=== PATIENT | male | born 1960 | race Caucasian/White ===

== ENCOUNTER 2023-09-13 18:46 | Observation (INO) | payer BC ==
--- NOTE | 2023-09-13 20:45 | ED ---
Abdominal Pain HPI - General Chief Complaint: Abdominal Pain Stated Complaint: transfer-GI Time Seen by Provider: 09/13/23 19:26 Source: patient Mode of arrival: ambulatory Limitations: no limitations - History of Present Illness Initial Comments: 63-year-old male transferred from [facility] presenting to the ED with complaint of abdominal pain. Patient reports for the past week has had diffuse abdominal pain and increased bowel movements. Notes that he has been having up to 10 bowel movements a day and notes that they have been smaller than usual. No blood in the stool. No fever or chills. For this he saw his PCP who ordered a CAT scan which showed perforated acute diverticulitis with focal abscess but no free air. He was then seen at [facility] who provided him 4.5 mg of Zosyn IV at 4:16 PM and was transferred here for surgical evaluation. At this time, patient reports abdominal pain however does report some back pain after sitting in a hospital bed. No nausea or vomiting. Laboratory studies performed at [facility] significant for an elevated white blood cell count at 23. Patient is on Coumadin secondary to a history of atrial fibrillation. - Related Data Home Medications Medication Instructions Recorded Confirmed Cholecalciferol [Vitamin D3 (25 50 mcg PO DAILY 09/13/23 09/13/23 Mcg = 1000 Iu)] Magnesium Citrate and Oxide 250 mg PO DAILY 09/13/23 09/13/23 [Magnesium] Metoprolol Tartrate [Lopressor] 12.5 mg PO BID@0800,2000 09/13/23 09/13/23 Warfarin Sodium 2 mg PO HS@1800 09/13/23 09/13/23 Warfarin Sodium 4 mg PO HS@1800 09/13/23 09/13/23 Warfarin [Coumadin] 3 mg PO HS@1800 09/13/23 09/13/23 Allergies Allergy/AdvReac Type Severity Reaction Status Date / Time No Known Allergies Allergy Verified 09/13/23 20:57 Review of Systems ROS Statement: Those systems with pertinent positive or pertinent negative responses have been documented in the HPI. ROS Other: All systems not noted in ROS Statement are negative. Past Medical History Past Medical History: Atrial Fibrillation, Hypertension History of Any Multi-Drug Resistant Organisms: None Reported Past Surgical History: No Surgical Hx Reported Past Psychological History: No Psychological Hx Reported Smoking Status: Never smoker Past Alcohol Use History: None Reported Past Drug Use History: Marijuana General Exam Limitations: no limitations General appearance: alert, in no apparent distress Eye exam: Present: normal appearance Neck exam: Present: normal inspection Respiratory exam: Present: normal lung sounds bilaterally Cardiovascular Exam: Present: regular rate GI/Abdominal exam: Present: soft, other (Bowel sounds present. There is also an umbilical hernia.). Absent: distended, tenderness, guarding, rebound, rigid Neurological exam: Present: alert, oriented X3 Skin exam: Present: warm, dry Course Vital Signs 09/13/23 19:01 Temperature 98.3 F Pulse Rate 77 Respiratory 18 Rate Blood Pressure 125/77 O2 Sat by Pulse 95 Oximetry Medical Decision Making - Medical Decision Making Was pt. sent in by a medical professional or institution (, PA, TECHNICAL HEALTHCARE CONSULTANT, urgent care, hospital, or fpc...) When possible be specific @ -[facility] Did you speak to anyone other than the patient for history (EMS, parent, family, police, friend...)? What history was obtained from this source @ -No Did you review nursing and triage notes (agree or disagree)? Why? @ -I reviewed and agree with nursing and triage notes Were old charts reviewed (outside hosp., previous admission, EMS record, old EKG, old radiological studies, urgent care reports/EKG's, fpc records)? Report findings @ -Paperwork from [facility] reviewed. For further details please see HPI. Differential Diagnosis (chest pain, altered mental status, abdominal pain women, abdominal pain men, vaginal bleeding, weakness, fever, dyspnea, syncope, headache, dizziness, GI bleed, back pain, seizure, CVA, palpatations, mental health, musculoskeletal)? @ -Differential Abdominal Pain Men: Appendicitis, cholecystitis, diverticulosis, ischemic bowel, pancreatitis, hepatitis, UTI, gastroenteritis, AAA, incarcerated hernia, bowel obstruction, constipation, inflammatory bowel, hepatitis, peptic ulcer disease, splenic infarction, perforated viscus, testicular torsion, this is not meant to be an all-inclusive list EKG interpreted by me (3pts min.). @ -As above X-rays interpreted by me (1pt min.). @ -Chest x-ray pending at this time. CT interpreted by me (1pt min.). @ -None done U/S interpreted by me (1pt. min.). @ -None done What testing was considered but not performed or refused? (CT, X-rays, U/S, labs)? Why? @ -None What meds were considered but not given or refused? Why? @ -None Did you discuss the management of the patient with other professionals (professionals i.e. , PA, TECHNICAL HEALTHCARE CONSULTANT, lab, RT, psych nurse, criminal justice social worker, corporate development manager, teacher, customs officer, casework manager)? Give summary @ -Case discussed with Dr. Chavez of general surgery, who accepts admission of the patient. Advised additional dose of Zosyn with Flagyl. Patient will be kept NPO. Was smoking cessation discussed for >3mins.? @ -No Was critical care preformed (if so, how long)? @ -No Were there social determinants of health that impacted care today? How? (Homelessness, low income, unemployed, alcoholism, drug addiction, transportation, low edu. Level, literacy, decrease access to med. care, [facility], rehab)? @ -No Was there de-escalation of care discussed even if they declined (Discuss DNR or withdrawal of care, Hospice)? DNR status @ -No What co-morbidities impacted this encounter? (DM, HTN, Smoking, COPD, CAD, Cancer, CVA, ARF, Chemo, Hep., AIDS, mental health diagnosis, sleep apnea, morbid obesity)? @ -None Was patient admitted / discharged? Hospital course, mention meds given and route, prescriptions, significant lab abnormalities, going to OR and other pertinent info. @ -Admission 63-year-old male transferred from [facility]. Has been having diffuse abdominal pain and increased nonbloody bowel movements over the past week. CT outpatient performed today showed findings concerning for a perforated diverticulitis with abscess formation however no free air. Patient did have labs performed at [facility] with a white count significant for 23. Repeat laboratory testing at this time is pending. Patient will be admitted n.p.o. to surgical services with consult to medicine. IV antibiotics initiated. Discussed plan of care with patient and family who are in agreement. Undiagnosed new problem with uncertain prognosis? @ -No Drug Therapy requiring intensive monitoring for toxicity (Heparin, Nitro, Insulin, Cardizem)? @ -No Were any procedures done? @ -No Diagnosis/symptom? @ -Suspected perforated diverticulitis with abscess formation no free air Acute, or Chronic, or Acute on Chronic? @ -Acute Uncomplicated (without systemic symptoms) or Complicated (systemic symptoms)? @ -Complicated Side effects of treatment? @ -No Exacerbation, Progression, or Severe Exacerbation? @ -No Poses a threat to life or bodily function? How? (Chest pain, [place], [place], pneumonia, PE, COPD, DKA, ARF, appy, cholecystitis, CVA, Diverticulitis, Homicidal, Suicidal, threat to staff... and all critical care pts) @ -Possibly, however unlikely at this time. Disposition Clinical Impression: Perforated diverticulum Disposition: ADMITTED IP TO THIS HOSP Condition: Good Referrals: Brant Potts MD [Primary Care Provider] - 1-2 days Time of Disposition: 20:30
[2023-09-13] MEDS ORDERED: NALOXONE 0.4 MG/ML 1 ML VIAL IV PRN (21:15)
[2023-09-13] MEDS ORDERED: ONDANSETRON 4 MG/2 ML VIAL IVP PRN (21:15)
[2023-09-13] MEDS ORDERED: HYDROmorphone 1 MG/ML 1 ML SYRINGE IVP PRN (21:15)
[2023-09-13] MEDS: SODIUM CHLORIDE 0.9% 1,000 ML IV STA (21:23)
[2023-09-13] MEDS: HYDROmorphone 0.5 MG/0.5 ML SYRINGE IVP STA (21:24)
[2023-09-13] MEDS: metroNIDAZOLE-NS PMX 500 MG in SALINE 1 100ML.BAG IVPB STA (21:25)
[2023-09-13] MEDS: PIPERACILLIN-TAZOBACTAM 3.375 GM in SODIUM CHLORIDE 0.9% 100 ML IVPB STA (22:35)
[2023-09-13] MEDS: SODIUM CHLORIDE 0.9% 1,000 ML IV SCH (22:35)
--- NOTE | 2023-09-13 23:27 | XR ---
EXAMINATION TYPE: XR chest 1V portable DATE OF EXAM: 09/13/2023 COMPARISON: None INDICATION: Presurgical clearance TECHNIQUE: Single frontal view of the chest is obtained. FINDINGS: The heart size is normal. The pulmonary vasculature is normal. The lungs are clear. There may be mild elevation of the left diaphragm. IMPRESSION: 1. No acute pulmonary process.
[2023-09-13 23:50] LABS: HCT 32.9 % (39.0-53.0); HGB 10.4 gm/dL (13.0-17.5); RBC 3.94 m/uL (4.30-5.90); WBC 16.5 k/uL (3.8-10.6)
[2023-09-13 23:51] LABS: Basophils % (A) 0 %; Eosinophils # (A) 0.1 k/uL (0-0.7); Eosinophils % (A) 1 %; Hypochromasia Slight; Lymphocytes # (A) 0.6 k/uL (1.0-4.8); Lymphocytes % (A) 3 %; MCH 26.3 pg (25.0-35.0); MCHC 31.5 g/dL (31.0-37.0); MCV 83.5 fL (80.0-100.0); Mean Platelet Volume 7.8; Monocytes % (A) 6 %; Neutrophils # (A) 14.5 k/uL (1.3-7.7); Neutrophils % (A) 88 %; Platelet Count 331 k/uL (150-450); RDW 14.9 % (11.5-15.5)
[2023-09-14 00:08] LABS: ALT 17 U/L (4-49); AST 26 U/L (17-59); African American GFR (CKD) >90 (>60 ml/min/1.73 sqM); Albumin 3.2 g/dL (3.5-5.0); Alkaline Phosphatase 79 U/L (38-126); Amylase 43 U/L (30-110); Anion Gap 8 mmol/L; Blood Urea Nitrogen 18 mg/dL (9-20); Calcium 8.3 mg/dL (8.4-10.2); Carbon Dioxide 21 mmol/L (22-30); Chloride 107 mmol/L (98-107); Glucose 97 mg/dL (74-99); Lipase 54 U/L (23-300); Non-African American GFR(CKD) >90 (>60 ml/min/1.73 sqM); Potassium 4.2 mmol/L (3.5-5.1); Sodium 136 mmol/L (137-145); Total Bilirubin 0.5 mg/dL (0.2-1.3); Total Protein 5.9 g/dL (6.3-8.2)
[2023-09-14 00:16] LABS: Prothrombin Time 86.8 sec (10.0-12.5)
[2023-09-14 00:34] LABS: INR 8.8 (<1.2)
[2023-09-14 00:42] LABS: Appearance,Urine Clear (Clear); Bilirubin,Urine Negative (Negative); Blood,Urine Small (Negative); Color,Urine Yellow; Glucose,Urine (UA) Negative (Negative); Ketones,Urine 3+ (Negative); Leukocyte Esterase,Urine Negative (Negative); Mucus,Urine Few /hpf; Nitrite,Urine Negative (Negative); Protein,Urine 2+ (Negative); RBC,Urine 11 /hpf (0-5); Urobilinogen,Urine <2.0 mg/dL (<2.0); WBC,Urine 1 /hpf (0-5)
[2023-09-14] MEDS: HYDROmorphone 0.5 MG/0.5 ML SYRINGE IVP PRN (01:26)
[2023-09-14 10:24] LABS: Basophils % (A) 0 %; Eosinophils # (A) 0.1 k/uL (0-0.7); Eosinophils % (A) 1 %; HCT 37.2 % (39.0-53.0); HGB 11.4 gm/dL (13.0-17.5); Hypochromasia Slight; Lymphocytes # (A) 0.5 k/uL (1.0-4.8); Lymphocytes % (A) 4 %; MCH 25.8 pg (25.0-35.0); MCHC 30.6 g/dL (31.0-37.0); MCV 84.4 fL (80.0-100.0); Mean Platelet Volume 7.6; Monocytes # (A) 0.7 k/uL (0-1.0); Monocytes % (A) 5 %; Neutrophils # (A) 11.4 k/uL (1.3-7.7); Neutrophils % (A) 89 %; Platelet Count 357 k/uL (150-450); RBC 4.41 m/uL (4.30-5.90); RDW 14.8 % (11.5-15.5); WBC 12.8 k/uL (3.8-10.6)
[2023-09-14 10:36] LABS: Prothrombin Time 88.5 sec (10.0-12.5)
[2023-09-14 10:39] LABS: INR 8.9 (<1.2)
[2023-09-14 10:46] LABS: African American GFR (CKD) >90 (>60 ml/min/1.73 sqM); Anion Gap 9 mmol/L; Blood Urea Nitrogen 17 mg/dL (9-20); Calcium 8.7 mg/dL (8.4-10.2); Carbon Dioxide 23 mmol/L (22-30); Chloride 107 mmol/L (98-107); Glucose 102 mg/dL (74-99); Non-African American GFR(CKD) >90 (>60 ml/min/1.73 sqM); Potassium 4.3 mmol/L (3.5-5.1); Sodium 139 mmol/L (137-145)
[2023-09-14] MEDS: PHYTONADIONE 5 MG in SODIUM CHLORIDE 0.9% 50 ML IVPB STA (12:00)
[2023-09-14] MEDS: PIPERACILLIN-TAZOBACTAM 3.375 GM in SODIUM CHLORIDE 0.9% 100 ML IVPB SCH ×2 (13:12→23:24)
--- NOTE | 2023-09-14 13:25 | P.CONS ---
History of Present Illness - Reason for Consult Consult date: 09/14/23 Medical management - History of Present Illness History of present illness; patient is a 63-year-old gentleman with past medical history significant for atrial fibrillation on Coumadin who presented to the ER as a transfer from [facility] for abdominal pain. Patient has been having abdominal pain for the last 1 week. Patient was also having increased frequency of bowel movements, there was no blood in the stools. Denies any nausea or vomiting. Patient was seen by his PCP and they ordered a CT abdominal pelvis which showed perforated acute diverticulitis with focal abscess. Patient was immediately sent to [facility] from there sent to [facility] Initial lab work done in the ER showed WBC 16.5, hemoglobin 10.4, platelet count 331, sodium 136, potassium 4.2, BUN 18, creatinine 0.63, amylase 43 lipase 54, INR 8.8 UA showed urine ketones 3+, urine blood small amounts, nitrite negative, leukocyte esterase negative Chest x-ray done in the ER showed no acute pulmonary process Patient admitted to general surgery REVIEW OF SYSTEMS: CONSTITUTIONAL: No fever, no malaise, no fatigue. HEENT: No recent visual problems or hearing problems. Denied any sore throat. CARDIOVASCULAR: No chest pain, orthopnea, PND, no palpitations, no syncope. PULMONARY: No shortness of breath, no cough, no hemoptysis. GASTROINTESTINAL: As mentioned in HPI NEUROLOGICAL: No headaches, no weakness, no numbness. HEMATOLOGICAL: Denies any bleeding or petechiae. GENITOURINARY: Denies any burning micturition, frequency, or urgency. MUSCULOSKELETAL/RHEUMATOLOGICAL: Denies any joint pain, swelling, or any muscle pain. ENDOCRINE: Denies any polyuria or polydipsia. The rest of the 14-point review of systems is negative. PHYSICAL EXAMINATION: GENERAL: The patient is alert and oriented x3, not in any acute distress. Well developed, well nourished. HEENT: Pupils are round and equally reacting to light. EOMI. No scleral icterus. No conjunctival pallor. Normocephalic, atraumatic. No pharyngeal erythema. No thyromegaly. CARDIOVASCULAR: S1 and S2 present. No murmurs, rubs, or gallops. PULMONARY: Chest is clear to auscultation, no wheezing or crackles. ABDOMEN: Soft, nontender, nondistended, normoactive bowel sounds. No palpable organomegaly. MUSCULOSKELETAL: No joint swelling or deformity. EXTREMITIES: No cyanosis, clubbing, or pedal edema. NEUROLOGICAL: Gross neurological examination did not reveal any focal deficits. SKIN: No rashes. Assessment and plan Acute diverticulitis with focal abscess Abdominal pain Supratherapeutic INR History of atrial fibrillation Monitor vital signs Monitor CBC Monitor CMP Continue telemetry monitoring Continue IV fluids Continue pain management Keep patient n.p.o. Continue IV Zosyn For INR of 8.8, will give 2 units of FFP Hold Coumadin General surgery are on the case. Labs and medication were reviewed.. Continue same treatment. Continue with symptomatic treatment. Resume home medication. Monitor labs and vitals. DVT a nd GI prophylaxis. Further recommendations as per clinical course of the patient Dictation was produced using [employer] dictation software. please excuse any grammatical, word or spelling errors. Past Medical History Past Medical History: Atrial Fibrillation, Hypertension History of Any Multi-Drug Resistant Organisms: None Reported Past Surgical History: No Surgical Hx Reported Past Psychological History: No Psychological Hx Reported Smoking Status: Former smoker Past Alcohol Use History: None Reported Past Drug Use History: Marijuana Medications and Allergies Home Medications Medication Instructions Recorded Confirmed Type Cholecalciferol [Vitamin D3 (25 50 mcg PO DAILY 09/13/23 09/13/23 History Mcg = 1000 Iu)] Magnesium Citrate and Oxide 250 mg PO DAILY 09/13/23 09/13/23 History [Magnesium] Metoprolol Tartrate [Lopressor] 12.5 mg PO BID@0800,2000 09/13/23 09/13/23 History Warfarin Sodium 2 mg PO HS@1800 09/13/23 09/13/23 History Warfarin Sodium 4 mg PO HS@1800 09/13/23 09/13/23 History Warfarin [Coumadin] 3 mg PO HS@1800 09/13/23 09/13/23 History Allergies Allergy/AdvReac Type Severity Reaction Status Date / Time No Known Allergies Allergy Verified 09/13/23 20:57 Physical Exam Vitals: Vital Signs Temp Pulse Pulse Resp BP BP Pulse Ox 09/14/23 07:42 99 F 73 16 124/72 96 09/14/23 03:24 98.6 F 63 16 120/60 97 09/14/23 01:30 98.4 F 69 16 106/58 09/14/23 00:25 73 18 128/73 97 09/13/23 19:01 98.3 F 77 18 125/77 95 Intake and Output 09/13/23 09/14/23 09/14/23 22:59 06:59 14:59 Other: # Voids 1 Weight 70.307 kg 70.307 kg Results CBC & Chem 7: 09/14/23 10:12 09/14/23 10:12 Labs: Abnormal Lab Results - Last 24 Hours (Table) 09/13/23 09/13/23 09/13/23 Range/Units 21:25 21:25 21:25 WBC 16.5 H (3.8-10.6) k/uL RBC 3.94 L (4.30-5.90) m/uL Hgb 10.4 L (13.0-17.5) gm/dL Hct 32.9 L (39.0-53.0) % MCHC (31.0-37.0) g/dL Neutrophils # 14.5 H (1.3-7.7) k/uL Lymphocytes # 0.6 L (1.0-4.8) k/uL PT 86.8 H (10.0-12.5) sec INR 8.8 H* (<1.2) APTT 56.0 H (22.0-30.0) sec Sodium 136 L (137-145) mmol/L Carbon Dioxide 21 L (22-30) mmol/L Creatinine 0.63 L (0.66-1.25) mg/dL Calcium 8.3 L (8.4-10.2) mg/dL Total Protein 5.9 L (6.3-8.2) g/dL Albumin 3.2 L (3.5-5.0) g/dL Ur Specific [place] (1.001-1.035) Urine Protein (Negative) Urine Ketones (Negative) Urine Blood (Negative) Urine RBC (0-5) /hpf Urine Mucus (None) /hpf 09/14/23 09/14/23 09/14/23 Range/Units 00:24 10:12 10:12 WBC 12.8 H (3.8-10.6) k/uL RBC (4.30-5.90) m/uL Hgb 11.4 L (13.0-17.5) gm/dL Hct 37.2 L (39.0-53.0) % MCHC 30.6 L (31.0-37.0) g/dL Neutrophils # 11.4 H (1.3-7.7) k/uL Lymphocytes # 0.5 L (1.0-4.8) k/uL PT 88.5 H (10.0-12.5) sec INR 8.9 H* (<1.2) APTT (22.0-30.0) sec Sodium (137-145) mmol/L Carbon Dioxide (22-30) mmol/L Creatinine (0.66-1.25) mg/dL Calcium (8.4-10.2) mg/dL Total Protein (6.3-8.2) g/dL Albumin (3.5-5.0) g/dL Ur Specific [place] 1.050 H (1.001-1.035) Urine Protein 2+ H (Negative) Urine Ketones 3+ H (Negative) Urine Blood Small H (Negative) Urine RBC 11 H (0-5) /hpf Urine Mucus Few H (None) /hpf
--- NOTE | 2023-09-14 16:43 | P.CON ---
Consult Note - . Consult date: 09/14/23 Assessment/Plan:: patient is a 63-year-old male presenting to [facility] with complaints of abdominal pain for the last several days. patient had an outpatient computed tomography scan performed by his primary care demonstrating a computed tomogra phy scan with diverticulitis/phlegmon. Patient was initially evaluated in the ER. WBC at this time was significantly elevated. He currently denies significant abdominal pain, nausea, vomiting, fevers, chills, shortness of breath or chest pain. Patient denies having history of diverticulitis. I do not as the patient about his last colonoscopy. REVIEW OF SYSTEMS: CONSTITUTIONAL: No fever, no malaise, no fatigue. HEENT: No recent visual problems or hearing problems. Denied any sore throat. CARDIOVASCULAR: No chest pain, orthopnea, PND, no palpitations, no syncope. PULMONARY: No shortness of breath, no cough, no hemoptysis. GASTROINTESTINAL: As mentioned in HPI NEUROLOGICAL: No headaches, no weakness, no numbness. HEMATOLOGICAL: Denies any bleeding or petechiae. GENITOURINARY: Denies any burning micturition, frequency, or urgency. MUSCULOSKELETAL/RHEUMATOLOGICAL: Denies any joint pain, swelling, or any muscle pain. ENDOCRINE: Denies any polyuria or polydipsia. The rest of the 14-point review of systems is negative. PHYSICAL EXAMINATION: GENERAL: The patient is alert and oriented x3, not in any acute distress. Well developed, well nourished. HEENT: Pupils are round and equally reacting to light. EOMI. No scleral icterus. No conjunctival pallor. Normocephalic, atraumatic. No pharyngeal erythema. No thyromegaly. CARDIOVASCULAR: S1 and S2 present. No murmurs, rubs, or gallops. PULMONARY: Chest is clear to auscultation, no wheezing or crackles. ABDOMEN: Soft, nontender, nondistended, normoactive bowel sounds. No palpable organomegaly. MUSCULOSKELETAL: No joint swelling or deformity. EXTREMITIES: No cyanosis, clubbing, or pedal edema. NEUROLOGICAL: Gross neurological examination did not reveal any focal deficits. SKIN: No rashes. assessment and plan 63-year-old male with diverticulitis and associated phlegmon History of A. fib with an INR of 8.8 Patient's pain has significantly resolved Continue IV antibiotics, nothing by mouth, IV fluids Had a discussion with the primary care team. I do not recommend vitamin K but just FFP as there is no plan for OR. The care plan was discussed with the patient stating that if this occurs more than several times causing loss of work or inconvenience of activities of daily living he may consider an elective sigmoidectomy. Treatment emergently consisted of a colostomy bag. Patient is aware of all treatment options. No surgical intervention at this time, likely will be discharged since in a couple of days
--- NOTE | 2023-09-14 21:41 | P.CONS ---
History of Present Illness - Reason for Consult Consult date: 09/14/23 Acute diverticulitis Requesting physician: Geovani Esteves - Chief Complaint Abdominal pain x 1 week - History of Present Illness Patient is 63-year-old male with a past medical history significant for atrial fibrillation hypertension former smoker, presenting to the [facility] for evaluation of abdominal pain apparently the patient seem to having diffuse abdominal pain for the last 1 week that seem to have increased in intensity prompting him to go to the hospital last was complaining of multiple bowel movements per day however did not have any blood or mucus in the stool no fever no chills patient saw his primary care physician who ordered a CAT scan which did shows perforated diverticulitis with focal abscess but no free air patient was evaluated at [facility] for fl the patient was transferred to [facility] for further evaluation on presentation to this facility patient has been afebrile except some low-grade fever this morning patient was not tachycardic hypotensive or hypoxic and no need for supplemental oxygen he did have a white count of 16.5 with a left shift creatinine 0.63 liver enzymes are normal amylase lipase is normal urine is negative infectious disease was consulted for further management of antibiotic therapy patient mention some chills but denies high-grade fever has been complaining of abdominal pain moderate intensity without any radiation some nausea no chest pain shortness of breath or cough no URI symptoms and no urinary symptoms Review of Systems Positive point and negatives has been mentioned in the HPI, complete review of systems was performed and all other systems are negative Past Medical History Past Medical History: Atrial Fibrillation, Hypertension History of Any Multi-Drug Resistant Organisms: None Reported Past Surgical History: No Surgical Hx Reported Past Psychological History: No Psychological Hx Reported Smoking Status: Former smoker Past Alcohol Use History: None Reported Past Drug Use History: Marijuana Medications and Allergies Home Medications Medication Instructions Recorded Confirmed Type Cholecalciferol [Vitamin D3 (25 50 mcg PO DAILY 09/13/23 09/13/23 History Mcg = 1000 Iu)] Magnesium Citrate and Oxide 250 mg PO DAILY 09/13/23 09/13/23 History [Magnesium] Metoprolol Tartrate [Lopressor] 12.5 mg PO BID@0800,2000 09/13/23 09/13/23 History Warfarin Sodium 2 mg PO HS@1800 09/13/23 09/13/23 History Warfarin Sodium 4 mg PO HS@1800 09/13/23 09/13/23 History Warfarin [Coumadin] 3 mg PO HS@1800 09/13/23 09/13/23 History cefUROXime axetiL [Ceftin] 500 mg PO BID 14 Days #28 tab 09/16/23 Rx metroNIDAZOLE [Flagyl] 500 mg PO TID #42 tab 09/16/23 Rx Allergies Allergy/AdvReac Type Severity Reaction Status Date / Time No Known Allergies Allergy Verified 09/13/23 20:57 Physical Exam Vitals: Vital Signs Temp Pulse Pulse Resp BP BP Pulse Ox 09/14/23 07:42 99 F 73 16 124/72 96 09/14/23 03:24 98.6 F 63 16 120/60 97 09/14/23 01:30 98.4 F 69 16 106/58 09/14/23 00:25 73 18 128/73 97 09/13/23 19:01 98.3 F 77 18 125/77 95 Intake and Output 09/13/23 09/14/23 09/14/23 22:59 06:59 14:59 Other: # Voids 1 Weight 70.307 kg 70.307 kg Middle-age male lying in bed in no distress Respiratory system unlabored breathing decreased breath sound the base Heart S1-S2 regular Abdominal soft mild left-sided tenderness Extremities no edema feet Skin no rashes Patient is awake alert oriented x 3 mood and affect is normal Exam completed with the help of INTELLIGENCE AGENT Results CBC & Chem 7: 09/16/23 05:13 09/16/23 05:13 Labs: Abnormal Lab Results - Last 24 Hours (Table) 09/13/23 09/13/23 09/13/23 Range/Units 21:25 21:25 21:25 WBC 16.5 H (3.8-10.6) k/uL RBC 3.94 L (4.30-5.90) m/uL Hgb 10.4 L (13.0-17.5) gm/dL Hct 32.9 L (39.0-53.0) % MCHC (31.0-37.0) g/dL Neutrophils # 14.5 H (1.3-7.7) k/uL Lymphocytes # 0.6 L (1.0-4.8) k/uL PT 86.8 H (10.0-12.5) sec INR 8.8 H* (<1.2) APTT 56.0 H (22.0-30.0) sec Sodium 136 L (137-145) mmol/L Carbon Dioxide 21 L (22-30) mmol/L Creatinine 0.63 L (0.66-1.25) mg/dL Glucose (74-99) mg/dL Calcium 8.3 L (8.4-10.2) mg/dL Total Protein 5.9 L (6.3-8.2) g/dL Albumin 3.2 L (3.5-5.0) g/dL Ur Specific [place] (1.001-1.035) Urine Protein (Negative) Urine Ketones (Negative) Urine Blood (Negative) Urine RBC (0-5) /hpf Urine Mucus (None) /hpf 09/14/23 09/14/23 09/14/23 Range/Units 00:24 10:12 10:12 WBC 12.8 H (3.8-10.6) k/uL RBC (4.30-5.90) m/uL Hgb 11.4 L (13.0-17.5) gm/dL Hct 37.2 L (39.0-53.0) % MCHC 30.6 L (31.0-37.0) g/dL Neutrophils # 11.4 H (1.3-7.7) k/uL Lymphocytes # 0.5 L (1.0-4.8) k/uL PT 88.5 H (10.0-12.5) sec INR 8.9 H* (<1.2) APTT (22.0-30.0) sec Sodium (137-145) mmol/L Carbon Dioxide (22-30) mmol/L Creatinine (0.66-1.25) mg/dL Glucose (74-99) mg/dL Calcium (8.4-10.2) mg/dL Total Protein (6.3-8.2) g/dL Albumin (3.5-5.0) g/dL Ur Specific [place] 1.050 H (1.001-1.035) Urine Protein 2+ H (Negative) Urine Ketones 3+ H (Negative) Urine Blood Small H (Negative) Urine RBC 11 H (0-5) /hpf Urine Mucus Few H (None) /hpf 09/14/23 Range/Units 10:12 WBC (3.8-10.6) k/uL RBC (4.30-5.90) m/uL Hgb (13.0-17.5) gm/dL Hct (39.0-53.0) % MCHC (31.0-37.0) g/dL Neutrophils # (1.3-7.7) k/uL Lymphocytes # (1.0-4.8) k/uL PT (10.0-12.5) sec INR (<1.2) APTT (22.0-30.0) sec Sodium (137-145) mmol/L Carbon Dioxide (22-30) mmol/L Creatinine 0.61 L (0.66-1.25) mg/dL Glucose 102 H (74-99) mg/dL Calcium (8.4-10.2) mg/dL Total Protein (6.3-8.2) g/dL Albumin (3.5-5.0) g/dL Ur Specific [place] (1.001-1.035) Urine Protein (Negative) Urine Ketones (Negative) Urine Blood (Negative) Urine RBC (0-5) /hpf Urine Mucus (None) /hpf Assessment and Plan (1) Intra-abdominal abscess Status: Acute Code(s): K65.1 - PERITONEAL ABSCESS SNOMED Code(s): 00642395 (2) Perforation of sigmoid colon due to diverticulitis Status: Acute Code(s): K57.20 - DVTRCLI OF LG INT W PERFORATION AND ABSCESS W/O BLEEDING SNOMED Code(s): 7917239205821182 Plan: 1patient with abdominal pain in this patient who did have a CT abdominal pelvis with evidence of perforated diverticulitis and peridiverticular abscess likely need to cover for enteric gram-negative both aerobes and anaerobes 2-await surgical evaluation and need for IR versus surgical drainage 3-patient to be advised Zosyn 3.375 g every 8 hours Question concern answered We will follow on clinical condition and cultures to further adjust medication if needed Thank you for this consultation we will follow the patient along with you Dictation was produced using [employer] dictation software. please excuse any grammatical, word or spelling errors. Time with Patient: Greater than 30
[2023-09-14] MEDS: METOPROLOL TARTRATE 12.5 MG TAB PO SCH (22:17)
--- NOTE | 2023-09-15 10:56 | P.PN ---
Subjective Progress Note Date: 09/15/23 Principal diagnosis: Diverticulitis Patient brought to the hospital Josh night with diverticulitis with phlegmon and abscess. Surprisingly patient has minimal to no pain. Says he feels even better than when he came into the hospital. He is hungry. He had a bowel movement yesterday. He is afebrile. White blood cell count mildly elevated. Objective - Vital Signs Vital signs: Vital Signs Temp 98.9 F 09/15/23 07:07 Pulse 67 09/15/23 07:07 Resp 18 09/15/23 07:07 BP 130/74 09/15/23 07:07 Pulse Ox 96 09/15/23 07:07 FiO2 Intake & Output 09/14/23 09/15/23 09/15/23 18:59 06:59 18:59 Intake Total 500 512 Balance 500 512 Intake: IV 500 Sodium Chloride 0.9% 1, 500 000 ml @ 50 mls/hr IV . Q20H [facility] Rx#:[id number] Blood Product 0 512 Ffp 24 Pher Acda Cnt1 0 257 Unit [id number] Ffp 24 Pher Acda Cnt1 255 Unit [id number] Other: Voiding Method Toilet Toilet Urinal # Voids 3 1 - Exam Abdomen: Soft, nondistended, mild lower abdominal tenderness - Labs CBC & Chem 7: 09/14/23 10:12 09/14/23 10:12 Labs: Microbiology - Last 24 Hours (Table) 09/13/23 21:06 Blood Culture - Preliminary Blood 09/13/23 21:21 Blood Culture - Preliminary Blood Assessment and Plan (1) Perforated diverticulum Narrative/Plan: 63-year-old male with perforated sigmoid diverticulitis. Continue conservative management at this time. Begin clear liquid diet. Recheck labs including INR. Ambulate. Will plan repeat CAT scan 7 to 10 days after initial 1. Current Visit: Yes Status: Acute Code(s): K57.80 - DVTRCLI OF INTEST, PART UNSP, W PERF AND ABSCESS W/O BLEED SNOMED Code(s): 88880297
[2023-09-15 11:58] LABS: INR 3.1 (<1.2); Prothrombin Time 30.1 sec (10.0-12.5)
[2023-09-15 12:11] LABS: Basophils % (A) 0 %; Eosinophils # (A) 0.1 k/uL (0-0.7); Eosinophils % (A) 1 %; HCT 34.3 % (39.0-53.0); HGB 10.6 gm/dL (13.0-17.5); Hypochromasia Slight; Lymphocytes # (A) 0.6 k/uL (1.0-4.8); Lymphocytes % (A) 6 %; MCHC 30.9 g/dL (31.0-37.0); MCV 84.1 fL (80.0-100.0); Mean Platelet Volume 7.4; Monocytes # (A) 0.7 k/uL (0-1.0); Monocytes % (A) 8 %; Neutrophils # (A) 7.4 k/uL (1.3-7.7); Neutrophils % (A) 83 %; Platelet Count 334 k/uL (150-450); RBC 4.08 m/uL (4.30-5.90); RDW 14.9 % (11.5-15.5); WBC 8.9 k/uL (3.8-10.6)
--- NOTE | 2023-09-15 12:59 | P.PN ---
Subjective Progress Note Date: 09/15/23 patient is a 63-year-old gentleman with past medical history significant for atrial fibrillation on Coumadin who presented to the ER as a transfer from [facility] for abdominal pain. Patient has been having abdominal pain for the last 1 week. Patient was also having increased frequency of bowel movements, there was no blood in the stools. Denies any nausea or vomiting. Patient was seen by his PCP and they ordered a CT abdominal pelvis which showed perforated acute diverticulitis with focal abscess. Patient was immediately sent to [facility] from there sent to [facility] Initial lab work done in the ER showed WBC 16.5, hemoglobin 10.4, platelet count 331, sodium 136, potassium 4.2, BUN 18, creatinine 0.63, amylase 43 lipase 54, INR 8.8 UA showed urine ketones 3+, urine blood small amounts, nitrite negative, leukocyte esterase negative Chest x-ray done in the ER showed no acute pulmonary process Patient admitted to general surgery 09/14. Patient seen and examined. No abdominal pain. Surgery has started patient on liquid diet REVIEW OF SYSTEMS: CONSTITUTIONAL: No fever, no malaise,. CARDIOVASCULAR: No chest pain, no palpitations, no syncope. PULMONARY: No shortness of breath, no cough, GASTROINTESTINAL: No diarrhea, no nausea, no vomiting, no abdominal pain. NEUROLOGICAL: No headaches, no weakness, PHYSICAL EXAMINATION: GENERAL: The patient is alert and oriented x3, not in any acute distress. Well developed, well nourished. HEENT: Pupils are round and equally reacting to light. EOMI. No scleral icterus. No conjunctival pallor. Normocephalic, atraumatic. No pharyngeal erythema. No thyromegaly. CARDIOVASCULAR: S1 and S2 present. No murmurs, rubs, or gallops. PULMONARY: Chest is clear to auscultation, no wheezing or crackles. ABDOMEN: Soft, nontender, nondistended, normoactive bowel sounds. No palpable organomegaly. MUSCULOSKELETAL: No joint swelling or deformity. EXTREMITIES: No cyanosis, clubbing, or pedal edema. NEUROLOGICAL: Gross neurological examination did not reveal any focal deficits. SKIN: No rashes. Assessment and plan Acute diverticulitis with focal abscess Abdominal pain Supratherapeutic INR History of atrial fibrillation Monitor vital signs Monitor CBC Monitor CMP Continue telemetry monitoring Continue IV fluids Continue pain management Currently on liquid diet, advance diet per surgeon Continue IV Zosyn Hold Coumadin General surgery following ID following Labs and medication were reviewed.. Continue same treatment. Continue with symptomatic treatment. Resume home medication. Monitor labs and vitals. DVT and GI prophylaxis. Further recommendations as per clinical course of the patient Dictation was produced using [employer] dictation software. please excuse any grammatical, word or spelling errors. Objective - Vital Signs Vital signs: Vital Signs Temp 98.9 F 09/15/23 07:07 Pulse 67 09/15/23 07:07 Resp 18 09/15/23 07:07 BP 130/74 09/15/23 07:07 Pulse Ox 96 09/15/23 07:07 FiO2 Intake & Output 09/14/23 09/15/23 09/15/23 18:59 06:59 18:59 Intake Total 500 512 Balance 500 512 Intake: IV 500 Sodium Chloride 0.9% 1, 500 000 ml @ 50 mls/hr IV . Q20H [facility] Rx#:[id number] Blood Product 0 512 Ffp 24 Pher Acda Cnt1 0 257 Unit [id number] Ffp 24 Pher Acda Cnt1 255 Unit [id number] Other: Voiding Method Toilet Toilet Urinal # Voids 3 1 - Labs CBC & Chem 7: 09/15/23 11:57 09/14/23 10:12 Labs: Microbiology - Last 24 Hours (Table) 09/13/23 21:06 Blood Culture - Preliminary Blood 09/13/23 21:21 Blood Culture - Preliminary Blood
[2023-09-16 09:23] LABS: Basophils # (A) 0.05 X 10*3/uL (0.00-0.10); Basophils % (A) 0.5 %; Eosinophils # (A) 0.15 X 10*3/uL (0.04-0.35); Eosinophils % (A) 1.6 %; HCT 39.1 % (39.6-50.0); Lymphocytes # (A) 0.82 X 10*3/uL (0.90-5.00); Lymphocytes % (A) 8.5 %; MCH 25.3 pg (27.0-32.0); MCHC 30.7 g/dL (32.0-37.0); MCV 82.5 FL (80.0-97.0); Mean Platelet Volume 10.5 FL (9.5-12.2); Monocytes # (A) 1.25 X 10*3/uL (0.20-1.00); NRBC Per 100 WBC 0 X 10*3/uL (0.00-0.01); Neutrophils # (A) 7.31 X 10*3/uL (1.80-7.70); Neutrophils % (A) 75.8 %; Platelet Count 463 X 10*3/uL (140-440); RBC 4.74 X 10*6/uL (4.40-5.60); RDW 15.7 % (11.5-14.5); WBC 9.64 X 10*3/uL (4.50-10.00)
--- NOTE | 2023-09-16 09:46 | P.DS ---
Providers Date of admission: 09/13/23 22:21 Expected date of discharge: 09/16/23 Attending physician: Stoney Chavez Consults: 09/13/23 21:15 Consult Physician Urgent Consulting Provider: Joey Cordoba Consult Reason/Comments: Diverticulitis w/ abscess formation w/o free air Do you want consulting provider notified?: Yes 09/14/23 10:52 Consult Physician Routine Consulting Provider: Kate Roque Consult Reason/Comments: Acute diverticulitis Do you want consulting provider notified?: Yes Primary care physician: Brant Potts MD - Discharge Diagnosis(es) (1) Perforated diverticulum Patient was admitted with acute diverticulitis with abscess and phlegmon. Clinically the patient has done extremely well since admission. He has had very little discomfort. He is afebrile. White blood cell count is normal. Patient would like to go home today. Will discuss further with infectious disease. Plan discharge later today. Will plan repeat CAT scan 1 to 2 weeks. Follow-up as outpatient. Current Visit: Yes Status: Acute Patient Condition at Discharge: Good Plan - Discharge Summary Discharge Rx Participant: No New Discharge Prescriptions: No Action Warfarin [Coumadin] 3 mg PO HS@1800 Warfarin Sodium 4 mg PO HS@1800 Warfarin Sodium 2 mg PO HS@1800 Magnesium Citrate and Oxide [Magnesium] 250 mg PO DAILY Cholecalciferol [Vitamin D3 (25 Mcg = 1000 Iu)] 50 mcg PO DAILY Metoprolol Tartrate [Lopressor] 12.5 mg PO BID@0800,1999 Discharge Medication List Cholecalciferol [Vitamin D3 (25 Mcg = 1000 Iu)] 50 mcg PO DAILY 09/13/23 [History] Magnesium Citrate and Oxide [Magnesium] 250 mg PO DAILY 09/13/23 [History] Metoprolol Tartrate [Lopressor] 12.5 mg PO BID@0800,199909/13/23 [History] Warfarin Sodium 2 mg PO HS@1800 09/13/23 [History] Warfarin Sodium 4 mg PO HS@1800 09/13/23 [History] Warfarin [Coumadin] 3 mg PO HS@1800 09/13/23 [History] Follow up Appointment(s)/Referral(s): Brant Potts MD [Primary Care Provider] - 1-2 days Stoney Chavez MD [Medical Doctor] - 1 Week
[2023-09-16 10:06] LABS: ALT 17 U/L (10-49); AST 25 U/L (14-35); Albumin 3.9 g/dL (3.8-4.9); Albumin/Globulin Ratio 1.22 Ratio (1.60-3.17); Alkaline Phosphatase 88 U/L (41-126); BUN/Creat Ratio 14.38 Ratio (12.00-20.00); Blood Urea Nitrogen 11.5 mg/dL (9.0-27.0); Calcium 9.4 mg/dL (8.7-10.3); Carbon Dioxide 20.5 mmol/L (21.6-31.8); Chloride 102 mmol/L (96-109); Globulin 3.2 g/dL (1.6-3.3); Glucose 143 mg/dL (70-110); Potassium 4.4 mmol/L (3.5-5.5); Sodium 139 mmol/L (135-145); Total Bilirubin 0.4 mg/dL (0.3-1.2); Total Protein 7.1 g/dL (6.2-8.2)
[2023-09-16] MEDS ORDERED: ERTAPENEM 1 GM in SODIUM CHLORIDE 0.9% 50 ML IVPB STA (13:44)
--- NOTE | 2023-09-16 14:34 | P.PN ---
Subjective Progress Note Date: 09/16/23 patient is a 63-year-old gentleman with past medical history significant for atrial fibrillation on Coumadin who presented to the ER as a transfer from [facility] for abdominal pain. Patient has been having abdominal pain for the last 1 week. Patient was also having increased frequency of bowel movements, there was no blood in the stools. Denies any nausea or vomiting. Patient was seen by his PCP and they ordered a CT abdominal pelvis which showed perforated acute diverticulitis with focal abscess. Patient was immediately sent to [facility] from there sent to [facility] Initial lab work done in the ER showed WBC 16.5, hemoglobin 10.4, platelet count 331, sodium 136, potassium 4.2, BUN 18, creatinine 0.63, amylase 43 lipase 54, INR 8.8 UA showed urine ketones 3+, urine blood small amounts, nitrite negative, leukocyte esterase negative Chest x-ray done in the ER showed no acute pulmonary process Patient admitted to general surgery 09/14. Patient seen and examined. No abdominal pain. Surgery has started patient on liquid diet 09/15. Patient seen and examined. Tolerating liquid diet. Surgery planning to discharge patient on oral antibiotics today REVIEW OF SYSTEMS: CONSTITUTIONAL: No fever, no malaise,. CARDIOVASCULAR: No chest pain, no palpitations, no syncope. PULMONARY: No shortness of breath, no cough, GASTROINTESTINAL: No diarrhea, no nausea, no vomiting, no abdominal pain. NEUROLOGICAL: No headaches, no weakness, PHYSICAL EXAMINATION: GENERAL: The patient is alert and oriented x3, not in any acute distress. Well developed, well nourished. HEENT: Pupils are round and equally reacting to light. EOMI. No scleral icterus. No conjunctival pallor. Normocephalic, atraumatic. No pharyngeal erythema. No thyromegaly. CARDIOVASCULAR: S1 and S2 present. No murmurs, rubs, or gallops. PULMONARY: Chest is clear to auscultation, no wheezing or crackles. ABDOMEN: Soft, nontender, nondistended, normoactive bowel sounds. No palpable organomegaly. MUSCULOSKELETAL: No joint swelling or deformity. EXTREMITIES: No cyanosis, clubbing, or pedal edema. NEUROLOGICAL: Gross neurological examination did not reveal any focal deficits. SKIN: No rashes. Assessment and plan Acute diverticulitis with focal abscess Abdominal pain Supratherapeutic INR History of atrial fibrillation Monitor vital signs Monitor CBC Monitor CMP Continue telemetry monitoring Continue IV fluids Continue pain management Currently on liquid diet, advance diet per surgeon Continue IV Zosyn Resume Coumadin General surgery following, planning to discharge patient on oral antibiotics ID following Labs and medication were reviewed.. Continue same treatment. Continue with symptomatic treatment. Resume home medication. Monitor labs and vitals. DVT and GI prophylaxis. Further recommendations as per clinical course of the patient Dictation was produced using [employer] dictation software. please excuse any grammatical, word or spelling errors. Objective - Vital Signs Vital signs: Vital Signs Temp 97.9 F 09/16/23 07:51 Pulse 69 09/16/23 07:51 Resp 18 09/16/23 07:51 BP 131/72 09/16/23 07:51 Pulse Ox 95 09/16/23 07:51 FiO2 Intake & Output 09/15/23 09/16/23 09/16/23 18:59 06:59 18:59 Other: Voiding Method Toilet # Voids 2 3 - Labs CBC & Chem 7: 09/16/23 05:13 09/16/23 05:13 Labs: Abnormal Lab Results - Last 24 Hours (Table) 09/16/23 09/16/23 Range/Units 05:13 05:13 Hgb 12.0 L (13.0-17.0) g/dL Hct 39.1 L (39.6-50.0) % MCH 25.3 L (27.0-32.0) pg MCHC 30.7 L (32.0-37.0) g/dL RDW 15.7 H (11.5-14.5) % Plt Count 463 H (140-440) X 10*3/uL Immature Gran # 0.06 H (0.00-0.04) X 10*3/uL Lymphocytes # 0.82 L (0.90-5.00) X 10*3/uL Monocytes # 1.25 H (0.20-1.00) X 10*3/uL Carbon Dioxide 20.5 L (21.6-31.8) mmol/L Anion Gap 16.50 H (4.00-12.00) mmol/L Glucose 143 H (70-110) mg/dL Albumin/Globulin Ratio 1.22 L (1.60-3.17) Ratio Microbiology - Last 24 Hours (Table) 09/13/23 21:06 Blood Culture - Preliminary Blood 09/13/23 21:21 Blood Culture - Preliminary Blood
[2023-09-16 15:15] VITALS: BP 119/75; PULSE 66; RESP 16; TEMP 98.4
--- NOTE | 2023-09-17 08:34 | P.PN ---
Subjective Progress Note Date: 09/15/23 Principal diagnosis: Reason for follow-up is acute perforated diverticulitis and abscess Patient is 63-year-old male with a past medical history significant for atrial fibrillation hypertension former smoker, presenting to the [facility] for evaluation of abdominal pain, patient did have a CT suggestive of perforated diverticulitis with a focal abscess with the patient will be transferred to [facility]. On today's evaluation that is 09/15/2023, the patient continues to be afebrile, the patient is on room air and breathing comfortably, the Pt denies having any chest pain or cough, the patient denies having any vomiting abdominal pain has decreased in intensity and did have bowel movement. Patient white count normalized to 8.9 Objective - Vital Signs Vital signs: Vital Signs Temp 98.9 F 09/15/23 07:07 Pulse 67 09/15/23 07:07 Resp 18 09/15/23 07:07 BP 130/74 09/15/23 07:07 Pulse Ox 96 09/15/23 07:07 FiO2 Intake & Output 09/14/23 09/15/23 09/15/23 18:59 06:59 18:59 Intake Total 500 512 Balance 500 512 Intake: IV 500 Sodium Chloride 0.9% 1, 500 000 ml @ 50 mls/hr IV . Q20H [facility] Rx#:[id number] Blood Product 0 512 Ffp 24 Pher Acda Cnt1 0 257 Unit [id number] Ffp 24 Pher Acda Cnt1 255 Unit [id number] Other: Voiding Method Toilet Urinal # Voids 3 1 - Labs CBC & Chem 7: 09/16/23 05:13 09/16/23 05:13 Labs: Abnormal Lab Results - Last 24 Hours (Table) 09/14/23 09/14/23 09/14/23 Range/Units 10:12 10:12 10:12 WBC 12.8 H (3.8-10.6) k/uL Hgb 11.4 L (13.0-17.5) gm/dL Hct 37.2 L (39.0-53.0) % MCHC 30.6 L (31.0-37.0) g/dL Neutrophils # 11.4 H (1.3-7.7) k/uL Lymphocytes # 0.5 L (1.0-4.8) k/uL PT 88.5 H (10.0-12.5) sec INR 8.9 H* (<1.2) Creatinine 0.61 L (0.66-1.25) mg/dL Glucose 102 H (74-99) mg/dL Microbiology - Last 24 Hours (Table) 09/13/23 21:06 Blood Culture - Preliminary Blood 09/13/23 21:21 Blood Culture - Preliminary Blood Assessment and Plan (1) Perforation of sigmoid colon due to diverticulitis Status: Acute Code(s): K57.20 - DVTRCLI OF LG INT W PERFORATION AND ABSCESS W/O BLEEDING SNOMED Code(s): 0638158119285685 (2) Intra-abdominal abscess Status: Acute Code(s): K65.1 - PERITONEAL ABSCESS SNOMED Code(s): 86026704 Plan: 1patient with abdominal pain in this patient who did have a CT abdominal pelvis with evidence of perforated diverticulitis and peridiverticular abscess likely need to cover for enteric gram-negative both aerobes and anaerobes 2-patient has been evaluated by general surgery recommending no surgical drainage 3-patient did have some with improvement and will continue with Zosyn 3.375 g every 8 hours while waiting for the culture to finalize Dictation was produced using [employer] dictation software. please excuse any grammatical, word or spelling errors. Time with Patient: Less than 30
--- NOTE | 2023-09-17 08:36 | P.PN ---
Subjective Progress Note Date: 09/16/23 Principal diagnosis: Reason for follow-up is acute perforated diverticulitis and abscess Patient is 63-year-old male with a past medical history significant for atrial fibrillation hypertension former smoker, presenting to the [facility] for evaluation of abdominal pain, patient did have a CT suggestive of perforated diverticulitis with a focal abscess with the patient will be transferred to [facility]. On today's evaluation that is 09/16/2023, Patient is afebrile patient is currently on room air and denies having any shortness of breath, the patient denies any chest pain or cough, the patient denies any nausea vomiting denies abdominal pain did have a bowel movement feeling better. Patient white count is 9.64 creatinine 0.8 Objective - Vital Signs Vital signs: Vital Signs Temp 97.9 F 09/16/23 07:51 Pulse 69 09/16/23 07:51 Resp 18 09/16/23 07:51 BP 131/72 09/16/23 07:51 Pulse Ox 95 09/16/23 07:51 FiO2 Intake & Output 09/15/23 09/16/23 09/16/23 18:59 06:59 18:59 Other: Voiding Method Toilet # Voids 2 3 - Exam GENERAL DESCRIPTION: Middle-age male lying in bed in no distress RESPIRATORY SYSTEM: Unlabored breathing , decreased breath sounds at bases HEART: S1 S2 regular rate and rhythm , ABDOMEN: Soft , no tenderness EXTREMITIES: No edema feet - Labs CBC & Chem 7: 09/16/23 05:13 09/16/23 05:13 Labs: Abnormal Lab Results - Last 24 Hours (Table) 09/16/23 09/16/23 Range/Units 05:13 05:13 Hgb 12.0 L (13.0-17.0) g/dL Hct 39.1 L (39.6-50.0) % MCH 25.3 L (27.0-32.0) pg MCHC 30.7 L (32.0-37.0) g/dL RDW 15.7 H (11.5-14.5) % Plt Count 463 H (140-440) X 10*3/uL Immature Gran # 0.06 H (0.00-0.04) X 10*3/uL Lymphocytes # 0.82 L (0.90-5.00) X 10*3/uL Monocytes # 1.25 H (0.20-1.00) X 10*3/uL Carbon Dioxide 20.5 L (21.6-31.8) mmol/L Anion Gap 16.50 H (4.00-12.00) mmol/L Glucose 143 H (70-110) mg/dL Albumin/Globulin Ratio 1.22 L (1.60-3.17) Ratio Microbiology - Last 24 Hours (Table) 09/13/23 21:06 Blood Culture - Preliminary Blood 09/13/23 21:21 Blood Culture - Preliminary Blood Assessment and Plan (1) Intra-abdominal abscess Status: Acute Code(s): K65.1 - PERITONEAL ABSCESS SNOMED Code(s): 41274118 (2) Perforation of sigmoid colon due to diverticulitis Status: Acute Code(s): K57.20 - DVTRCLI OF LG INT W PERFORATION AND ABSCESS W/O BLEEDING SNOMED Code(s): 2551526206635758 Plan: 1patient with abdominal pain in this patient who did have a CT abdominal pelvis with evidence of perforated diverticulitis and peridiverticular abscess likely need to cover for enteric gram-negative both aerobes and anaerobes 2-patient has been evaluated by general surgery recommending no surgical drainage 3-patient has been cleared for discharge by surgical team detailed discussion with the surgeon as well as with the patient and his even though patient has shown clinical improvement still high risk of failure of oral antibiotic therapy both patient and the surgeon understand the risk we will suggest oral Ceftin and Flagyl x 2 weeks on discharge we will give a dose of Invanz before discharge also advised he needs to monitor his Coumadin closely while on antibiotic therapy patient mention he will be going for an INR check tomorrow advised to have it at least once or twice a week while on antibiotics also advised a soft right no straining on the stool and apparently surgeon is scheduling follow-up CT next week Dictation was produced using [employer] dictation software. please excuse any grammatical, word or spelling errors. Time with Patient: Greater than 30
== END 2023-09-16 15:23 | disposition home or self-care (01) ==
LOC: EC 18:46 → 4SSUR 22:21
PROVIDERS: ADMIT Surgery; ATTEND Surgery
DX: K57.20 Diverticulitis of large intestine with perforation and abscess without bleeding (principal); Z93.3 Colostomy status; Z79.01 Long term (current) use of anticoagulants; I48.91 Unspecified atrial fibrillation
CPT/HCPCS: 96365; 96366 ×3; 96367 ×2; 36430; 99285; 93005; 86900; 86901; 80053 ×2; 80048; 82150; 83605 ×2; 83690; 85025 ×4; 85610 ×3; 85730; 86850; 81001; 87040; 71045; G0378 ×4; P9059; J2543 ×4; J1170 ×2; J1836

== ENCOUNTER → 2023-10-10 | Outpatient (CLI) | payer BC ==
--- NOTE | 2023-10-12 18:24 | CT ---
EXAMINATION TYPE: CT abdomen pelvis w con DATE OF EXAM: 10/10/2023 COMPARISON: None INDICATION: abdominal pain, hx of diverticulitis DLP: 1222 mGycm, Automated exposure control for dose reduction was used. CONTRAST: 100ml mL of Isovue 300. Study performed with Oral Contrast TECHNIQUE: Axial images were obtained from above the diaphragm to the pubic rami in the axial plane a t 5 mm thick sections. Reconstructed images are reviewed on the computer in the coronal plane. FINDINGS: Limited CT sections are obtained the lung bases. The lung bases are clear. Mild coronary artery michaela cification is present. CT ABDOMEN: Liver: Normal Spleen: Normal Pancreas: Normal Adrenal glands: The adrenal glands are normal. Gallbladder: Small gallstones are clinically gallbladder. Kidneys: No masses are evident. No hydronephrosis is present. No cysts are present. r Aorta: Vascular calcification is within the aorta. Inferior vena cava: Normal. CT PELVIS: There is a periumbilical hernia with an opening of 1.4 cm. Mesenteric fat is present with bulging of the umbilicus. No loops of bowel are involved. Bowel: Sigmoid colon is thickened. There is some low density within the wall of the sigmoid colon dis tally. Some wall abscess may be present measuring 3.9 x 2.3 cm. Differential diagnosis could include neoplasm. While Inflammatory changes present adjacent. Appendix: Normal as visualized. Urinary bladder: Normal. Genitourinary structures: Prostate is normal Osseous structures: No suspicious lytic or sclerotic lesions. IMPRESSION: 1. Thickened distal sigmoid with mild adjacent inflammatory change. There is some low density within the sigmoid wall. Acute mild diverticulitis with wall abscess should be considered. Differential sofiya gnosis includes neoplasm. Follow-up recommended. A [place] critical message alert has been initiated for Stoney Chavez MD via the [employer] Critical Results System on 10/12/2023 6:21 PM. This message alert has been sent to Stoney Chavez MD via the preferences provided by the clinician for the receipt of Radiology Critical Findings. Message ID [id number].
--- NOTE | 2023-10-14 09:40 | P.PN ---
Progress Note - Text Progress Note Date: 10/14/23 Called patient after reviewing CAT scan. Read alert from radiology noted. Patient has residual inflammatory changes with wall thickening of the sigmoid colon. Possible intramural abscess. Patient finished his antibiotics about 10 to 14 days ago. He had trouble with significant joint pain with his Ceftin and Flagyl. He feels well. Has no pain. No bowel function abnormalities. No rectal bleeding. Will start a second course of antibiotics of Levaquin 500 mg once daily for 10 days. Will make arrangements for colonoscopy in the next 4 to 6 weeks. Patient will contact me with any lower abdominal complaints.
== END | disposition home or self-care (01) ==
LOC: RADCTMAIN 13:16
PROVIDERS: ATTEND Surgery
DX: K57.32 Diverticulitis of large intestine without perforation or abscess without bleeding (principal)
CPT/HCPCS: 74177; Q9967

== ENCOUNTER 2024-10-12 09:34 | Inpatient (IN) | payer BC ==
--- NOTE | 2024-10-12 10:11 | ED ---
Abdominal Pain HPI - General Chief Complaint: Abdominal Pain Stated Complaint: abd pain Time Seen by Provider: 10/12/24 10:11 Source: patient, family, RN notes reviewed, old records reviewed Mode of arrival: ambulatory Limitations: no limitations - History of Present Illness Initial Comments: 64-year-old male presented the ER for evaluation of abdominal pain. Patient states 1 week ago he felt ill and believed it was a stomach bug. He states a couple of days either Saturday or of last week he began to have frequent bouts of nausea with vomiting. He also reports frequent stools states they are not diarrhea. Admits to flatulence and states he has noticed he has been belching frequently. He denies any hematic emesis, coffee-ground emesis, hematochezia or melena. Patient also was endorsing intermittent pressure lower abdominal pain. Upon evaluation patient reports no pain. He denies any urinary frequency, dysuria or hematuria. Patient has taken [id number] Tylenol without relief of symptoms. Patient reports he is following up with as last year he had diverticulitis with abscess formation. Patient was referred to [facility] and had colonoscopy completed in February 2024. He states he was told he would be contacted in 3 to 6 months if follow-up is needed. He states he has not heard from [facility] at this time. Denies any fevers, chills, chest pain, shortness of breath or peripheral edema. - Related Data Home Medications Medication Instructions Recorded Confirmed Cholecalciferol [Vitamin D3 (25 50 mcg PO DAILY 09/13/23 09/13/23 Mcg = 1000 Iu)] Magnesium Citrate and Oxide 250 mg PO DAILY 09/13/23 09/13/23 [Magnesium] Metoprolol Tartrate [Lopressor] 12.5 mg PO BID@0800,199909/13/23 09/13/23 Warfarin Sodium 2 mg PO HS@1800 09/13/23 09/13/23 Warfarin Sodium 4 mg PO HS@179909/13/23 09/13/23 Warfarin [Coumadin] 3 mg PO HS@1800 09/13/23 09/13/23 Previous Rx's Medication Instructions Recorded cefuroxime axetiL [Ceftin] 500 mg PO BID 14 Days #28 tab 09/16/23 metroNIDAZOLE [Flagyl] 500 mg PO TID #42 tab 09/16/23 Levofloxacin [Levaquin] 500 mg PO DAILY 10 Days #10 tab 10/14/23 Allergies Allergy/AdvReac Type Severity Reaction Status Date / Time No Known Allergies Allergy Verified 10/12/24 09:53 Review of Systems ROS Statement: Those systems with pertinent positive or pertinent negative responses have been documented in the HPI. ROS Other: All systems not noted in ROS Statement are negative. Past Medical History Past Medical History: Atrial Fibrillation, Hypertension Additional Past Medical History / Comment(s): Dry AMD History of Any Multi-Drug Resistant Organisms: None Reported Past Surgical History: No Surgical Hx Reported Past Psychological History: No Psychological Hx Reported Smoking Status: Former smoker Past Alcohol Use History: None Reported Past Drug Use History: Marijuana General Exam Limitations: no limitations General appearance: alert, in no apparent distress Respiratory exam: Present: normal lung sounds bilaterally. Absent: respiratory distress, wheezes, rales, rhonchi, stridor Cardiovascular Exam: Present: regular rate, normal rhythm, normal heart sounds. Absent: systolic murmur, diastolic murmur, rubs, gallop, clicks GI/Abdominal exam: Present: soft, tenderness (inferior to umbilicus), normal bowel sounds, hernia (umbilical) Extremities exam: Present: normal inspection, full ROM, normal capillary refill. Absent: tenderness, pedal edema, joint swelling, calf tenderness Neurological exam: Present: alert, oriented X3, CN II-XII intact Skin exam: Present: warm, dry, intact, normal color. Absent: rash Course Vital Signs 10/12/24 10/12/24 10/12/24 09:49 10:17 11:23 Temperature 62 F L 98.4 F 98.1 F Pulse Rate 62 55 L Respiratory 18 20 Rate Blood Pressure 133/85 155/88 O2 Sat by Pulse 98 99 Oximetry 10/12/24 12:35 Temperature Pulse Rate 62 Respiratory 20 Rate Blood Pressure 151/88 O2 Sat by Pulse 96 Oximetry - Reevaluation(s) Reevaluation #1: 10/12/24 12:[address] Chavez. He accepts admission. Agreeable to NG tube, n.p.o. diet, antibiotics. Hold Coumadin for possibility of surgical intervention Medical Decision Making - Medical Decision Making Was pt. sent in by a medical professional or institution (, PA, LANDSCAPE ARCHITECTURE TEACHER, urgent care, hospital, or usp...) When possible be specific @ -No Did you speak to anyone other than the patient for history (EMS, parent, family, police, friend...)? What history was obtained from this source @ -Patient's , at bedside, aiding in HPI past medical history. Did you review nursing and triage notes (agree or disagree)? Why? @ -I reviewed and agree with nursing and triage notes Were old charts reviewed (outside hosp., previous admission, EMS record, old E KG, old radiological studies, urgent care reports/EKG's, usp records)? Report findings @ -ER visit and admission from 09/13/23 reviewed patient admitted for diverticulitis with abscess. Patient treated with IV Zosyn. Patient ultimately discharged home on oral antibiotics with follow-up to general surgery on 09-16-2023. Differential Diagnosis (chest pain, altered mental status, abdominal pain women, abdominal pain men, vaginal bleeding, weakness, fever, dyspnea, syncope, headache, dizziness, GI bleed, back pain, seizure, CVA, palpatations, mental health, musculoskeletal)? @ -Differential Abdominal Pain Men:Appendicitis, cholecystitis, diverticulosis, ischemic bowel, pancreatitis, hepatitis, UTI, gastroenteritis, AAA, incarcerated hernia, bowel obstruction, constipation, inflammatory bowel, hepatitis, peptic ulcer disease, splenic infarction, perforated viscus, testicular torsion, this is not meant to be an all-inclusive list EKG interpreted by me (3pts min.). @ -None done X-rays interpreted by me (1pt min.). @ -None done CT interpreted by me (1pt min.). @ -CT abdomen pelvis showing a thickened distal sigmoid colon. The proximal sigmoid colon and descending colon he has thickened wall. Dilated loops of colon and prominent loops of small bowel filled with air scattered air-fluid levels noted. Correlate for distal colonic stenosis or obstruction. Cannot rule out underlying neoplasm. Cholelithiasis. Periumbilical fat-containing hernia. U/S interpreted by me (1pt. min.). @ -None done What testing was considered but not performed or refused? (CT, X-rays, U/S, labs)? Why? @ -None What meds were considered but not given or refused? Why? @ -None Did you discuss the management of the patient with other professionals (professionals i.e. , PA, LANDSCAPE ARCHITECTURE TEACHER, lab, RT, psych nurse, social media strategist, sharepoint consultant, teacher, lead security officer, child welfare caseworker)? Give summary @ -Yes, case discussed with . He accepts admission. He is requesting antibiotics, hold Coumadin, NG tube placement. Was smoking cessation discussed for >3mins.? @ -No Was critical care preformed (if so, how long)? @ -No Were there social determinants of health that impacted care today? How? (Homelessness, low income, unemployed, alcoholism, drug addiction, transportation, low edu. Level, literacy, decrease access to med. care, fpc, rehab)? @ -No Was there de-escalation of care discussed even if they declined (Discuss DNR or withdrawal of care, Hospice)? DNR status @ -No What co-morbidities impacted this encounter? (DM, HTN, Smoking, COPD, CAD, Cancer, CVA, ARF, Chemo, Hep., AIDS, mental health diagnosis, sleep apnea, morbid obesity)? @ -History of atrial fibrillation on Coumadin, history of diverticulitis, hypertension Was patient admitted / discharged? Hospital course, mention meds given and route, prescriptions, significant lab abnormalities, going to OR and other pertinent info. @ -Admitted. 64-year-old male presenting to the ER for evaluation of abdominal pain, nausea and vomiting x 1 week. Upon arrival vital signs stable patient in no signs of acute distress nontoxic-appearing. There is focal infraumbilical abdominal tenderness. No rebound or guarding. Laboratory studies along with CT abdomen pelvis obtained, patient is agreeable. Patient initially refusing analgesic medications. Laboratory studies remarkable for leukocytosis of 10.6 with left shift. Lactic 1.1. Urinalysis with 1+ ketones and trace protein likely reactive. No evidence of urinary infection. CT ab and pelvis concerning of colonic stenosis or obstruction. Given these findings, case was discussed with Dr. Chavez, who accepts admission. NG tube placed, patient n.p.o. and Coumadin on hold per general surgery. Patient empirically started on IV Zosyn f or infection prophylaxis, blood cultures obtained prior to antibiotic initiation. Medicine on consult. Upon reevaluation, patient resting comfortably on stretcher no signs of acute distress. Patient requesting analgesic medications at that time which were ordered. Results discussed with patient, all questions answered. He is agreeable for admission at this time and admitted in stable condition. Case discussed with ED attending, Dr. Chin. Undiagnosed new problem with uncertain prognosis? @ -No Drug Therapy requiring intensive monitoring for toxicity (Heparin, Nitro, Ins ulin, Cardizem)? @ -No Were any procedures done? @ -No Diagnosis/symptom? @ -Bowel obstruction Acute, or Chronic, or Acute on Chronic? @ -Acute Uncomplicated (without systemic symptoms) or Complicated (systemic symptoms)? @ -Complicated Side effects of treatment? @ -No Exacerbation, Progression, or Severe Exacerbation? @ -No Poses a threat to life or bodily function? How? (Chest pain, USA, GA, pneumonia, PE, COPD, DKA, ARF, appy, cholecystitis, CVA, Diverticulitis, Homicidal, Suicidal, threat to staff... and all critical care pts) @ -Yes, cannot rule out malignancy - Lab Data Result diagrams: 10/12/24 10:36 10/12/24 10:36 Lab Results 10/12/24 10/12/24 10/12/24 Range/Units 10:36 10:36 10:36 WBC 10.60 H (4.50-10.00) 10*3/uL RBC 4.82 (4.40-5.60) 10*6/uL Hgb 13.4 (13.0-17.0) g/dL Hct 40.6 (39.6-50.0) % MCV 84.2 (80.0-97.0) fL MCH 27.8 (27.0-32.0) pg MCHC 33.0 (32.0-37.0) g/dL Plt Count 311 (140-440) 10*3/uL MPV 10.3 (9.5-12.2) fL Immature Gran % (Auto) 0.3 % Neutrophils % 74.0 % Lymphocytes % 11.1 % Monocytes % 12.9 % Eosinophils % 1.3 % Basophils % 0.4 % Immature Gran # 0.03 (0.00-0.04) 10*3/uL Neutrophils # 7.84 H (1.80-7.70) 10*3/uL Lymphocytes # 1.18 (0.90-5.00) 10*3/uL Monocytes # 1.37 H (0.20-1.00) 10*3/uL Eosinophils # 0.14 (0.04-0.35) 10*3/uL Basophils # 0.04 (0.00-0.10) 10*3/uL PT (10.0-12.5) sec INR (<1.2) APTT (22.0-30.0) sec Sodium 140 (137-145) mmol/L Potassium 3.9 (3.5-5.1) mmol/L Chloride 108 H (98-107) mmol/L Carbon Dioxide 21 L (22-30) mmol/L Anion Gap 11 mmol/L BUN 19 (9-20) mg/dL Creatinine 0.56 L (0.66-1.25) mg/dL Est GFR (CKD-EPI)AfAm >90 (>60 ml/min/1.73 sqM) Est GFR (CKD-EPI)NonAf >90 (>60 ml/min/1.73 sqM) Glucose 125 H (74-99) mg/dL Plasma Lactic Acid [place] 1.1 (0.7-2.0) mmol/L Calcium 9.7 (8.4-10.2) mg/dL Total Bilirubin 0.5 (0.2-1.3) mg/dL AST 19 (17-59) U/L ALT 11 (4-49) U/L Alkaline Phosphatase 91 (38-126) U/L Total Protein 7.4 (6.3-8.2) g/dL Albumin 4.7 (3.5-5.0) g/dL Amylase 51 (30-110) U/L Lipase 108 (23-300) U/L Urine Color Urine Appearance (Clear) Urine pH (5.0-8.0) Ur Specific [place] (1.001-1.035) Urine Protein (Negative) Urine Glucose (UA) (Negative) Urine Ketones (Negative) Urine Blood (Negative) Urine Nitrite (Negative) Urine Bilirubin (Negative) Urine Urobilinogen (<2.0) mg/dL Ur Leukocyte Esterase (Negative) 10/12/24 10/12/24 Range/Units 10:39 11:25 WBC (4.50-10.00) 10*3/uL RBC (4.40-5.60) 10*6/uL Hgb (13.0-17.0) g/dL Hct (39.6-50.0) % MCV (80.0-97.0) fL MCH (27.0-32.0) pg MCHC (32.0-37.0) g/dL Plt Count (140-440) 10*3/uL MPV (9.5-12.2) fL Immature Gran % (Auto) % Neutrophils % % Lymphocytes % % Monocytes % % Eosinophils % % Basophils % % Immature Gran # (0.00-0.04) 10*3/uL Neutrophils # (1.80-7.70) 10*3/uL Lymphocytes # (0.90-5.00) 10*3/uL Monocytes # (0.20-1.00) 10*3/uL Eosinophils # (0.04-0.35) 10*3/uL Basophils # (0.00-0.10) 10*3/uL PT 40.4 H (10.0-12.5) sec INR 4.1 H (<1.2) APTT 33.6 H (22.0-30.0) sec Sodium (137-145) mmol/L Potassium (3.5-5.1) mmol/L Chloride (98-107) mmol/L Carbon Dioxide (22-30) mmol/L Anion Gap mmol/L BUN (9-20) mg/dL Creatinine (0.66-1.25) mg/dL Est GFR (CKD-EPI)AfAm (>60 ml/min/1.73 sqM) Est GFR (CKD-EPI)NonAf (>60 ml/min/1.73 sqM) Glucose (74-99) mg/dL Plasma Lactic Acid Ford (0.7-2.0) mmol/L Calcium (8.4-10.2) mg/dL Total Bilirubin (0.2-1.3) mg/dL AST (17-59) U/L ALT (4-49) U/L Alkaline Phosphatase (38-126) U/L Total Protein (6.3-8.2) g/dL Albumin (3.5-5.0) g/dL Amylase (30-110) U/L Lipase (23-300) U/L Urine Color Colorless Urine Appearance Clear (Clear) Urine pH 6.5 (5.0-8.0) Ur Specific [place] >1.050 H (1.001-1.035) Urine Protein Trace H (Negative) Urine Glucose (UA) Negative (Negative) Urine Ketones 1+ H (Negative) Urine Blood Negative (Negative) Urine Nitrite Negative (Negative) Urine Bilirubin Negative (Negative) Urine Urobilinogen <2.0 (<2.0) mg/dL Ur Leukocyte Esterase Negative (Negative) - Radiology Data Radiology results: report reviewed, image reviewed Disposition Clinical Impression: Bowel obstruction Disposition: ADMITTED IP TO THIS HOSP Condition: Stable Referrals: Brant Potts MD [REFERRING] - 1-2 days Time of Disposition: 12:36
[2024-10-12] MEDS: SODIUM CHLORIDE 0.9% 1,000 ML IV ONE (10:42)
[2024-10-12 10:56] LABS: Basophils # (A) 0.04 10*3/uL (0.00-0.10); Basophils % (A) 0.4 %; Eosinophils # (A) 0.14 10*3/uL (0.04-0.35); Eosinophils % (A) 1.3 %; HCT 40.6 % (39.6-50.0); HGB 13.4 g/dL (13.0-17.0); Lymphocytes # (A) 1.18 10*3/uL (0.90-5.00); Lymphocytes % (A) 11.1 %; MCH 27.8 pg (27.0-32.0); MCHC 33.0 g/dL (32.0-37.0); MCV 84.2 fL (80.0-97.0); Monocytes # (A) 1.37 10*3/uL (0.20-1.00); Monocytes % (A) 12.9 %; Neutrophils # (A) 7.84 10*3/uL (1.80-7.70); Neutrophils % (A) 74.0 %; Platelet Count 311 10*3/uL (140-440); RBC 4.82 10*6/uL (4.40-5.60); RDW 16.0 % (11.5-14.5); WBC 10.60 10*3/uL (4.50-10.00)
[2024-10-12 11:07] LABS: INR 4.1 (<1.2); Partial Thromboplastin Time 33.6 sec (22.0-30.0); Prothrombin Time 40.4 sec (10.0-12.5)
[2024-10-12 11:10] LABS: ALT 11 U/L (4-49); AST 19 U/L (17-59); African American GFR (CKD) >90 (>60 ml/min/1.73 sqM); Albumin 4.7 g/dL (3.5-5.0); Alkaline Phosphatase 91 U/L (38-126); Amylase 51 U/L (30-110); Anion Gap 11 mmol/L; Blood Urea Nitrogen 19 mg/dL (9-20); Calcium 9.7 mg/dL (8.4-10.2); Carbon Dioxide 21 mmol/L (22-30); Chloride 108 mmol/L (98-107); Glucose 125 mg/dL (74-99); Lipase 108 U/L (23-300); Non-African American GFR(CKD) >90 (>60 ml/min/1.73 sqM); Potassium 3.9 mmol/L (3.5-5.1); Sodium 140 mmol/L (137-145); Total Protein 7.4 g/dL (6.3-8.2)
--- NOTE | 2024-10-12 11:42 | CT ---
EXAMINATION TYPE: CT abdomen pelvis w con DATE OF EXAM: 10/12/2024 11:11 AM COMPARISON: None. CLINICAL INDICATION: Male, 64 years old with history of lower abd pain, lower abd pain TECHNIQUE: Axial images were obtained from above the diaphragm to the pubic rami in the axial plane a t 5 mm thick sections. Reconstructed images are reviewed on the computer in the coronal plane. CONTRAST: 100 mL of Isovue 300. Study performed without Oral Contrast DLP: 613.8 mGycm, Automated exposure control for dose reduction was used. FINDINGS: Limited CT sections are obtained the lung bases. The lung bases are clear. CT ABDOMEN: There is a 1.3 cm opening with a periumbilical fat-containing hernia. No loops of bowel a re involved. Liver: Normal Spleen: Normal Pancreas: Atrophic Adrenal glands: The adrenal glands are normal. Gallbladder: Tiny gallstones are present. Kidneys: No masses are evident. No hydronephrosis is present. Superior pole left renal peripelvic c yst is present. Delayed images were obtained through the kidneys, which remain unremarkable. Aorta: Vascular calcification is within the aorta. Inferior vena cava: Normal. CT PELVIS: Colon is dilated with air. Air-fluid levels are present. Mild fecal debris is within the colon. The sigmoid colon is thickened. Correlate for underlying mass in the mid to distal sigmoid colon. The jose cending colon is diffusely thickened wall which may be related to some colitis. There are some air-fi lled prominent small bowel loops. Appendix: Not identified. No dilated tubular structure or inflammatory change is evident. Urinary bladder: Normal. Genitourinary structures: Prostate is prominent. Osseous structures: No suspicious lytic or sclerotic lesions. IMPRESSION: 1. Thickened distal sigmoid colon. The proximal sigmoid colon and descending colon has thickened wal l. There is dilated loops of colon and prominent loops of small bowel filled with air. Scattered air- fluid levels are present. Correlate for distal colonic stenosis or obstruction. Underlying neoplasm s hould be considered. Report was called to the emergency room by Dr. Macdonald by telephone at the time of interpretation. 2. Cholelithiasis. 3. Periumbilical fat-containing hernia. [facility], , 10/12/2024 11:40 AM
[2024-10-12 11:48] LABS: Bilirubin,Urine Negative (Negative); Blood,Urine Negative (Negative); Color,Urine Colorless; Glucose,Urine (UA) Negative (Negative); Ketones,Urine 1+ (Negative); Leukocyte Esterase,Urine Negative (Negative); Nitrite,Urine Negative (Negative); PH, Urine 6.5 (5.0-8.0); Protein,Urine Trace (Negative); Urobilinogen,Urine <2.0 mg/dL (<2.0)
[2024-10-12 11:51] LABS: Specific Gravity,Urine >1.050 (1.001-1.035)
[2024-10-12] MEDS: LIDOCAINE VISCOUS 2% 15 ML CUP MUCOUS MEM STA (12:28)
[2024-10-12] MEDS: KETOROLAC 15 MG/ML 1 ML VIAL IVP STA (12:32)
[2024-10-12] MEDS ORDERED: NALOXONE 0.4 MG/ML 1 ML VIAL IV PRN (12:33)
[2024-10-12] MEDS: HYDROmorphone 0.5 MG/0.5 ML SYRINGE IVP STA (12:34)
--- NOTE | 2024-10-12 13:00 | XR ---
EXAMINATION TYPE: XR chest 1V confirm line plcmt DATE OF EXAM: 10/12/2024 12:51 PM COMPARISON: 09/13/2023 CLINICAL INDICATION: Male, 64 years old with history of NG tube placement, TECHNIQUE: XR chest 1V confirm line plcmt view(s) obtained. FINDINGS: The heart size is normal. The pulmonary vasculature is normal. The lungs are clear. There is elevation left diaphragm. Dilated prominent air-filled loops of bowel are noted within the left diaphragm There is placement of a nasogastric tube. This extends to the distal thoracic region and curled back with the tip located near the thoracic inlet. This is approximately 16 cm of looped duplication. Shou ld be pulled back and repositioned. IMPRESSION: 1. Nasogastric tube curled within the thoracic esophagus with the tip located near the thoracic inlet . Repositioning recommended. A [place] level critical message alert has been initiated for Angela Gonzalez MD via the [employer] Critical Results System on 10/12/2024 12:57 PM. This message alert has been sent to Angela Gonzalez MD via the preferences provided by the clinician for the receipt of Radiology Critical Findings. [employer] e ID [id number]. [facility], , 10/12/2024 12:58 PM
--- NOTE | 2024-10-12 13:49 | XR ---
EXAMINATION TYPE: XR chest 1V confirm line plcmt DATE OF EXAM: 10/12/2024 1:42 PM COMPARISON: 10/12/2024 earlier exam CLINICAL INDICATION: Male, 64 years old with history of NG tube placement, TECHNIQUE: XR chest 1V confirm line plcmt view(s) obtained. FINDINGS: The heart size is normal. The pulmonary vasculature is normal. The lungs are clear. Nasogastric tube has been repositioned. Tip is currently within the left upper quadrant of the abdome n. Multiple dilated air-filled loops of bowel are present within the upper abdomen IMPRESSION: 1. No acute pulmonary process. 2. Endotracheal tube tip in good position in the left upper quadrant of abdomen [facility], , 10/12/2024 1:47 PM
[2024-10-12] MEDS: SODIUM CHLORIDE 0.9% 1,000 ML IV SCH (14:20)
[2024-10-12] MEDS: PIPERACILLIN-TAZOBACTAM 3.375 GM in SODIUM CHLORIDE 0.9% 100 ML IVPB ONE (14:22)
--- NOTE | 2024-10-12 14:35 | P.GSHP ---
History of Present Illness H&P Date: 10/12/24 CHIEF COMPLAINT: Abdominal pain HISTORY OF PRESENT ILLNESS: This is a 64-year-old male with a known prior history of diverticulitis with abscess, and history of large colon polyp that was removed in February 2024 at [facility]. Patient reports that he has not been feeling well for about a week and a half. He has been having lower abdominal pain with vomiting. He reports that the vomiting had been intermittent. And that the pain would come in waves. There were moments when he felt better and he was able to eat some softer foods and tolerate. But then he would have the pain and vomiting return. He reports that he has been having loose bowel movements. His last bowel was this morning. He reports no blood in the stool or emesis. Patient had CT scan abdomen and pelvis completed that reported thickened distal sigmoid colon. The proximal sigmoid colon ascending colon has thickened wall. There is dilated loops of colon and prominent loops of small bowel filled with air. Scattered air-fluid levels are present. Correlate for distal colonic stenosis or obstruction. Underlying neoplasm should be considered. Cholelithiasis. Periumbilical fat-containing hernia noted. Patient reports the umbilical hernia has been present for several years with no change. Patient has NG tube placed. Also note that he takes Coumadin and for A-fib and INR is elevated at 4.1. PAST MEDICAL HISTORY: See below PAST SURGICAL HISTORY: See below MEDICATIONS: See below ALLERGIES: See below SOCIAL HISTORY: No illicit drug use. REVIEW OF SYSTEMS: CONSTITUTIONAL: Denies fever or chills. HEENT: Denies blurred vision, vision changes, or eye pain. Denies hemoptysis CARDIOVASCULAR: Denies chest pain or pressure. RESPIRATORY: No shortness of breath. GASTROINTESTINAL: See HPI for pertinent findings HEMATOLOGIC: Denies bleeding disorders. GENITOURINARY: Denies any blood in urine or increased urinary frequency. SKIN: Denies pruitis. Denies rash. PHYSICAL EXAM: VITAL SIGNS: Reviewed GENERAL: Well-developed in no acute distress. HEENT: No sclera icterus. Extraocular movements grossly intact. Moist buccal mucosa. Head is atraumatic, normocephalic. No nasal drainage. ABDOMEN: Mildly distended. Mild tenderness with palpation of lower abdomen. Periumbilical hernia present. NEUROLOGIC: Alert and oriented. Cranial nerves II through XII grossly intact. LABORATORY DATA: WBC 10.6 Hgb 13.4 platelets 311 INR 4.1 Sodium 140 potassium 3.9 creatinine 0.56 Lactic acid 1.1 LFTs normal IMAGING: CT scan abdomen pelvis reports thickened distal sigmoid colon. The proximal sigmoid colon descending colon has thickened wall. There is dilated loops of colon and prominent loops of small bowel filled with air. Scattered air-fluid levels are present. Correlate for distal colonic stenosis or obstruction. Underlying neoplasm should be considered. Cholelithiasis. Periumbilical fat- containing hernia. ASSESSMENT: 1. Acute diverticulitis with partial bowel obstruction. CT reporting thickened distal sigmoid colon. Proximal sigmoid colon and descending colon has thickened wall. There is dilated loops of colon and prominent loops of small bowel filled with air. Scattered air-fluid levels are present. Correlate for distal colonic stenosis or obstruction. PLAN: - Continue NG tube for decompression - Keep patient n.p.o. - Continue IV fluids - Continue antibiotics - Check abdominal x-ray in a.m. - Hold Coumadin - Repeat labs in a.m. - Obtain procedure/surgery records from [facility] in February 2024 - Consult medicine dasha for medical management Physician Dietitian Therapeutic note has been reviewed by physician. Signing provider agrees with the documented findings, assessment, and plan of care. I have personally seen and examined the patient, reviewed the VOLUNTEER ASSISTANT /PAs history, exam and MDM and agree with the assessment and plan as written. Based on total visit time, I have performed more than 50% of the visit. As above: Patient with partial colonic obstruction that appears to be related to recurrent sigmoid diverticulitis. Continue antibiotics. Hold anticoagulation. Repeat abdominal x-rays tomorrow. Will review today's x-ray regarding gastric tube placement. Past Medical History Past Medical History: Atrial Fibrillation, Hypertension Additional Past Medical History / Comment(s): Dry AMD History of Any Multi-Drug Resistant Organisms: None Reported Past Surgical History: No Surgical Hx Reported Past Psychological History: No Psychological Hx Reported Smoking Status: Former smoker Past Alcohol Use History: None Reported Past Drug Use History: Marijuana Medications and Allergies Home Medications Medication Instructions Recorded Confirmed Type Cholecalciferol [Vitamin D3 (25 50 mcg PO DAILY 09/13/23 10/12/24 History Mcg = 1000 Iu)] Magnesium Citrate and Oxide 250 mg PO DAILY 09/13/23 10/12/24 History [Magnesium] Metoprolol Tartrate [Lopressor] 25 mg PO BID@0800,199909/13/23 10/12/24 History Vit C/E/Zn/Coppr/Lutein/Zeaxan 1 cap PO BID@799,199910/12/24 10/12/24 History [Preservision Areds 2 Softgel] Warfarin [Coumadin] 10 mg PO DAILY@1800 10/12/24 10/12/24 History Allergies Allergy/AdvReac Type Severity Reaction Status Date / Time No Known Allergies Allergy Verified 10/12/24 14:19 Surgical - Exam Vital Signs Temp Pulse Resp BP Pulse Ox 62 F L 62 18 133/85 98 10/12/24 09:49 10/12/24 09:49 10/12/24 09:49 10/12/24 09:49 10/12/24 09:49 Results - Labs 10/12/24 10:36 10/12/24 10:36 Abnormal Lab Results - Last 24 Hours (Table) 10/12/24 10/12/24 10/12/24 Range/Units 10:36 10:36 10:39 WBC 10.60 H (4.50-10.00) 10*3/uL Neutrophils # 7.84 H (1.80-7.70) 10*3/uL Monocytes # 1.37 H (0.20-1.00) 10*3/uL PT 40.4 H (10.0-12.5) sec INR 4.1 H (<1.2) APTT 33.6 H (22.0-30.0) sec Chloride 108 H (98-107) mmol/L Carbon Dioxide 21 L (22-30) mmol/L Creatinine 0.56 L (0.66-1.25) mg/dL Glucose 125 H (74-99) mg/dL Ur Specific [place] (1.001-1.035) Urine Protein (Negative) Urine Ketones (Negative) 10/12/24 Range/Units 11:25 WBC (4.50-10.00) 10*3/uL Neutrophils # (1.80-7.70) 10*3/uL Monocytes # (0.20-1.00) 10*3/uL PT (10.0-12.5) sec INR (<1.2) APTT (22.0-30.0) sec Chloride (98-107) mmol/L Carbon Dioxide (22-30) mmol/L Creatinine (0.66-1.25) mg/dL Glucose (74-99) mg/dL Ur Specific [place] >1.050 H (1.001-1.035) Urine Protein Trace H (Negative) Urine Ketones 1+ H (Negative) Diabetes panel 10/12/24 Range/Units 10:36 Sodium 140 (137-145) mmol/L Potassium 3.9 (3.5-5.1) mmol/L Chloride 108 H (98-107) mmol/L Carbon Dioxide 21 L (22-30) mmol/L BUN 19 (9-20) mg/dL Creatinine 0.56 L (0.66-1.25) mg/dL Glucose 125 H (74-99) mg/dL Calcium 9.7 (8.4-10.2) mg/dL AST 19 (17-59) U/L ALT 11 (4-49) U/L Alkaline Phosphatase 91 (38-126) U/L Total Protein 7.4 (6.3-8.2) g/dL Albumin 4.7 (3.5-5.0) g/dL Calcium panel 10/12/24 Range/Units 10:36 Calcium 9.7 (8.4-10.2) mg/dL Albumin 4.7 (3.5-5.0) g/dL Pituitary panel 10/12/24 Range/Units 10:36 Sodium 140 (137-145) mmol/L Potassium 3.9 (3.5-5.1) mmol/L Chloride 108 H (98-107) mmol/L Carbon Dioxide 21 L (22-30) mmol/L BUN 19 (9-20) mg/dL Creatinine 0.56 L (0.66-1.25) mg/dL Glucose 125 H (74-99) mg/dL Calcium 9.7 (8.4-10.2) mg/dL Adrenal panel 10/12/24 Range/Units 10:36 Sodium 140 (137-145) mmol/L Potassium 3.9 (3.5-5.1) mmol/L Chloride 108 H (98-107) mmol/L Carbon Dioxide 21 L (22-30) mmol/L BUN 19 (9-20) mg/dL Creatinine 0.56 L (0.66-1.25) mg/dL Glucose 125 H (74-99) mg/dL Calcium 9.7 (8.4-10.2) mg/dL Total Bilirubin 0.5 (0.2-1.3) mg/dL AST 19 (17-59) U/L ALT 11 (4-49) U/L Alkaline Phosphatase 91 (38-126) U/L Total Protein 7.4 (6.3-8.2) g/dL Albumin 4.7 (3.5-5.0) g/dL
--- NOTE | 2024-10-12 16:04 | P.CONS ---
History of Present Illness - Reason for Consult Consult date: 10/12/24 bowel obstruction Requesting physician: Dayana Buchanan - History of Present Illness This is a 64 year old with medical history significant for atrial fibrillation, hypertension. Patient comes into the hospital with complaints of 1 week of abdominal pain thought initially it was a stomach bug was having multiple episodes of nausea and vomiting. He was having frequent stools but denied diarrhea. He was also passing gas and belching frequently. Does have a history of diverticulitis with abscess formation and follows a Dr. Chavez on an outpatient basis. Patient had a colonoscopy back in February 2024 and has not got results yet from [facility]. His initial blood work reveals a blood cell c ount 10.60, INR 4.1, BUN of 19 creatinine 0.56, sodium 140, potassium 3.9. Urinalysis is not suggestive of infection. Abdominal pelvis CT does reveal a thickened distal sigmoid colon the proximal sigmoid colon and descending colon is thickened wall. There is dilated loops of colon and prominent loops of small bowel filled with air. Scattered air-fluid filled levels are present. Correlate for distal colonic stenosis or obstruction. Underlying neoplasm should be considered. Cholelithiasis. A periumbilical fat-containing hernia. Patient was admitted to the hospital under general surgery for the possible partial bowel obstruction. NG tube was placed for decompression. Patient will remain n.p.o. and continue with IV fluids. Warfarin has been placed on hold at this time. Medical reports have been requested from [facility] for and currently pending at this time. REVIEW OF SYSTEMS: CONSTITUTIONAL: No fever, no malaise, no fatigue. HEENT: No recent visual problems or hearing problems. Denied any sore throat. CARDIOVASCULAR: No chest pain, orthopnea, PND, no palpitations, no syncope. PULMONARY: No shortness of breath, no cough, no hemoptysis. GASTROINTESTINAL: No diarrhea, Reports nausea vomiting and abdominal pain NEUROLOGICAL: No headaches, no weakness, no numbness. HEMATOLOGICAL: Denies any bleeding or petechiae. GENITOURINARY: Denies any burning micturition, frequency, or urgency. MUSCULOSKELETAL/RHEUMATOLOGICAL: Denies any joint pain, swelling, or any muscle pain. ENDOCRINE: Denies any polyuria or polydipsia. The rest of the 14-point review of systems is negative. PHYSICAL EXAMINATION: GENERAL: The patient is alert and oriented x3, not in any acute distress. Well developed, well nourished. HEENT: Pupils are round and equally reacting to light. EOMI. No scleral icterus. No conjunctival pallor. Normocephalic, atraumatic. No pharyngeal erythema. No th yromegaly. CARDIOVASCULAR: S1 and S2 present. No murmurs, rubs, or gallops. PULMONARY: Chest is clear to auscultation, no wheezing or crackles. ABDOMEN: Soft, nontender, nondistended, normoactive bowel sounds. No palpable organomegaly. MUSCULOSKELETAL: No joint swelling or deformity. EXTREMITIES: No cyanosis, clubbing, or pedal edema. NEUROLOGICAL: Gross neurological examination did not reveal any focal deficits. SKIN: No rashes Assessment Abdominal pain because of a colonic obstruction related to recurrent sigmoid diverticulitis Leukocytosis History of atrial fibrillation paroxysmal anticoag with warfarin Hypertension GI prophylaxis Full code Plan Hold warfarin at this time INR 4.1 will repeat in the morning Normal saline will continue at 75 mL/h Continue NG tube for decompression Continue IV Zosyn Resume home Lopressor 25 mg twice daily Monitor electrolytes and renal function The impression and plan of care has been dictated by Arlen Dyer Nurse Practitioner as directed. Dr. Dave MD I have performed a history and physical examination and medical decision making of this patient, discussed the same with the dictator, and agree with the dictators assessment and plan as written, documented as a scribe. Based on total visit time, I have performed more than 50% of this visit. Past Medical History Past Medical History: Atrial Fibrillation, Hypertension Additional Past Medical History / Comment(s): Dry AMD History of Any Multi-Drug Resistant Organisms: None Reported Past Surgical History: No Surgical Hx Reported Past Psychological History: No Psychological Hx Reported Smoking Status: Former smoker Past Alcohol Use History: None Reported Past Drug Use History: Marijuana Medications and Allergies Home Medications Medication Instructions Recorded Confirmed Type Cholecalciferol [Vitamin D3 (25 50 mcg PO DAILY 09/13/23 10/12/24 History Mcg = 1000 Iu)] Magnesium Citrate and Oxide 250 mg PO DAILY 09/13/23 10/12/24 History [Magnesium] Metoprolol Tartrate [Lopressor] 25 mg PO BID@0800,199909/13/23 10/12/24 History Vit C/E/Zn/Coppr/Lutein/Zeaxan 1 cap PO BID@0800,199910/12/24 10/12/24 History [Preservision Areds 2 Softgel] Warfarin [Coumadin] 10 mg PO DAILY@1800 10/12/24 10/12/24 History Allergies Allergy/AdvReac Type Severity Reaction Status Date / Time No Known Allergies Allergy Verified 10/12/24 14:19 Physical Exam Vitals: Vital Signs Temp Pulse Resp BP Pulse Ox 10/12/24 14:00 68 20 132/96 98 10/12/24 12:35 62 20 151/88 96 10/12/24 11:23 98.1 F 55 L 20 155/88 99 10/12/24 10:17 98.4 F 10/12/24 09:49 62 F L 62 18 133/85 98 Intake and Output 10/12/24 10/12/24 10/12/24 06:59 14:59 22:59 Other: Weight 63.503 kg Results CBC & Chem 7: 10/12/24 10:36 10/12/24 10:36 Labs: Abnormal Lab Results - Last 24 Hours (Table) 10/12/24 10/12/24 10/12/24 Range/Units 10:36 10:36 10:39 WBC 10.60 H (4.50-10.00) 10*3/uL Neutrophils # 7.84 H (1.80-7.70) 10*3/uL Monocytes # 1.37 H (0.20-1.00) 10*3/uL PT 40.4 H (10.0-12.5) sec INR 4.1 H (<1.2) APTT 33.6 H (22.0-30.0) sec Chloride 108 H (98-107) mmol/L Carbon Dioxide 21 L (22-30) mmol/L Creatinine 0.56 L (0.66-1.25) mg/dL Glucose 125 H (74-99) mg/dL Ur Specific [place] (1.001-1.035) Urine Protein (Negative) Urine Ketones (Negative) 10/12/24 Range/Units 11:25 WBC (4.50-10.00) 10*3/uL Neutrophils # (1.80-7.70) 10*3/uL Monocytes # (0.20-1.00) 10*3/uL PT (10.0-12.5) sec INR (<1.2) APTT (22.0-30.0) sec Chloride (98-107) mmol/L Carbon Dioxide (22-30) mmol/L Creatinine (0.66-1.25) mg/dL Glucose (74-99) mg/dL Ur Specific [place] >1.050 H (1.001-1.035) Urine Protein Trace H (Negative) Urine Ketones 1+ H (Negative) Assessment and Plan Time with Patient: Less than 30
[2024-10-12] MEDS: METOPROLOL TARTRATE 25 MG TAB PO SCH (20:21)
[2024-10-12] MEDS: PIPERACILLIN-TAZOBACTAM 3.375 GM in SODIUM CHLORIDE 0.9% 100 ML IVPB SCH (21:08)
[2024-10-13 05:28] LABS: Basophils # (A) 0.03 10*3/uL (0.00-0.10); Basophils % (A) 0.3 %; Eosinophils # (A) 0.17 10*3/uL (0.04-0.35); Eosinophils % (A) 1.8 %; HCT 37.8 % (39.6-50.0); HGB 12.2 g/dL (13.0-17.0); Lymphocytes # (A) 0.71 10*3/uL (0.90-5.00); Lymphocytes % (A) 7.4 %; MCH 27.7 pg (27.0-32.0); MCHC 32.3 g/dL (32.0-37.0); MCV 85.9 fL (80.0-97.0); Monocytes # (A) 1.07 10*3/uL (0.20-1.00); Monocytes % (A) 11.2 %; Neutrophils # (A) 7.57 10*3/uL (1.80-7.70); Neutrophils % (A) 79.0 %; Platelet Count 287 10*3/uL (140-440); RBC 4.40 10*6/uL (4.40-5.60); RDW 16.0 % (11.5-14.5); WBC 9.58 10*3/uL (4.50-10.00)
[2024-10-13 05:55] LABS: African American GFR (CKD) >90 (>60 ml/min/1.73 sqM); Anion Gap 14 mmol/L; Blood Urea Nitrogen 19 mg/dL (9-20); Calcium 9.6 mg/dL (8.4-10.2); Carbon Dioxide 22 mmol/L (22-30); Chloride 105 mmol/L (98-107); Glucose 89 mg/dL (74-99); Non-African American GFR(CKD) >90 (>60 ml/min/1.73 sqM); Potassium 4.0 mmol/L (3.5-5.1); Sodium 141 mmol/L (137-145)
[2024-10-13 06:18] LABS: INR 4.7 (<1.2); Prothrombin Time 46.6 sec (10.0-12.5)
--- NOTE | 2024-10-13 08:04 | XR ---
EXAMINATION TYPE: XR abdomen 2V DATE OF EXAM: 10/13/2024 7:37 AM COMPARISON: CT 10/12/2024 CLINICAL INDICATION: Male, 64 years old with history of abdominal pain, follow up bowel obstruction, TECHNIQUE: XR abdomen 2V view(s) obtained. FINDINGS: Multiple dilated air-filled small bowel loops are present extending into the pelvis. A small bowel ob struction is likely present. Air is present within the colon which appears nondilated. Psoas margins are normal. No organomegaly is present. IMPRESSION: 1. Dilated air-filled small bowel loops extending into the pelvis compatible small bowel obstruction. This may be partial with more normal-appearing colonic bowel gas. 2. Previous suspected distal colonic obstruction is not identified on this exam. [facility], , 10/13/2024 8:02 AM A [place] level critical message alert has been initiated for Stoney Chavez MD via the [employer] Critical Results System on 10/13/2024 8:01 AM. This message alert has been sent to Stoney Chavez MD via the preferences provided by the clinician for the receipt of Radiology Critical Findings. Message ID [id number].
[2024-10-13] MEDS: HYDROmorphone 0.5 MG/0.5 ML SYRINGE IVP PRN (08:34)
--- NOTE | 2024-10-13 11:48 | P.PN ---
Subjective Progress Note Date: 10/13/24 SURGICAL PROGRESS NOTE CHIEF COMPLAINT: Abdominal pain HISTORY OF PRESENT ILLNESS: Patient is sitting at bedside chair. Patient reports his pain is improved. He had taken pain medicine this morning for his sore throat and back pain. He is having flatus. NG tube with 475 mL darkish output. Abdominal x-ray for this morning reported dilated air-filled small bowel loops extending into the pelvis compatible small bowel obstruction. This may be partial with more normal-appearing colonic bowel gas. Previous suspected distal colonic obstruction is not identified. WBC 9.58 INR 4.7 PHYSICAL EXAM: VITAL SIGNS: Reviewed. GENERAL: Well-developed in no acute distress. ABDOMEN: Soft. Nondistended. Nontender. Periumbilical hernia noted NEUROLOGIC: Alert and oriented. Cranial nerves II through XII grossly intact. ASSESSMENT: 1. Partial colonic obstruction that appears to be related to recurrent sigmoid diverticulitis 2. Partial small bowel obstruction PLAN: - Continue NG tube for decompression until seen by surgeon - Keep patient n.p.o. - Continue IV fluids - Continue antibiotics - Continue to hold Coumadin - Add IV Protonix NG tube output dark may be slightly blood-tinged. Physician Commercial Journeyman Electrician note has been reviewed by physician. Signing provider agrees with the documented findings, assessment, and plan of care. I have personally seen and examined the patient, reviewed the SOFTWARE QUALITY SPECIALIST /PAs history, exam and MDM and agree with the assessment and plan as written. Based on total visit time, I have performed more than 50% of the visit. As above: Patient did pass stool again this morning. Says he is also passing flatus. Denies pain. Gastric output mild to moderate. Repeat abdominal x-rays show more dilated small bowel loops. Will repeat abdominal films tomorrow. Continue bowel rest and gastric decompression. Continue antibiotics. Recheck labs in AM. Objective - Vital Signs Vital signs: Vital Signs Temp 98.1 F 10/13/24 07:47 Pulse 60 10/13/24 07:47 Resp 16 10/13/24 07:47 BP 145/80 10/13/24 07:47 Pulse Ox 97 10/13/24 07:47 FiO2 Intake & Output 10/12/24 10/13/24 10/13/24 18:59 06:59 18:59 Intake Total 1000 Output Total 475 Balance 525 Weight 63.503 kg 63.503 kg Intake: Intake, IV Titration 1000 Amount Piperacillin-Tazobactam 3 100 .375 gm In Sodium Chloride 0.9% 100 ml @ 25 mls/hr IVPB Q8H [facility] Rx#: [id number] Sodium Chloride 0.9% 1, 900 000 ml @ 75 mls/hr IV . [id number] [facility] Rx#:[id number] Output: Gastric Drainage 475 Other: # Voids 3 - Labs CBC & Chem 7: 10/13/24 04:50 10/13/24 04:50 Labs: Abnormal Lab Results - Last 24 Hours (Table) 10/12/24 10/13/24 10/13/24 Range/Units 11:25 04:50 04:50 Hgb 12.2 L (13.0-17.0) g/dL Hct 37.8 L (39.6-50.0) % RDW 16.0 H (11.5-14.5) % Lymphocytes # 0.71 L (0.90-5.00) 10*3/uL Monocytes # 1.07 H (0.20-1.00) 10*3/uL PT (10.0-12.5) sec INR (<1.2) Creatinine 0.53 L (0.66-1.25) mg/dL Ur Specific [place] >1.050 H (1.001-1.035) Urine Protein Trace H (Negative) Urine Ketones 1+ H (Negative) 10/13/24 Range/Units 04:50 Hgb (13.0-17.0) g/dL Hct (39.6-50.0) % RDW (11.5-14.5) % Lymphocytes # (0.90-5.00) 10*3/uL Monocytes # (0.20-1.00) 10*3/uL PT 46.6 H (10.0-12.5) sec INR 4.7 H (<1.2) Creatinine (0.66-1.25) mg/dL Ur Specific [place] (1.001-1.035) Urine Protein (Negative) Urine Ketones (Negative)
[2024-10-13] MEDS: PANTOPRAZOLE 40 MG/10 ML VIAL IVP SCH (13:19)
[2024-10-13 14:03] VITALS: BMI 21.2
[2024-10-13] MEDS: D5-0.45% NACL WITH KCL 20MEQ/L 1,000 ML IV SCH (18:00)
--- NOTE | 2024-10-13 23:19 | P.PN ---
Subjective Progress Note Date: 10/13/24 This is a 64 year old with medical history significant for atrial fibrillation, hypertension. Patient comes into the hospital with complaints of 1 week of abdominal pain thought initially it was a stomach bug was having multiple episodes of nausea and vomiting. He was having frequent stools but denied di arrhea. He was also passing gas and belching frequently. Does have a history of diverticulitis with abscess formation and follows a Dr. Chavez on an outpatient basis. Patient had a colonoscopy back in February 2024 and has not got results yet from [facility]. His initial blood work reveals a blood cell count 10.60, INR 4.1, BUN of 19 creatinine 0.56, sodium 140, potassium 3.9. Urinalysis is not suggestive of infection. Abdominal pelvis CT does reveal a thickened distal sigmoid colon the proximal sigmoid colon and descending colon is thickened wall. There is dilated loops of colon and prominent loops of small bowel filled with air. Scattered air-fluid filled levels are present. Correl ate for distal colonic stenosis or obstruction. Underlying neoplasm should be considered. Cholelithiasis. A periumbilical fat-containing hernia. Patient was admitted to the hospital under general surgery for the possible partial bowel obstruction. NG tube was placed for decompression. Patient will remain n.p.o. and continue with IV fluids. Warfarin has been placed on hold at this time. Medical reports have been requested from [facility] for and currently pending at this time. 10/13/2024 Patient remains in the medical floor NG tube in place. His repeat abdominal x- ray reveals dilated air-filled small bowel loops extending into the pelvis compatible with small bowel obstruction. This may be partial with more normal- appearing colonic bowel gas. His abdomen is less tender and does have increased bowel sounds today. He is feeling better. No BM yet. REVIEW OF SYSTEMS: CONSTITUTIONAL: No fever, no malaise, no fatigue. HEENT: No recent visual problems or hearing problems. Denied any sore throat. CARDIOVASCULAR: No chest pain, orthopnea, PND, no palpitations, no syncope. PULMONARY: No shortness of breath, no cough, no hemoptysis. GASTROINTESTINAL: No diarrhea, Reports nausea vomiting and abdominal pain NEUROLOGICAL: No headaches, no weakness, no numbness. PHYSICAL EXAMINATION: GENERAL: The patient is alert and oriented x3, not in any acute distress. Well developed, well nourished. HEENT: Pupils are round and equally reacting to light. EOMI. No scleral icterus. No conjunctival pallor. Normocephalic, atraumatic. No pharyngeal erythema. No thyromegaly. CARDIOVASCULAR: S1 and S2 present. No murmurs, rubs, or gallops. PULMONARY: Chest is clear to auscultation, no wheezing or crackles. ABDOMEN: Soft, nontender, nondistended, normoactive bowel sounds. No palpable o rganomegaly. MUSCULOSKELETAL: No joint swelling or deformity. EXTREMITIES: No cyanosis, clubbing, or pedal edema. NEUROLOGICAL: Gross neurological examination did not reveal any focal deficits. SKIN: No rashes Assessment Abdominal pain because of a colonic obstruction related to recurrent sigmoid diverticulitis Leukocytosis History of atrial fibrillation paroxysmal anticoag with warfarin Hypertension GI prophylaxis Full code Plan Scheduled for exploratory laporatomy on 10/16/2024 with possible bowel resection and ostomy formation. Hold warfarin at this time INR 4.7 will repeat in the morning Continue D5 1/2 normal saline Continue NG tube for decompression Continue IV Zosyn Resume home Lopressor 25 mg twice daily Monitor electrolytes and renal function The impression and plan of care has been dictated by Arlen Dyer Nurse Practitioner as directed. Dr. Dave MD I have performed a history and physical examination and medical decision making of this patient, discussed the same with the dictator, and agree with the dictators assessment and plan as written, documented as a scribe. Based on total visit time, I have performed more than 50% of this visit. Objective - Vital Signs Vital signs: Vital Signs Temp 98.1 F 10/13/24 07:47 Pulse 60 10/13/24 07:47 Resp 16 10/13/24 07:47 BP 145/80 10/13/24 07:47 Pulse Ox 97 10/13/24 07:47 FiO2 Intake & Output 10/12/24 10/13/24 10/13/24 18:59 06:59 18:59 Intake Total 1000 Output Total 475 Balance 525 Weight 63.503 kg 63.503 kg Intake: Intake, IV Titration 1000 Amount Piperacillin-Tazobactam 3 100 .375 gm In Sodium Chloride 0.9% 100 ml @ 25 mls/hr IVPB Q8H [facility] Rx#: [id number] Sodium Chloride 0.9% 1, 900 000 ml @ 75 mls/hr IV . [id number] [facility] Rx#:[id number] Output: Gastric Drainage 475 Other: # Voids 3 - Labs CBC & Chem 7: 10/13/24 04:50 10/13/24 04:50 Labs: Abnormal Lab Results - Last 24 Hours (Table) 10/12/24 10/12/24 10/12/24 Range/Units 10:36 10:36 10:39 WBC 10.60 H (4.50-10.00) 10*3/uL Hgb (13.0-17.0) g/dL Hct (39.6-50.0) % RDW (11.5-14.5) % Neutrophils # 7.84 H (1.80-7.70) 10*3/uL Lymphocytes # (0.90-5.00) 10*3/uL Monocytes # 1.37 H (0.20-1.00) 10*3/uL PT 40.4 H (10.0-12.5) sec INR 4.1 H (<1.2) APTT 33.6 H (22.0-30.0) sec Chloride 108 H (98-107) mmol/L Carbon Dioxide 21 L (22-30) mmol/L Creatinine 0.56 L (0.66-1.25) mg/dL Glucose 125 H (74-99) mg/dL Ur Specific Marina (1.001-1.035) Urine Protein (Negative) Urine Ketones (Negative) 10/12/24 10/13/24 10/13/24 Range/Units 11:25 04:50 04:50 WBC (4.50-10.00) 10*3/uL Hgb 12.2 L (13.0-17.0) g/dL Hct 37.8 L (39.6-50.0) % RDW 16.0 H (11.5-14.5) % Neutrophils # (1.80-7.70) 10*3/uL Lymphocytes # 0.71 L (0.90-5.00) 10*3/uL Monocytes # 1.07 H (0.20-1.00) 10*3/uL PT (10.0-12.5) sec INR (<1.2) APTT (22.0-30.0) sec Chloride (98-107) mmol/L Carbon Dioxide (22-30) mmol/L Creatinine 0.53 L (0.66-1.25) mg/dL Glucose (74-99) mg/dL Ur Specific Marina >1.050 H (1.001-1.035) Urine Protein Trace H (Negative) Urine Ketones 1+ H (Negative) 10/13/24 Range/Units 04:50 WBC (4.50-10.00) 10*3/uL Hgb (13.0-17.0) g/dL Hct (39.6-50.0) % RDW (11.5-14.5) % Neutrophils # (1.80-7.70) 10*3/uL Lymphocytes # (0.90-5.00) 10*3/uL Monocytes # (0.20-1.00) 10*3/uL PT 46.6 H (10.0-12.5) sec INR 4.7 H (<1.2) APTT (22.0-30.0) sec Chloride (98-107) mmol/L Carbon Dioxide (22-30) mmol/L Creatinine (0.66-1.25) mg/dL Glucose (74-99) mg/dL Ur Specific Marina (1.001-1.035) Urine Protein (Negative) Urine Ketones (Negative) Assessment and Plan Time with Patient: Less than 30
[2024-10-13] MEDS: HEPARIN SODIUM,PORCINE 5,000 UNIT/ML 1 ML VIAL SQ SCH (23:58)
--- NOTE | 2024-10-14 08:02 | XR ---
EXAMINATION TYPE: XR abdomen 2V DATE OF EXAM: 10/14/2024 7:31 AM COMPARISON: 10/13/2024 CLINICAL INDICATION: Male, 64 years old with history of Follow-up obstruction, TECHNIQUE: XR abdomen 2V view(s) obtained. FINDINGS: There are multiple prominent air-filled filled loops of bowel within the left midabdomen. Some air is present throughout the colon. Differential air-fluid levels are not clearly identified. Couple of ai r-fluid levels may be within left midabdomen. Bowel dilatation has diminished over the interval. Naso gastric tube is been removed. Psoas margins are normal. No organomegaly is present. IMPRESSION: 1. Small bowel loops remain prominent but diminished from comparison. Air is present within the colon . There is some improvement from the comparison. [facility], , 10/14/2024 8:00 AM
[2024-10-14 08:16] LABS: Basophils # (A) 0.03 X 10*3/uL (0.00-0.10); Basophils % (A) 0.3 %; Eosinophils # (A) 0.14 X 10*3/uL (0.04-0.35); Eosinophils % (A) 1.3 %; HCT 37.1 % (39.6-50.0); HGB 11.6 g/dL (13.0-17.0); Immature Grans, Automated 0.30 %; Lymphocytes # (A) 0.83 X 10*3/uL (0.90-5.00); Lymphocytes % (A) 7.9 %; MCH 27.2 pg (27.0-32.0); MCHC 31.3 g/dL (32.0-37.0); MCV 87.1 FL (80.0-97.0); Monocytes # (A) 1.09 X 10*3/uL (0.20-1.00); Monocytes % (A) 10.4 %; NRBC Per 100 WBC 0 X 10*3/uL (0.00-0.01); Neutrophils # (A) 8.38 X 10*3/uL (1.80-7.70); Neutrophils % (A) 79.8 %; Platelet Count 268 X 10*3/uL (140-440); RBC 4.26 X 10*6/uL (4.40-5.60); RDW 16.3 % (11.5-14.5); WBC 10.50 X 10*3/uL (4.50-10.00)
[2024-10-14 08:33] LABS: Anion Gap 12.10 mmol/L (4.00-12.00); BUN/Creat Ratio 24.60 Ratio (12.00-20.00); Blood Urea Nitrogen 12.3 mg/dL (9.0-27.0); Calcium 8.7 mg/dL (8.7-10.3); Carbon Dioxide 21.9 mmol/L (21.6-31.8); Chloride 103 mmol/L (96-109); Glucose 125 mg/dL (70-110); Potassium 4.0 mmol/L (3.5-5.5); Sodium 137 mmol/L (135-145)
--- NOTE | 2024-10-14 11:52 | P.PN ---
Subjective Progress Note Date: 10/14/24 Principal diagnosis: Bowel obstruction Patient says he is doing quite well today. Sitting up in the chair. Has been ambulating. Says he had bowel movements again this morning with a large volume of flatus. No pain. Does not feel the bloating that he came into the hospital with. Abdominal x-rays reviewed and show persistent small bowel and colonic dilation although improved from yesterday. Patient very antsy for diet advancement and discharge. Labs reviewed Objective - Vital Signs Vital signs: Vital Signs Temp 98.1 F 10/14/24 07:07 Pulse 64 10/14/24 07:07 Resp 14 10/14/24 07:07 BP 141/78 10/14/24 07:07 Pulse Ox 98 10/14/24 07:07 FiO2 Intake & Output 10/13/24 10/14/24 10/14/24 18:59 06:59 18:59 Intake Total 1600 Output Total 400 750 Balance -400 850 Weight 63.503 kg Intake: Intake, IV Titration 1600 Amount D5-0.45% NaCl with KCl 1500 20Meq/l 1,000 ml @ 125 mls/hr IV .Q8H [facility] Rx#: [id number] Piperacillin-Tazobactam 3 100 .375 gm In Sodium Chloride 0.9% 100 ml @ 25 mls/hr IVPB Q8H [facility] Rx#: [id number] Output: Gastric Drainage 400 150 Urine 600 Other: # Voids 1 # Bowel Movements 1 - Exam Abdomen: Soft, minimal distention, nontender - Labs CBC & Chem 7: 10/14/24 05:18 10/14/24 05:18 Labs: Abnormal Lab Results - Last 24 Hours (Table) 10/14/24 10/14/24 Range/Units 05:18 05:18 WBC 10.50 H (4.50-10.00) X 10*3/uL RBC 4.26 L (4.40-5.60) X 10*6/uL Hgb 11.6 L (13.0-17.0) g/dL Hct 37.1 L (39.6-50.0) % MCHC 31.3 L (32.0-37.0) g/dL RDW 16.3 H (11.5-14.5) % Neutrophils # 8.38 H (1.80-7.70) X 10*3/uL Lymphocytes # 0.83 L (0.90-5.00) X 10*3/uL Monocytes # 1.09 H (0.20-1.00) X 10*3/uL Anion Gap 12.10 H (4.00-12.00) mmol/L Creatinine 0.5 L (0.6-1.5) mg/dL BUN/Creatinine Ratio 24.60 H (12.00-20.00) Ratio Glucose 125 H (70-110) mg/dL Microbiology - Last 24 Hours (Table) 10/12/24 13:03 Blood Culture - Preliminary Blood Assessment and Plan (1) Bowel obstruction Narrative/Plan: 64-year-old male with suspected exacerbation of sigmoid diverticulitis causing partial colonic obstruction. Clinically improving. Begin clear liquids. Repeat abdominal films tomorrow. Current Visit: Yes Status: Acute Code(s): K56.609 - UNSP INTESTNL OBST, UNSP TO PARTIAL VERSUS COMPLETE OBST SNOMED Code(s): 12131406
[2024-10-14 12:13] LABS: INR 5.84 sec (0.93-1.11); Prothrombin Time 58.4 sec (9.9-11.9)
--- NOTE | 2024-10-14 16:04 | P.PN ---
Subjective Progress Note Date: 10/14/24 This is a 64 year old with medical history significant for atrial fibrillation, hypertension. Patient comes into the hospital with complaints of 1 week of abdominal pain thought initially it was a stomach bug was having multiple episodes of nausea and vomiting. He was having frequent stools but denied di arrhea. He was also passing gas and belching frequently. Does have a history of diverticulitis with abscess formation and follows a Dr. Chavez on an outpatient basis. Patient had a colonoscopy back in February 2024 and has not got results yet from [facility]. His initial blood work reveals a blood cell count 10.60, INR 4.1, BUN of 19 creatinine 0.56, sodium 140, potassium 3.9. Urinalysis is not suggestive of infection. Abdominal pelvis CT does reveal a thickened distal sigmoid colon the proximal sigmoid colon and descending colon is thickened wall. There is dilated loops of colon and prominent loops of small bowel filled with air. Scattered air-fluid filled levels are present. Correl ate for distal colonic stenosis or obstruction. Underlying neoplasm should be considered. Cholelithiasis. A periumbilical fat-containing hernia. Patient was admitted to the hospital under general surgery for the possible partial bowel obstruction. NG tube was placed for decompression. Patient will remain n.p.o. and continue with IV fluids. Warfarin has been placed on hold at this time. Medical reports have been requested from [facility] for and currently pending at this time. 10/13/2024 Patient remains in the medical floor NG tube in place. His repeat abdominal x- ray reveals dilated air-filled small bowel loops extending into the pelvis compatible with small bowel obstruction. This may be partial with more normal- appearing colonic bowel gas. His abdomen is less tender and does have increased bowel sounds today. He is feeling better. No BM yet. 10/14/2024 Patient eval today in follow-up on the medical floor. His NG tube accidentally was removed this morning. Had a follow-up abdominal x-ray shows small bowel loops remain prominent but diminished from comparison. Air is present within the colon there is some improvement from comparison. Labs today are showing a white blood cell count of 10.50, hemoglobin 11.6, sodium of 137 potassium of 4.0, BUN of 12.3 creatinine of 0.5, glucose of 125 REVIEW OF SYSTEMS: CONSTITUTIONAL: No fever, no malaise, no fatigue. HEENT: No recent visual problems or hearing problems. Denied any sore throat. CARDIOVASCULAR: No chest pain, orthopnea, PND, no palpitations, no syncope. PULMONARY: No shortness of breath, no cough, no hemoptysis. GASTROINTESTINAL: No diarrhea, Reports nausea vomiting and abdominal pain NEUROLOGICAL: No headaches, no weakness, no numbness. PHYSICAL EXAMINATION: GENERAL: The patient is alert and oriented x3, not in any acute distress. Well developed, well nourished. HEENT: Pupils are round and equally reacting to light. EOMI. No scleral icterus. No conjunctival pallor. Normocephalic, atraumatic. No pharyngeal erythema. No thyromegaly. CARDIOVASCULAR: S1 and S2 present. No murmurs, rubs, or gallops. PULMONARY: Chest is clear to auscultation, no wheezing or crackles. ABDOMEN: Soft, nontender, nondistended, normoactive bowel sounds. No palpable organomegaly. MUSCULOSKELETAL: No joint swelling or deformity. EXTREMITIES: No cyanosis, clubbing, or pedal edema. NEUROLOGICAL: Gross neurological examination did not reveal any focal deficits. SKIN: No rashes Assessment Abdominal pain because of a colonic obstruction related to recurrent sigmoid diverticulitis; improving Leukocytosis History of atrial fibrillation paroxysmal anticoag with warfarin Supratherapeutic INR/Coagulopathy Hypertension GI prophylaxis DVT prophylaxis subcu heparin Full code Plan Scheduled for exploratory laporatomy on 10/16/2024 with possible bowel resection and ostomy formation. Tentative. Hold warfarin at this time INR 5.84 will repeat in the morning no plans to give vitamin K today Start clear liquid diet patient is now having bowel sounds and has had 2 bowel movements NG has been removed. Continue IV Zosyn Continue D5 1/2 normal saline Resume home Lopressor 25 mg twice daily Monitor electrolytes and renal function The impression and plan of care has been dictated by Arlen Dyer Nurse Practitioner as directed. Dr. Dave MD I have performed a history and physical examination and medical decision making of this patient, discussed the same with the dictator, and agree with the dic tators assessment and plan as written, documented as a scribe. Based on total visit time, I have performed more than 50% of this visit. Objective - Vital Signs Vital signs: Vital Signs Temp 98.1 F 10/14/24 07:07 Pulse 64 10/14/24 07:07 Resp 14 10/14/24 07:07 BP 141/78 10/14/24 07:07 Pulse Ox 98 10/14/24 07:07 FiO2 Intake & Output 10/13/24 10/14/24 10/14/24 18:59 06:59 18:59 Intake Total 1600 Output Total 400 750 Balance -400 850 Weight 63.503 kg Intake: Intake, IV Titration 1600 Amount D5-0.45% NaCl with KCl 1500 20Meq/l 1,000 ml @ 125 mls/hr IV .Q8H [facility] Rx#: [id number] Piperacillin-Tazobactam 3 100 .375 gm In Sodium Chloride 0.9% 100 ml @ 25 mls/hr IVPB Q8H [facility] Rx#: [id number] Output: Gastric Drainage 400 150 Urine 600 Other: # Voids 1 # Bowel Movements 1 - Labs CBC & Chem 7: 10/14/24 05:18 10/14/24 05:18 Labs: Abnormal Lab Results - Last 24 Hours (Table) 10/14/24 10/14/24 Range/Units 05:18 05:18 WBC 10.50 H (4.50-10.00) X 10*3/uL RBC 4.26 L (4.40-5.60) X 10*6/uL Hgb 11.6 L (13.0-17.0) g/dL Hct 37.1 L (39.6-50.0) % MCHC 31.3 L (32.0-37.0) g/dL RDW 16.3 H (11.5-14.5) % Neutrophils # 8.38 H (1.80-7.70) X 10*3/uL Lymphocytes # 0.83 L (0.90-5.00) X 10*3/uL Monocytes # 1.09 H (0.20-1.00) X 10*3/uL Anion Gap 12.10 H (4.00-12.00) mmol/L Creatinine 0.5 L (0.6-1.5) mg/dL BUN/Creatinine Ratio 24.60 H (12.00-20.00) Ratio Glucose 125 H (70-110) mg/dL Microbiology - Last 24 Hours (Table) 10/12/24 13:03 Blood Culture - Preliminary Blood Assessment and Plan Time with Patient: Less than 30
[2024-10-14] MEDS: D5-0.45% NACL WITH KCL 20MEQ/L 1,000 ML IV SCH (20:29)
[2024-10-15 06:49] LABS: INR 3.3 (<1.2); Prothrombin Time 33.0 sec (10.0-12.5)
--- NOTE | 2024-10-15 08:16 | XR ---
EXAMINATION TYPE: XR abdomen 2V DATE OF EXAM: 10/15/2024 6:35 AM COMPARISON: None. CLINICAL INDICATION: Male, 64 years old with history of follow up on [facility], TECHNIQUE: XR abdomen 2V view(s) obtained. FINDINGS: Dilated air-filled small bowel loops with increased size and prominence over the interval. Colonic bhaskar wel gas is present as increasing from comparison. Psoas margins are normal. No organomegaly is present. IMPRESSION: 1. Increasing air-filled loops of bowel. Ileus and obstruction within the differential. [facility], , 10/15/2024 8:14 AM
[2024-10-15 10:14] LABS: Basophils # (A) 0.03 X 10*3/uL (0.00-0.10); Basophils % (A) 0.4 %; Eosinophils # (A) 0.15 X 10*3/uL (0.04-0.35); Eosinophils % (A) 1.8 %; HCT 37.6 % (39.6-50.0); HGB 11.8 g/dL (13.0-17.0); Immature Grans, Automated 0.40 %; Lymphocytes # (A) 0.91 X 10*3/uL (0.90-5.00); Lymphocytes % (A) 11.1 %; MCH 26.8 pg (27.0-32.0); MCHC 31.4 g/dL (32.0-37.0); MCV 85.3 FL (80.0-97.0); Monocytes # (A) 0.98 X 10*3/uL (0.20-1.00); Monocytes % (A) 11.9 %; NRBC Per 100 WBC 0 X 10*3/uL (0.00-0.01); Neutrophils # (A) 6.13 X 10*3/uL (1.80-7.70); Neutrophils % (A) 74.4 %; Platelet Count 285 X 10*3/uL (140-440); RBC 4.41 X 10*6/uL (4.40-5.60); RDW 15.6 % (11.5-14.5); WBC 8.23 X 10*3/uL (4.50-10.00)
[2024-10-15 10:35] LABS: Anion Gap 11.30 mmol/L (4.00-12.00); BUN/Creat Ratio 13.17 Ratio (12.00-20.00); Blood Urea Nitrogen 7.9 mg/dL (9.0-27.0); Calcium 9.0 mg/dL (8.7-10.3); Carbon Dioxide 21.7 mmol/L (21.6-31.8); Chloride 104 mmol/L (96-109); Glucose 140 mg/dL (70-110); Potassium 4.3 mmol/L (3.5-5.5); Sodium 137 mmol/L (135-145)
--- NOTE | 2024-10-15 14:00 | P.PN ---
Subjective Progress Note Date: 10/15/24 SURGICAL PROGRESS NOTE CHIEF COMPLAINT: Abdominal pain HISTORY OF PRESENT ILLNESS: Patient denies any abdominal pain. He is having loose bowel movements. Denies any nausea or vomiting. He is having flatus. He reports that the abdomen is distended but less than admission. He is ambulating. Abdominal x-ray reports increasing air-filled loops of bowel. Ileus and obstruction within the differential. Afebrile. WBC 8.23 INR 3.3 PHYSICAL EXAM: VITAL SIGNS: Reviewed. GENERAL: Well-developed in no acute distress. ABDOMEN: Soft. Mildly distended. Nontender. Periumbilical hernia noted NEUROLOGIC: Alert and oriented. Cranial nerves II through XII grossly intact. ASSESSMENT: 1. Suspected exacerbation of sigmoid diverticulitis causing partial colonic obstruction PLAN: - Abdominal x-ray reporting increased air-fluid loops of bowel. Abdomen is distended. - Patient is scheduled for possible exploratory laparotomy, possible bowel resection and possible ostomy tomorrow with Dr. Chavez. Surgeon will discuss surgery further with patient. - N.p.o. after midnight - Continue IV fluids - Continue antibiotics - Continue to hold Coumadin Physician Apparel Stock Checker note has been reviewed by physician. Signing provider agrees with the documented findings, assessment, and plan of care. I have personally seen and examined the patient, reviewed the MEDICAL STAFFING COORDINATOR /PAs history, exam and MDM and agree with the assessment and plan as written. Based on total visit time, I have performed more than 50% of the visit. As above: Patient's abdominal x-ray still shows prominent air-filled small and large bowel loops. Patient states he is still passing gas and had some liquid stools today. Denies pain or vomiting. Only feels minimally bloated. Patient is asking for more to eat. I reviewed all of the recent films with the patient and his at the bedside. Will hold off on surgical intervention at this time given the patient's clinical appearance. May still be required during this admission however. Begin full liquid diet as the patient states the clear liquids are too salty and sweet. Recommend only taking in small volumes of the full liquids. Will repeat abdominal x-rays tomorrow. Tomorrow surgery will be placed on hold for now. Repeat INR tomorrow. Objective - Vital Signs Vital signs: Vital Signs Temp 97.5 F L 10/15/24 12:20 Pulse 66 10/15/24 12:20 Resp 16 10/15/24 12:20 BP 142/90 10/15/24 12:20 Pulse Ox 98 10/15/24 12:20 FiO2 Intake & Output 10/14/24 10/15/24 10/15/24 18:59 06:59 18:59 Intake Total 300 580 Balance 300 580 Intake: Oral 300 580 Other: # Voids 2 6 # Bowel Movements 1 - Labs CBC & Chem 7: 10/15/24 06:05 10/15/24 06:05 Labs: Abnormal Lab Results - Last 24 Hours (Table) 10/15/24 10/15/24 10/15/24 Range/Units 06:05 06:05 06:05 Hgb 11.8 L (13.0-17.0) g/dL Hct 37.6 L (39.6-50.0) % MCH 26.8 L (27.0-32.0) pg MCHC 31.4 L (32.0-37.0) g/dL RDW 15.6 H (11.5-14.5) % PT 33.0 H (10.0-12.5) sec INR 3.3 H (<1.2) BUN 7.9 L (9.0-27.0) mg/dL Glucose 140 H (70-110) mg/dL Microbiology - Last 24 Hours (Table) 10/12/24 13:03 Blood Culture - Preliminary Blood
--- NOTE | 2024-10-15 15:31 | P.PN ---
Subjective Progress Note Date: 10/15/24 Interval History: This is a 64 year old with medical history significant for atrial fibrillation, hypertension. Patient comes into the hospital with complaints of 1 week of abdominal pain thought initially it was a stomach bug was having multiple episodes of nausea and vomiting. He was having frequent stools but denied diarrhea. He was also passing gas and belching frequently. Does have a history of diverticulitis with abscess formation and follows a Dr. Chavez on an outpatient basis. Patient had a colonoscopy back in February 2024 and has not got results yet from [facility]. His initial blood work reveals a blood cell count 10.60, INR 4.1, BUN of 19 creatinine 0.56, sodium 140, potassium 3.9. Urinalysis is not suggestive of infection. Abdominal pelvis CT does reveal a thickened distal sigmoid colon the proximal sigmoid colon and descending colon is thickened wall. There is dilated loops of colon and prominent loops of small bowel filled with air. Scattered air-fluid filled levels are present. Correlate for distal colonic stenosis or obstruction. Underlying neoplasm should be considered. Cholelithiasis. A periumbilical fat-containing hernia. Patient was admitted to the hospital under general surgery for the possible partial bowel obstruction. NG tube was placed for decompression. Patient will remain n.p.o. and continue with IV fluids. Warfarin has been placed on hold at this time. Medical reports have been requested from [facility] for and currently pending at this time. 10/13/2024 Patient remains in the medical floor NG tube in place. His repeat abdominal x- ray reveals dilated air-filled small bowel loops extending into the pelvis compatible with small bowel obstruction. This may be partial with more normal- appearing colonic bowel gas. His abdomen is less tender and does have increased bowel sounds today. He is feeling better. No BM yet. 10/14/2024 Patient eval today in follow-up on the medical floor. His NG tube accidentally was removed this morning. Had a follow-up abdominal x-ray shows small bowel loops remain prominent but diminished from comparison. Air is present within the colon there is some improvement from comparison. Labs today are showing a white blood cell count of 10.50, hemoglobin 11.6, sodium of 137 potassium of 4.0, BUN of 12.3 creatinine of 0.5, glucose of 125 10/15/24 Patient was seen and examined today. Patient tolerating clear liquid diet. Patient reported having loose bowel movements today, reported 4 loose small bow el movements today. Passing flatus. Denied any nausea or vomiting. Abdomen distended. Patient ambulating. Repeat abdominal x-ray showed increasing air- fluid loops of bowel. General surgery following, recommended to continue IV fluids, antibiotics, n.p.o. after midnight for possible OR tomorrow. Patient is afebrile, heart rate 66, respiratory rate 16, blood pressure 148/90, saturating 98% on room air. WBC 8.2 hemoglobin 11.8 platelet 285. INR trending down 3.3. BMP unremarkable with normal BUN/creatinine. Assessment Abdominal pain because of a colonic obstruction related to recurrent sigmoid diverticulitis; improving Leukocytosis History of atrial fibrillation paroxysmal anticoag with warfarin Supratherapeutic INR/Coagulopathy Hypertension GI prophylaxis DVT prophylaxis subcu heparin Full code Plan Scheduled for possible exploratory laporatomy on 10/16/2024 with possible bowel resection and ostomy formation. Tentative. Hold warfarin at this time INR trending down, will repeat in the morning no plans to give vitamin K today Currently on clear liquid diet. NG has been removed. Continue IV Zosyn Continue D5 1/2 normal saline Resume home Lopressor 25 mg twice daily Monitor electrolytes and renal function Monitor vital signs and labs Labs and medication were reviewed. Continue same treatment. Further recommendations as per clinical course of the patient PHYSICAL EXAMINATION: GENERAL: The patient is A&O x3, NAD HEENT: EOMI, Sclerae anicteric, Moist Mucous membranes Neck: Supple, Non tender, No JVD PULMONARY: Equal breath souds B/L, No wheezing, No crackles. CARDIOVASCULAR: S1, S2 present. No murmurs, rubs, or gallops. ABDOMEN: Soft, nontender, nondistended, normoactive bowel sounds. No guarding or rebound tenderness. MUSCULOSKELETAL: No edema, No cyanosis. No clubbing. Normal ROM. Intact peripheral pulses. NEUROLOGICAL: CN 2-12 grossly intact. No FND Skin: No Rash REVIEW OF SYSTEMS: CONSTITUTIONAL: No fever or chills. CARDIOVASCULAR: No chest pain, palpitations or syncope. PULMONARY: No shortness of breath, no cough, sore throat. GASTROINTESTINAL: No nausea, vomiting, diarrhea, abdominal pain. : No Dysuria, urgency, frequency. Extremities: No edema. NEUROLOGICAL: No headaches, no weakness, or numbness Dictation was produced using [employer] 3[employer] dictation software. please excuse any grammatical, word or spelling errors. Objective - Vital Signs Vital signs: Vital Signs Temp 97.5 F L 10/15/24 12:20 Pulse 66 10/15/24 12:20 Resp 16 10/15/24 12:20 BP 142/90 10/15/24 12:20 Pulse Ox 98 10/15/24 12:20 FiO2 Intake & Output 10/14/24 10/15/24 10/15/24 18:59 06:59 18:59 Intake Total 300 580 Balance 300 580 Intake: Oral 300 580 Other: # Voids 2 6 # Bowel Movements 1 - Labs CBC & Chem 7: 10/15/24 06:05 10/15/24 06:05 Labs: Abnormal Lab Results - Last 24 Hours (Table) 10/15/24 10/15/24 10/15/24 Range/Units 06:05 06:05 06:05 Hgb 11.8 L (13.0-17.0) g/dL Hct 37.6 L (39.6-50.0) % MCH 26.8 L (27.0-32.0) pg MCHC 31.4 L (32.0-37.0) g/dL RDW 15.6 H (11.5-14.5) % PT 33.0 H (10.0-12.5) sec INR 3.3 H (<1.2) BUN 7.9 L (9.0-27.0) mg/dL Glucose 140 H (70-110) mg/dL Microbiology - Last 24 Hours (Table) 10/12/24 13:03 Blood Culture - Preliminary Blood
[2024-10-15 16:22] LABS: INR 2.8 (<1.2); Prothrombin Time 27.4 sec (10.0-12.5)
--- NOTE | 2024-10-16 08:22 | XR ---
EXAMINATION TYPE: XR abdomen 2V DATE OF EXAM: 10/16/2024 8:13 AM COMPARISON: 10/15/2024 CLINICAL INDICATION: Male, 64 years old with history of follow up on dilated bowel, TECHNIQUE: XR abdomen 2V view(s) obtained. FINDINGS: There is persistent stable appearing air-filled bowel dilatation. Psoas margins are unremarkable. No organomegaly is present. IMPRESSION: 1. Persistent small bowel air-filled dilated loops. There is some persistent dilated air-filled colon . [facility], , 10/16/2024 8:20 AM
[2024-10-16 10:15] LABS: Basophils # (A) 0.02 X 10*3/uL (0.00-0.10); Basophils % (A) 0.2 %; Eosinophils # (A) 0.17 X 10*3/uL (0.04-0.35); Eosinophils % (A) 2.1 %; HCT 41.6 % (39.6-50.0); HGB 12.8 g/dL (13.0-17.0); Immature Grans, Automated 0.50 %; Lymphocytes # (A) 0.97 X 10*3/uL (0.90-5.00); Lymphocytes % (A) 11.8 %; MCH 27.0 pg (27.0-32.0); MCHC 30.8 g/dL (32.0-37.0); MCV 87.8 FL (80.0-97.0); Monocytes # (A) 1.04 X 10*3/uL (0.20-1.00); Monocytes % (A) 12.6 %; NRBC Per 100 WBC 0 X 10*3/uL (0.00-0.01); Neutrophils # (A) 6.00 X 10*3/uL (1.80-7.70); Neutrophils % (A) 72.8 %; Platelet Count 325 X 10*3/uL (140-440); RBC 4.74 X 10*6/uL (4.40-5.60); RDW 15.8 % (11.5-14.5); WBC 8.24 X 10*3/uL (4.50-10.00)
[2024-10-16 10:44] LABS: Anion Gap 12.70 mmol/L (4.00-12.00); BUN/Creat Ratio 7.12 Ratio (12.00-20.00); Blood Urea Nitrogen 5.7 mg/dL (9.0-27.0); Carbon Dioxide 22.3 mmol/L (21.6-31.8); Chloride 102 mmol/L (96-109); Glucose 159 mg/dL (70-110); Magnesium 2.0 mg/dL (1.5-2.4); Potassium 3.9 mmol/L (3.5-5.5); Sodium 137 mmol/L (135-145)
[2024-10-16 10:45] LABS: ALT 16 U/L (10-49); AST 24 U/L (14-35); Albumin 4.4 g/dL (3.8-4.9); Albumin/Globulin Ratio 1.83 Ratio (1.60-3.17); Alkaline Phosphatase 81 U/L (41-126); Calcium 9.3 mg/dL (8.7-10.3); Globulin 2.4 g/dL (1.6-3.3); Total Protein 6.8 g/dL (6.2-8.2)
--- NOTE | 2024-10-16 14:38 | P.PN ---
Subjective Progress Note Date: 10/16/24 SURGICAL PROGRESS NOTE CHIEF COMPLAINT: Abdominal pain HISTORY OF PRESENT ILLNESS: Patient denies any abdominal pain. He had 3 loose stools today. He is passing a small amount of gas. Denies any nausea or vomiting. Tolerating full liquids afebrile. WBC 8.8 INR yesterday 1.28 Abdominal x-ray from this a.m. reports persistent small bowel air-filled dilated loops. There is some persistent dilated air-filled colon. PHYSICAL EXAM: VITAL SIGNS: Reviewed. GENERAL: Well-developed in no acute distress. ABDOMEN: Soft. Mildly distended. Nontender. Periumbilical hernia noted NEUROLOGIC: Alert and oriented. Cranial nerves II through XII grossly intact. ASSESSMENT: 1. Suspected exacerbation of sigmoid diverticulitis causing partial colonic obstruction PLAN: -Continue to monitor closely -Continue full liquid diet -Repeat abdominal x-ray in a.m. -Continue antibiotics -Continue to hold Coumadin -Repeat PT/INR in a.m. Physician Heart Coordinator note has been reviewed by physician. Signing provider agrees with the documented findings, assessment, and plan of care. I have personally seen and examined the patient, reviewed the VITICULTURE TEACHER /PAs history, exam and MDM and agree with the assessment and plan as written. Based on total visit time, I have performed more than 50% of the visit. As above: Clinically patient again appears to be doing better than his x-rays. Having small bowel movements. No significant gas however since yesterday. No nausea or vomiting. Tolerating small volume of full liquids. Will repeat abdominal films tomorrow. Again recommending exploratory laparotomy if abdomi nal x-rays show persistent bowel dilation. Objective - Vital Signs Vital signs: Vital Signs Temp 98.9 F 10/16/24 12:34 Pulse 58 L 10/16/24 12:34 Resp 16 10/16/24 12:34 BP 134/62 10/16/24 12:34 Pulse Ox 98 10/16/24 12:34 FiO2 Intake & Output 10/15/24 10/16/24 10/16/24 18:59 06:59 18:59 Intake Total 1320 Balance 1320 Intake: Oral 1320 Other: Voiding Method Toilet Toilet # Voids 5 3 - Labs CBC & Chem 7: 10/16/24 07:10 10/16/24 07:10 Labs: Abnormal Lab Results - Last 24 Hours (Table) 10/15/24 10/16/24 10/16/24 Range/Units 15:57 07:10 07:10 Hgb 12.8 L (13.0-17.0) g/dL MCHC 30.8 L (32.0-37.0) g/dL RDW 15.8 H (11.5-14.5) % Monocytes # 1.04 H (0.20-1.00) X 10*3/uL PT 27.4 H (10.0-12.5) sec INR 2.8 H (<1.2) Anion Gap 12.70 H (4.00-12.00) mmol/L BUN 5.7 L (9.0-27.0) mg/dL BUN/Creatinine Ratio 7.12 L (12.00-20.00) Ratio Glucose 159 H (70-110) mg/dL Microbiology - Last 24 Hours (Table) 10/12/24 13:03 Blood Culture - Preliminary Blood
--- NOTE | 2024-10-16 14:43 | P.PN ---
Subjective Progress Note Date: 10/16/24 This is a 64 year old with medical history significant for atrial fibrillation, hypertension. Patient comes into the hospital with complaints of 1 week of abdominal pain thought initially it was a stomach bug was having multiple episodes of nausea and vomiting. He was having frequent stools but denied di arrhea. He was also passing gas and belching frequently. Does have a history of diverticulitis with abscess formation and follows a Dr. Chavez on an outpatient basis. Patient had a colonoscopy back in February 2024 and has not got results yet from [facility]. His initial blood work reveals a blood cell count 10.60, INR 4.1, BUN of 19 creatinine 0.56, sodium 140, potassium 3.9. Urinalysis is not suggestive of infection. Abdominal pelvis CT does reveal a thickened distal sigmoid colon the proximal sigmoid colon and descending colon is thickened wall. There is dilated loops of colon and prominent loops of small bowel filled with air. Scattered air-fluid filled levels are present. Correl ate for distal colonic stenosis or obstruction. Underlying neoplasm should be considered. Cholelithiasis. A periumbilical fat-containing hernia. Patient was admitted to the hospital under general surgery for the possible partial bowel obstruction. NG tube was placed for decompression. Patient will remain n.p.o. and continue with IV fluids. Warfarin has been placed on hold at this time. Medical reports have been requested from [facility] for and currently pending at this time. 10/13/2024 Patient remains in the medical floor NG tube in place. His repeat abdominal x- ray reveals dilated air-filled small bowel loops extending into the pelvis compatible with small bowel obstruction. This may be partial with more normal- appearing colonic bowel gas. His abdomen is less tender and does have increased bowel sounds today. He is feeling better. No BM yet. 10/14/2024 Patient eval today in follow-up on the medical floor. His NG tube accidentally was removed this morning. Had a follow-up abdominal x-ray shows small bowel loops remain prominent but diminished from comparison. Air is present within the colon there is some improvement from comparison. Labs today are showing a white blood cell count of 10.50, hemoglobin 11.6, sodium of 137 potassium of 4.0, BUN of 12.3 creatinine of 0.5, glucose of 125 10/15/24 Patient was seen and examined today. Patient tolerating clear liquid diet. Patient reported having loose bowel movements today, reported 4 loose small bowel movements today. Passing flatus. Denied any nausea or vomiting. Abdomen distended. Patient ambulating. Repeat abdominal x-ray showed increasing air- fluid loops of bowel. General surgery following, recommended to continue IV fluids, antibiotics, n.p.o. after midnight for possible OR tomorrow. Patient is afebrile, heart rate 66, respiratory rate 16, blood pressure 148/90, saturating 98% on room air. WBC 8.2 hemoglobin 11.8 platelet 285. INR trending down 3.3. BMP unremarkable with normal BUN/creatinine. 10/16. Patient seen and examined. Labs reviewed showing WBC 8.24, hemoglobin 12.8, platelet count 325, sodium 137, potassium 3.9, BUN 5.7, creatinine 0.8,. Currently n.p.o. X ray abdomin this morning showed persistent small bowel air- filled dilated loops Denies any abdominal pain. Denies any nausea or vomiting. Tolerating full liquid diet REVIEW OF SYSTEMS: CONSTITUTIONAL: No fever, no malaise,. CARDIOVASCULAR: No chest pain, no palpitations, no syncope. PULMONARY: No shortness of breath, no cough, GASTROINTESTINAL: As mentioned above NEUROLOGICAL: No headaches, no weakness, PHYSICAL EXAMINATION: GENERAL: The patient is alert and oriented x3, not in any acute distress. Well d eveloped, well nourished. HEENT: Pupils are round and equally reacting to light. EOMI. No scleral icterus. No conjunctival pallor. Normocephalic, atraumatic. No pharyngeal erythema. No thyromegaly. CARDIOVASCULAR: S1 and S2 present. No murmurs, rubs, or gallops. PULMONARY: Chest is clear to auscultation, no wheezing or crackles. ABDOMEN: Soft, nontender, nondistended, normoactive bowel sounds. No palpable organomegaly. MUSCULOSKELETAL: No joint swelling or deformity. EXTREMITIES: No cyanosis, clubbing, or pedal edema. NEUROLOGICAL: Gross neurological examination did not reveal any focal deficits. SKIN: No rashes. Assessment and plan Abdominal pain because of a colonic obstruction related to recurrent sigmoid diverticulitis; improving Leukocytosis History of atrial fibrillation paroxysmal anticoag with warfarin Supratherapeutic INR/Coagulopathy Hypertension Monitor vital signs Monitor CBC Monitor CMP Continue IV Zosyn Continue D5 1/2 normal saline Continue Lopressor Surgery following possible exploratory laporatomy patient does not improve with possible bowel resection and ostomy formation Labs and medication were reviewed.. Continue same treatment. Continue with sy mptomatic treatment. Resume home medication. Monitor labs and vitals. DVT and GI prophylaxis. Further recommendations as per clinical course of the patient Dictation was produced using [employer] dictation software. please excuse any grammatical, word or spelling errors. Objective - Vital Signs Vital signs: Vital Signs Temp 98.5 F 10/16/24 07:20 Pulse 80 10/16/24 07:20 Resp 16 10/16/24 07:20 BP 132/83 10/16/24 07:20 Pulse Ox 98 10/16/24 07:20 FiO2 Intake & Output 10/15/24 10/16/24 10/16/24 18:59 06:59 18:59 Intake Total 1320 Balance 1320 Intake: Oral 1320 Other: Voiding Method Toilet Toilet # Voids 5 3 - Labs CBC & Chem 7: 10/16/24 07:10 10/16/24 07:10 Labs: Abnormal Lab Results - Last 24 Hours (Table) 10/15/24 10/16/24 10/16/24 Range/Units 15:57 07:10 07:10 Hgb 12.8 L (13.0-17.0) g/dL MCHC 30.8 L (32.0-37.0) g/dL RDW 15.8 H (11.5-14.5) % Monocytes # 1.04 H (0.20-1.00) X 10*3/uL PT 27.4 H (10.0-12.5) sec INR 2.8 H (<1.2) Anion Gap 12.70 H (4.00-12.00) mmol/L BUN 5.7 L (9.0-27.0) mg/dL BUN/Creatinine Ratio 7.12 L (12.00-20.00) Ratio Glucose 159 H (70-110) mg/dL Microbiology - Last 24 Hours (Table) 10/12/24 13:03 Blood Culture - Preliminary Blood
--- NOTE | 2024-10-16 23:45 | P.CONS ---
History of Present Illness - Reason for Consult Consult date: 10/16/24 Recurrent diverticulitis Requesting physician: Geovani Esteves - Chief Complaint Abdominal pain x days - History of Present Illness Patient is a 64-year-old male with a past medical history significant for atrial fibrillation hypertension history of diverticulitis presenting to the hospital for evaluation of abdominal pain that apparently has been going on for about a week before presentation to the hospital she was describing pain mostly lower abdominal pain area dull aching to colicky moderate intensity without radiation with associated nausea and vomiting patient denies high-grade fever or presentation to the hospital the patient was afebrile and no fever have been called subsequently patient was not tachycardic hypotensive or hypoxic patient did have 1 elevated white count 10.50 on 10/14/2024 otherwise white count has been normal did have elevated INR creatinine has been 0.8 electrolytes are normal liver enzymes are normal urine has been negative blood culture have been negative patient did have abdominal pelvis CT thickened distal sigmoid colon correlate for distal colonic stenosis or obstruction neoplasm should be considered patient subsequently did have a daily abdominal x-ray with the last 1 obtained this morning did shows persistent small bowel air-filled dilated loops persistent dilated air-filled colon and the patient was supposed to go for surgery however the patient refused as the patient mention overall improvement in his abdominal pain infectious he was consulted today for further management of antibiotic therapy patient did mention that he did have a history of colonoscopy back in September at this hospital and repeat colonoscopy outside facility in February 2024 did not mention any evidence of malignancy Review of Systems Positive point and negatives has been mentioned in the HPI, complete review of systems was performed and all other systems are negative Past Medical History Past Medical History: Atrial Fibrillation, Hypertension Additional Past Medical History / Comment(s): Dry AMD History of Any Multi-Drug Resistant Organisms: None Reported Past Surgical History: No Surgical Hx Reported Past Psychological History: No Psychological Hx Reported Smoking Status: Former smoker Past Alcohol Use History: None Reported Past Drug Use History: Marijuana Medications and Allergies Home Medications Medication Instructions Recorded Confirmed Type Cholecalciferol [Vitamin D3 (25 50 mcg PO DAILY 09/13/23 10/12/24 History Mcg = 1000 Iu)] Magnesium Citrate and Oxide 250 mg PO DAILY 09/13/23 10/12/24 History [Magnesium] Metoprolol Tartrate [Lopressor] 25 mg PO BID@0800,199909/13/23 10/12/24 History Vit C/E/Zn/Coppr/Lutein/Zeaxan 1 cap PO BID@0800,199910/12/24 10/12/24 History [Preservision Areds 2 Softgel] Warfarin [Coumadin] 10 mg PO DAILY@1800 10/12/24 10/12/24 History Allergies Allergy/AdvReac Type Severity Reaction Status Date / Time No Known Allergies Allergy Verified 10/12/24 14:19 Physical Exam Vitals: Vital Signs Temp Pulse Resp BP Pulse Ox 10/16/24 12:34 98.9 F 58 L 16 134/62 98 10/16/24 07:20 98.5 F 80 16 132/83 98 10/16/24 01:37 98.6 F 66 16 137/84 97 10/15/24 19:46 98.5 F 82 16 124/75 96 Intake and Output 10/16/24 10/16/24 10/16/24 06:59 14:59 22:59 Intake Total 560 Balance 560 Intake: Oral 560 Other: Voiding Method Toilet # Voids 3 GENERAL DESCRIPTION: Middle-age male lying in bed, no distress. No tachypnea or accessory muscle of respiration use. HEENT: Shows Pallor , no scleral icterus. Oral mucous membrane is dry. No pharyngeal erythema or thrush NECK: Trachea central, no thyromegaly. LUNGS: Unlabored breathing. Clear to auscultation anteriorly. No wheeze or crackle. HEART: S1, S2, regular rate and rhythm. No loud murmur ABDOMEN: Soft, no tenderness , EXTREMITIES: No edema of feet. SKIN: No rash, no masses palpable. NEUROLOGICAL: The patient is awake, alert, oriented x3, mood and affect normal. Results CBC & Chem 7: 10/16/24 07:10 10/16/24 07:10 Labs: Abnormal Lab Results - Last 24 Hours (Table) 10/15/24 10/16/24 10/16/24 Range/Units 15:57 07:10 07:10 Hgb 12.8 L (13.0-17.0) g/dL MCHC 30.8 L (32.0-37.0) g/dL RDW 15.8 H (11.5-14.5) % Monocytes # 1.04 H (0.20-1.00) X 10*3/uL PT 27.4 H (10.0-12.5) sec INR 2.8 H (<1.2) Anion Gap 12.70 H (4.00-12.00) mmol/L BUN 5.7 L (9.0-27.0) mg/dL BUN/Creatinine Ratio 7.12 L (12.00-20.00) Ratio Glucose 159 H (70-110) mg/dL Microbiology - Last 24 Hours (Table) 10/12/24 13:03 Blood Culture - Preliminary Blood Assessment and Plan (1) Diverticulitis Current Visit: Yes Status: Acute Code(s): K57.92 - DVTRCLI OF INTEST, PART UNSP, W/O PERF OR ABSCESS W/O BLEED SNOMED Code(s): 043114660 Plan: 1patient with initial presentation to hospital with abdominal pain in this patient who did have abnormal CT with mention thickening of the sigmoid colon possible colitis/diverticulitis as the patient did have a 2 colonoscopy last year in September as well as in February I did not show any signs of malignancy as reported by the patient and the patient seem to have shown clinical improvement but no significant improvement on the x-rays. 2we will continue patient on Zosyn 3.375 g every 8 hours and monitor his clinical course closely. Multiple questions and concerns were answered. We will follow on clinical condition and cultures to further adjust medication if needed Thank you for this consultation we will follow the patient along with you Dictation was produced using [employer] dictation software. please excuse any grammatical, word or spelling errors. Time with Patient: Greater than 30
--- NOTE | 2024-10-17 07:51 | XR ---
EXAMINATION TYPE: XR abdomen 2V DATE OF EXAM: 10/17/2024 7:09 AM COMPARISON: One day prior CLINICAL INDICATION: Male, 64 years old with history of Follow-up bowel obstruction; [facility] TECHNIQUE: Two views of the abdomen were obtained. FINDINGS: Similar Gaseous dilation of bowel throughout the abdomen small bowel dilation up to 5.2 cm. . There is no evidence for organomegaly or pneumoperitoneum. No acute osseous process. No abnorm al calcifications are present. IMPRESSION: Gaseous dilation of bowel throughout the abdomen correlate for ileus versus bowel obstruction. [facility], , 10/17/2024 7:49 AM
[2024-10-17 08:14] LABS: INR 1.5 (<1.2); Prothrombin Time 15.6 sec (10.0-12.5)
--- NOTE | 2024-10-17 09:24 | P.PN ---
Subjective Progress Note Date: 10/17/24 Principal diagnosis: Bowel obstruction Patient feels about the same. Mild bloating. No nausea or vomiting. Having some small bowel movements but no flatus. He is afebrile. INR normal now at 1.5 Objective - Vital Signs Vital signs: Vital Signs Temp 97.9 F 10/17/24 07:20 Pulse 71 10/17/24 07:20 Resp 16 10/17/24 07:20 BP 124/80 10/17/24 07:20 Pulse Ox 98 10/17/24 07:20 FiO2 Intake & Output 10/16/24 10/17/24 10/17/24 18:59 06:59 18:59 Intake Total 2620 240 Balance 2620 240 Intake: Oral 2620 240 Other: Voiding Method Toilet # Voids 5 1 # Bowel Movements 1 - Exam Abdomen: Soft, mild distention, nontender - Labs CBC & Chem 7: 10/16/24 07:10 10/16/24 07:10 Labs: Abnormal Lab Results - Last 24 Hours (Table) 10/16/24 10/16/24 10/17/24 Range/Units 07:10 07:10 06:51 Hgb 12.8 L (13.0-17.0) g/dL MCHC 30.8 L (32.0-37.0) g/dL RDW 15.8 H (11.5-14.5) % Monocytes # 1.04 H (0.20-1.00) X 10*3/uL PT 15.6 H (10.0-12.5) sec INR 1.5 H (<1.2) Anion Gap 12.70 H (4.00-12.00) mmol/L BUN 5.7 L (9.0-27.0) mg/dL BUN/Creatinine Ratio 7.12 L (12.00-20.00) Ratio Glucose 159 H (70-110) mg/dL Assessment and Plan (1) Bowel obstruction Narrative/Plan: 64-year-old male with persistent partial colonic obstruction. Repeat abdominal x-rays today show persistent small bowel and proximal colonic air-filled dilated bowel loops. Patient is had only subtle improvement with antibiotic therapy. Patient says he is tired of conservative management at this point and is willing to proceed with surgical intervention. Will proceed with exploratory laparotomy, possible bowel resection, possible ostomy tomorrow. Risks of bleeding, infection, scarring, leak, abscess, stricture, bladder bowel and ureteral injury, hernia, need for further surgeries. Patient understands and wishes to proceed. May initiate heparin drip. Heparin drip to be held at 4 AM tomorrow morning. Current Visit: Yes Status: Acute Code(s): K56.609 - UNSP INTESTNL OBST, UNSP TO PARTIAL VERSUS COMPLETE OBST SNOMED Code(s): 59499760
[2024-10-17] MEDS ORDERED: HEPARIN SODIUM 1,000 UN/ML (10ML VL) IV PRN (10:04)
[2024-10-17 11:42] LABS: Basophils # (A) 0.03 10*3/uL (0.00-0.10); Basophils % (A) 0.5 %; Eosinophils # (A) 0.09 10*3/uL (0.04-0.35); Eosinophils % (A) 1.4 %; HCT 37.5 % (39.6-50.0); HGB 12.0 g/dL (13.0-17.0); Lymphocytes # (A) 0.94 10*3/uL (0.90-5.00); Lymphocytes % (A) 15.0 %; MCH 27.5 pg (27.0-32.0); MCHC 32.0 g/dL (32.0-37.0); MCV 86.0 fL (80.0-97.0); Monocytes # (A) 0.93 10*3/uL (0.20-1.00); Monocytes % (A) 14.9 %; Neutrophils # (A) 4.25 10*3/uL (1.80-7.70); Neutrophils % (A) 67.9 %; Platelet Count 329 10*3/uL (140-440); RBC 4.36 10*6/uL (4.40-5.60); RDW 15.6 % (11.5-14.5); WBC 6.26 10*3/uL (4.50-10.00)
[2024-10-17 11:52] LABS: INR 1.4 (<1.2); Partial Thromboplastin Time 26.9 sec (22.0-30.0); Prothrombin Time 14.7 sec (10.0-12.5)
[2024-10-17] MEDS: HEPARIN SOD,PORK IN 0.45% NACL 25,000 UNIT in 0.45% NACL 1 250ML.BAG IV SCH (12:09)
[2024-10-17] MEDS: HEPARIN SODIUM 1,000 UN/ML (10ML VL) IV ONE (12:10)
--- NOTE | 2024-10-17 14:31 | P.PN ---
Subjective Progress Note Date: 10/17/24 This is a 64 year old with medical history significant for atrial fibrillation, hypertension. Patient comes into the hospital with complaints of 1 week of abdominal pain thought initially it was a stomach bug was having multiple episodes of nausea and vomiting. He was having frequent stools but denied di arrhea. He was also passing gas and belching frequently. Does have a history of diverticulitis with abscess formation and follows a Dr. Chavez on an outpatient basis. Patient had a colonoscopy back in February 2024 and has not got results yet from [facility]. His initial blood work reveals a blood cell count 10.60, INR 4.1, BUN of 19 creatinine 0.56, sodium 140, potassium 3.9. Urinalysis is not suggestive of infection. Abdominal pelvis CT does reveal a thickened distal sigmoid colon the proximal sigmoid colon and descending colon is thickened wall. There is dilated loops of colon and prominent loops of small bowel filled with air. Scattered air-fluid filled levels are present. Correl ate for distal colonic stenosis or obstruction. Underlying neoplasm should be considered. Cholelithiasis. A periumbilical fat-containing hernia. Patient was admitted to the hospital under general surgery for the possible partial bowel obstruction. NG tube was placed for decompression. Patient will remain n.p.o. and continue with IV fluids. Warfarin has been placed on hold at this time. Medical reports have been requested from [facility] for and currently pending at this time. 10/13/2024 Patient remains in the medical floor NG tube in place. His repeat abdominal x- ray reveals dilated air-filled small bowel loops extending into the pelvis compatible with small bowel obstruction. This may be partial with more normal- appearing colonic bowel gas. His abdomen is less tender and does have increased bowel sounds today. He is feeling better. No BM yet. 10/14/2024 Patient eval today in follow-up on the medical floor. His NG tube accidentally was removed this morning. Had a follow-up abdominal x-ray shows small bowel loops remain prominent but diminished from comparison. Air is present within the colon there is some improvement from comparison. Labs today are showing a white blood cell count of 10.50, hemoglobin 11.6, sodium of 137 potassium of 4.0, BUN of 12.3 creatinine of 0.5, glucose of 125 10/15/24 Patient was seen and examined today. Patient tolerating clear liquid diet. Patient reported having loose bowel movements today, reported 4 loose small bowel movements today. Passing flatus. Denied any nausea or vomiting. Abdomen distended. Patient ambulating. Repeat abdominal x-ray showed increasing air- fluid loops of bowel. General surgery following, recommended to continue IV fluids, antibiotics, n.p.o. after midnight for possible OR tomorrow. Patient is afebrile, heart rate 66, respiratory rate 16, blood pressure 148/90, saturating 98% on room air. WBC 8.2 hemoglobin 11.8 platelet 285. INR trending down 3.3. BMP unremarkable with normal BUN/creatinine. 10/16. Patient seen and examined. Labs reviewed showing WBC 8.24, hemoglobin 12.8, platelet count 325, sodium 137, potassium 3.9, BUN 5.7, creatinine 0.8,. Currently n.p.o. X ray abdomin this morning showed persistent small bowel air- filled dilated loops Denies any abdominal pain. Denies any nausea or vomiting. Tolerating full liquid diet 10/17. Patient seen and examined. Patient does not feel much better from yesterday. Surgery planning exploratory laparotomy tomorrow, n.p.o. after m idnight. Patient to be initiated on heparin pharmacy to dose, heparin needs to be held at 4 AM in the morning tomorrow REVIEW OF SYSTEMS: CONSTITUTIONAL: No fever, no malaise,. CARDIOVASCULAR: No chest pain, no palpitations, no syncope. PULMONARY: No shortness of breath, no cough, GASTROINTESTINAL: As mentioned above NEUROLOGICAL: No headaches, no weakness, PHYSICAL EXAMINATION: GENERAL: The patient is alert and oriented x3, not in any acute distress. Well developed, well nourished. HEENT: Pupils are round and equally reacting to light. EOMI. No scleral icterus. No conjunctival pallor. Normocephalic, atraumatic. No pharyngeal erythema. No thyromegaly. CARDIOVASCULAR: S1 and S2 present. No murmurs, rubs, or gallops. PULMONARY: Chest is clear to auscultation, no wheezing or crackles. ABDOMEN: Soft, nontender, nondistended, normoactive bowel sounds. No palpable organomegaly. MUSCULOSKELETAL: No joint swelling or deformity. EXTREMITIES: No cyanosis, clubbing, or pedal edema. NEUROLOGICAL: Gross neurological examination did not reveal any focal deficits. SKIN: No rashes. Assessment and plan Abdominal pain because of a colonic obstruction related to recurrent sigmoid di verticulitis; improving Leukocytosis History of atrial fibrillation paroxysmal anticoag with warfarin Supratherapeutic INR/Coagulopathy Hypertension Monitor vital signs Monitor CBC Monitor CMP Continue IV Zosyn Continue D5 1/2 normal saline Continue Lopressor Patient to be initiated on heparin pharmacy to dose, heparin needs to be held at 4 AM in the morning tomorrow Surgery following possible exploratory laporatomy tomorrow with possible bowel resection and ostomy formation Labs and medication were reviewed.. Continue same treatment. Continue with symptomatic treatment. Resume home medication. Monitor labs and vitals. DVT and GI prophylaxis. Further recommendations as per clinical course of the patient Dictation was produced using [employer] dictation software. please excuse any grammatical, word or spelling errors. Objective - Vital Signs Vital signs: Vital Signs Temp 97.9 F 10/17/24 07:20 Pulse 71 10/17/24 07:20 Resp 16 10/17/24 07:20 BP 124/80 10/17/24 07:20 Pulse Ox 98 10/17/24 07:20 FiO2 Intake & Output 10/16/24 10/17/24 10/17/24 18:59 06:59 18:59 Intake Total 2620 240 Balance 2620 240 Intake: Oral 2620 240 Other: Voiding Method Toilet Toilet # Voids 5 1 # Bowel Movements 1 - Labs CBC & Chem 7: 10/17/24 10:47 10/16/24 07:10 Labs: Abnormal Lab Results - Last 24 Hours (Table) 10/17/24 Range/Units 06:51 PT 15.6 H (10.0-12.5) sec INR 1.5 H (<1.2)
--- NOTE | 2024-10-17 15:29 | P.PN ---
Subjective Progress Note Date: 10/17/24 Principal diagnosis: Reason for follow-up is colitis Patient is a 64-year-old male with a past medical history significant for atrial fibrillation hypertension history of diverticulitis presenting to the hospital for evaluation of abdominal pain did have abnormal CT concerning for thickening of the sigmoid colon concern for possible obstruction and ileus. On today's evaluation that is 10/18/2023, patient did have a temperature of 97.9 F this morning and denies having any chills, patient is on room air and breathing comfortably no chest pain or cough, the patient did not have any nausea vomiting mention improvement abdominal pain and did have some bowel movement but not passing any gas. Patient white count 6.26 blood culture has been negative abdominal x-ray this morning gaseous dilatation of the bowel throughout the abdomen Objective - Vital Signs Vital signs: Vital Signs Temp 97.6 F 10/17/24 12:29 Pulse 60 10/17/24 12:29 Resp 16 10/17/24 12:29 BP 125/81 10/17/24 12:29 Pulse Ox 97 10/17/24 12:29 FiO2 Intake & Output 10/16/24 10/17/24 10/17/24 18:59 06:59 18:59 Intake Total 2620 590 Balance 2620 590 Intake: Oral 2620 590 Other: Voiding Method Toilet Toilet # Voids 5 1 # Bowel Movements 1 - Exam GENERAL DESCRIPTION: Middle-age male lying in bed in no distress RESPIRATORY SYSTEM: Unlabored breathing , decreased breath sounds at bases HEART: S1 S2 regular rate and rhythm , ABDOMEN: Soft , no tenderness EXTREMITIES: No edema feet - Labs CBC & Chem 7: 10/17/24 10:47 10/16/24 07:10 Labs: Abnormal Lab Results - Last 24 Hours (Table) 10/17/24 10/17/24 10/17/24 Range/Units 06:51 10:47 10:47 RBC 4.36 L (4.40-5.60) 10*6/uL Hgb 12.0 L (13.0-17.0) g/dL Hct 37.5 L (39.6-50.0) % RDW 15.6 H (11.5-14.5) % PT 15.6 H 14.7 H (10.0-12.5) sec INR 1.5 H 1.4 H (<1.2) Assessment and Plan (1) Diverticulitis Current Visit: Yes Status: Acute Code(s): K57.92 - DVTRCLI OF INTEST, PART UNSP, W/O PERF OR ABSCESS W/O BLEED SNOMED Code(s): 157254838 Plan: 1patient with initial presentation to hospital with abdominal pain in this patient who did have abnormal CT with mention thickening of the sigmoid colon possible colitis/diverticulitis as the patient did have a 2 colonoscopy last year in September as well as in February I did not show any signs of malignancy as reported by the patient and the patient seem to have shown clinical improvement but no significant improvement on the x-rays. 2patient seem to be agreeable for surgery scheduled for tomorrow morning for now continue with the Zosynfollow-up on the surgical findings Dictation was produced using [employer] dictation software. please excuse any grammatical, word or spelling errors. Time with Patient: Less than 30
[2024-10-18 07:46] LABS: INR 1.3 (<1.2); Prothrombin Time 13.5 sec (10.0-12.5)
[2024-10-18] MEDS ORDERED: ePHEDrine 50 MG/ML 1 ML VIAL ONE (08:36)
[2024-10-18] MEDS ORDERED: GLYCOPYRROLATE 0.2 MG/ML 2 ML VIAL ONE (08:36)
[2024-10-18] MEDS ORDERED: SUCCINYLCHOLINE CHLORIDE 200 MG/10 ML VIAL IV ONE (08:36)
[2024-10-18] MEDS ORDERED: LIDOCAINE 1% INJ 10MG/ML (20 ML MDV) ONE (08:36)
[2024-10-18] MEDS ORDERED: MIDAZOLAM 2 MG/2 ML VIAL ONE (08:36)
[2024-10-18] MEDS ORDERED: ROCURONIUM 10 MG/ML (5 ML VIAL) IV ONE (08:36)
[2024-10-18] MEDS ORDERED: NEOSTIGMINE 1 MG/ML 10 ML VIAL ONE (08:36)
[2024-10-18] MEDS ORDERED: PROPOFOL 10 MG/ML 20 ML VIAL IV ONE (08:36)
[2024-10-18] MEDS ORDERED: fentaNYL (PF) 50 MCG/ML 2 ML AMP ONE (08:36)
[2024-10-18] MEDS: LACTATED RINGERS 1,000 ML IV ONE ×3 (08:41→10:41)
[2024-10-18 10:01] LABS: Basophils # (A) 0.05 X 10*3/uL (0.00-0.10); Basophils % (A) 0.8 %; Eosinophils # (A) 0.22 X 10*3/uL (0.04-0.35); Eosinophils % (A) 3.4 %; HCT 39.7 % (39.6-50.0); HGB 12.7 g/dL (13.0-17.0); Immature Grans, Automated 0.30 %; Lymphocytes # (A) 0.96 X 10*3/uL (0.90-5.00); Lymphocytes % (A) 14.8 %; MCH 27.6 pg (27.0-32.0); MCHC 32.0 g/dL (32.0-37.0); MCV 86.3 FL (80.0-97.0); Monocytes # (A) 0.88 X 10*3/uL (0.20-1.00); Monocytes % (A) 13.5 %; NRBC Per 100 WBC 0 X 10*3/uL (0.00-0.01); Neutrophils # (A) 4.37 X 10*3/uL (1.80-7.70); Neutrophils % (A) 67.2 %; Platelet Count 347 X 10*3/uL (140-440); RBC 4.60 X 10*6/uL (4.40-5.60); RDW 15.9 % (11.5-14.5); WBC 6.50 X 10*3/uL (4.50-10.00)
[2024-10-18 10:16] LABS: ALT 14 U/L (10-49); AST 18 U/L (14-35); Albumin 4.3 g/dL (3.8-4.9); Albumin/Globulin Ratio 1.79 Ratio (1.60-3.17); Alkaline Phosphatase 72 U/L (41-126); Anion Gap 13.50 mmol/L (4.00-12.00); BUN/Creat Ratio 6.62 Ratio (12.00-20.00); Blood Urea Nitrogen 5.3 mg/dL (9.0-27.0); Calcium 9.3 mg/dL (8.7-10.3); Carbon Dioxide 20.5 mmol/L (21.6-31.8); Chloride 105 mmol/L (96-109); Globulin 2.4 g/dL (1.6-3.3); Glucose 152 mg/dL (70-110); Potassium 4.3 mmol/L (3.5-5.5); Sodium 139 mmol/L (135-145); Total Protein 6.7 g/dL (6.2-8.2)
[2024-10-18] MEDS: HYDROmorphone 0.5 MG/0.5 ML SYRINGE IVP PRN (12:05)
--- NOTE | 2024-10-18 12:58 | P.OP ---
Date of Procedure: 10/18/24 Procedure(s) Performed: PREOPERATIVE DIAGNOSIS: Bowel obstruction, umbilical hernia POSTOPERATIVE DIAGNOSIS: Small bowel obstruction, colon obstruction, umbilical hernia PROCEDURE: Sigmoid colectomy with end colostomy, repair umbilical hernia, small bowel resection, appendectomy SURGEON: Scott EBL: 150 mL ANESTHESIA: General COMPLICATIONS: None OPERATIVE PROCEDURE: Patient place in the operative table in the supine position. The patient was placed under general anesthesia. The abdomen was prepped and draped in usual sterile fashion. A vertical incision was made encompassing extending from the suprapubic region above the umbilicus to the right. The fascia was divided as well. The patient had a moderate-sized fascial defect at the umbilicus that was incorporated into our incision and later closed with our fascial closure. Upon entrance into the peritoneal cavity the small bowel was quickly noted to be distended. The Bookwalter retractor was utilized. The small bowel was inspected. The small bowel was adherent to the sigmoid colon where the colonic obstruction was taking place. The adhesions between the small bowel and colon were lysed using sharp dissection. No obvious perforation at that site was noted however the patient's small bowel had significant induration there and it was felt safest to proceed with resection. A small enterotomy was made at that site and the small bowel was suction proximally and distally. Interestingly the bowel between this site and the ileocecal valve was more distended than it was proximally. The bowel was divided on either side of the enterotomy using a linear 75 stapler. The mesentery was divided using LigaSure. The antimesenteric portion of the staple line was removed. The linear stapler was fired along the antimesenteric border. The remaining defect was closed using a transfer stapler. As I inspected this anastomosis later it appeared slightly ischemic. This was thought to be related to the mesenteric dissection. This was reperformed and a new small portion of small bowel was removed at the anastomotic site. At this time the anastomosis appeared patent and quite viable. The transverse staple line was indicated using interrupted 3-0 GI silk's. A 3-0 GI silk crotch stitch was placed. The mesenteric defect was closed using a running 3-0 Vicryl stitch. Attention was then directed to the pelvis. Interestingly the patient's appendix was distended coming off the cecum and was densely adherent to the masslike area of the mid sigmoid colon. The appendix was divided using a linear 75 stapler at the cecal order. The mesentery of the appendix was divided using LigaSure. I then mobilized the left colon. As we approached the site of colonic obstruction the colon was extremely firm and had evidence of marked chronic inflammatory changes. The bladder was very adherent anteriorly. The mass was especially adherent to the left pelvic sidewall. On the right-hand side it was adherent to the appendix. Careful dissection took place mobilizing the sigmoid colon. This took place using blunt dissection, cautery, and sharp technique as well. Care was taken to stay right on the colon wall to avoid the risk of iatrogenic ureteral injury. I was able to see the ureter proximally on the left and felt that it appeared deep to our dissection site but it was difficult to say with 100% certainty given the degree of inflammatory changes there. Once I had the sigmoid colon mobilized the colon was divided proximal to the site of inflammatory change using a linear green load stapler. The mesentery was divided using a combination of 0 silk ties, LigaSure, and electrocautery. Distally the bowel was divided using a contour green load stapler. The area was thoroughly irrigated. No bleeding was noted. The anastomosis was again inspected and appeared viable. We had adequate length of our descending colon f or ostomy. A circular incision was made in the left midabdomen. Dissection through the subcutaneous fat and fascia took place using electrocautery. I bluntly entered the peritoneal cavity and this was further bluntly opened. The bowel was brought out through this defect in the left midabdomen. The midline fascia was then reapproximated using 2 separate double-stranded #1 PDS sutures. The patient's fascia at the umbilical hernia site were incorporated into the fascial closure. The subcutaneous tissues were irrigated. The subcutaneous tissues were closed using 3-0 Vicryl sutures. The base of the umbilicus was sutured down to the fascial closure using 3-0 Vicryl sutures. The skin was then closed using braxton. The ostomy was then addressed. A portion of the pericolonic fat was removed using the LigaSure device. The staple line was then removed using electrocautery. The ostomy was then matured in a [place] fashion using interrupted 3-0 Vicryl sutures. An ostomy appliance was then applied. Sterile dressings were then applied to the midline incision. DISPOSITION: Stable to recovery room
[2024-10-18] MEDS: HYDROmorphone 1 MG/ML 1 ML SYRINGE IVP PRN (14:45)
[2024-10-18] MEDS: HEPARIN SODIUM,PORCINE 5,000 UNIT/ML 1 ML VIAL SQ SCH (16:02)
[2024-10-18] MEDS: ACETAMINOPHEN IV (For NPO) 1,000 MG in EMPTY BAG 1 BAG IVPB SCH (18:31)
[2024-10-18] MEDS: KETOROLAC 15 MG/ML 1 ML VIAL IVP SCH (18:31)
[2024-10-19 08:02] LABS: Basophils # (A) 0.01 X 10*3/uL (0.00-0.10); Basophils % (A) 0.1 %; Eosinophils # (A) 0.04 X 10*3/uL (0.04-0.35); Eosinophils % (A) 0.5 %; HCT 35.4 % (39.6-50.0); HGB 11.2 g/dL (13.0-17.0); Immature Grans, Automated 0.30 %; Lymphocytes # (A) 0.51 X 10*3/uL (0.90-5.00); Lymphocytes % (A) 5.9 %; MCH 27.9 pg (27.0-32.0); MCHC 31.6 g/dL (32.0-37.0); MCV 88.3 FL (80.0-97.0); Monocytes # (A) 0.91 X 10*3/uL (0.20-1.00); Monocytes % (A) 10.5 %; NRBC Per 100 WBC 0 X 10*3/uL (0.00-0.01); Neutrophils # (A) 7.14 X 10*3/uL (1.80-7.70); Neutrophils % (A) 82.7 %; Platelet Count 285 X 10*3/uL (140-440); RBC 4.01 X 10*6/uL (4.40-5.60); RDW 15.6 % (11.5-14.5); WBC 8.64 X 10*3/uL (4.50-10.00)
[2024-10-19 10:35] LABS: Anion Gap 8.60 mmol/L (4.00-12.00); BUN/Creat Ratio 13.67 Ratio (12.00-20.00); Blood Urea Nitrogen 8.2 mg/dL (9.0-27.0); Calcium 8.3 mg/dL (8.7-10.3); Carbon Dioxide 23.4 mmol/L (21.6-31.8); Chloride 101 mmol/L (96-109); Glucose 136 mg/dL (70-110); Potassium 4.5 mmol/L (3.5-5.5); Sodium 133 mmol/L (135-145)
--- NOTE | 2024-10-19 11:12 | P.PN ---
Subjective Progress Note Date: 10/18/24 This is a 64 year old with medical history significant for atrial fibrillation, hypertension. Patient comes into the hospital with complaints of 1 week of abdominal pain thought initially it was a stomach bug was having multiple episodes of nausea and vomiting. He was having frequent stools but denied di arrhea. He was also passing gas and belching frequently. Does have a history of diverticulitis with abscess formation and follows a Dr. Chavez on an outpatient basis. Patient had a colonoscopy back in February 2024 and has not got results yet from [facility]. His initial blood work reveals a blood cell count 10.60, INR 4.1, BUN of 19 creatinine 0.56, sodium 140, potassium 3.9. Urinalysis is not suggestive of infection. Abdominal pelvis CT does reveal a thickened distal sigmoid colon the proximal sigmoid colon and descending colon is thickened wall. There is dilated loops of colon and prominent loops of small bowel filled with air. Scattered air-fluid filled levels are present. Correl ate for distal colonic stenosis or obstruction. Underlying neoplasm should be considered. Cholelithiasis. A periumbilical fat-containing hernia. Patient was admitted to the hospital under general surgery for the possible partial bowel obstruction. NG tube was placed for decompression. Patient will remain n.p.o. and continue with IV fluids. Warfarin has been placed on hold at this time. Medical reports have been requested from [facility] for and currently pending at this time. 10/13/2024 Patient remains in the medical floor NG tube in place. His repeat abdominal x- ray reveals dilated air-filled small bowel loops extending into the pelvis compatible with small bowel obstruction. This may be partial with more normal- appearing colonic bowel gas. His abdomen is less tender and does have increased bowel sounds today. He is feeling better. No BM yet. 10/14/2024 Patient eval today in follow-up on the medical floor. His NG tube accidentally was removed this morning. Had a follow-up abdominal x-ray shows small bowel loops remain prominent but diminished from comparison. Air is present within the colon there is some improvement from comparison. Labs today are showing a white blood cell count of 10.50, hemoglobin 11.6, sodium of 137 potassium of 4.0, BUN of 12.3 creatinine of 0.5, glucose of 125 10/15/24 Patient was seen and examined today. Patient tolerating clear liquid diet. Patient reported having loose bowel movements today, reported 4 loose small bowel movements today. Passing flatus. Denied any nausea or vomiting. Abdomen distended. Patient ambulating. Repeat abdominal x-ray showed increasing air- fluid loops of bowel. General surgery following, recommended to continue IV fluids, antibiotics, n.p.o. after midnight for possible OR tomorrow. Patient is afebrile, heart rate 66, respiratory rate 16, blood pressure 148/90, saturating 98% on room air. WBC 8.2 hemoglobin 11.8 platelet 285. INR trending down 3.3. BMP unremarkable with normal BUN/creatinine. 10/16. Patient seen and examined. Labs reviewed showing WBC 8.24, hemoglobin 12.8, platelet count 325, sodium 137, potassium 3.9, BUN 5.7, creatinine 0.8,. Currently n.p.o. X ray abdomin this morning showed persistent small bowel air- filled dilated loops Denies any abdominal pain. Denies any nausea or vomiting. Tolerating full liquid diet 10/17. Patient seen and examined. Patient does not feel much better from yesterday. Surgery planning exploratory laparotomy tomorrow, n.p.o. after m idnight. Patient to be initiated on heparin pharmacy to dose, heparin needs to be held at 4 AM in the morning tomorrow 10/18. Patient seen examined. Currently n.p.o., going for surgery today labs r eviewed WBC 6.5, hemoglobin 8.7, sodium 139, potassium 4.3, BUN 5.3, creatinine 0.8. REVIEW OF SYSTEMS: CONSTITUTIONAL: No fever, no malaise,. CARDIOVASCULAR: No chest pain, no palpitations, no syncope. PULMONARY: No shortness of breath, no cough, GASTROINTESTINAL: As mentioned above NEUROLOGICAL: No headaches, no weakness, PHYSICAL EXAMINATION: GENERAL: The patient is alert and oriented x3, not in any acute distress. Well developed, well nourished. HEENT: Pupils are round and equally reacting to light. EOMI. No scleral icterus. No conjunctival pallor. Normocephalic, atraumatic. No pharyngeal erythema. No thyromegaly. CARDIOVASCULAR: S1 and S2 present. No murmurs, rubs, or gallops. PULMONARY: Chest is clear to auscultation, no wheezing or crackles. ABDOMEN: Soft, nontender, nondistended, normoactive bowel sounds. No palpable organomegaly. MUSCULOSKELETAL: No joint swelling or deformity. EXTREMITIES: No cyanosis, clubbing, or pedal edema. NEUROLOGICAL: Gross neurological examination did not reveal any focal deficits. SKIN: No rashes. Assessment and plan Abdominal pain because of a colonic obstruction related to recurrent sigmoid diverticulitis; improving Leukocytosis History of atrial fibrillation paroxysmal anticoag with warfarin Supratherapeutic INR/Coagulopathy Hypertension Monitor vital signs Monitor CBC Monitor CMP Continue IV Zosyn Continue D5 1/2 normal saline Continue Lopressor Heparin on hold in preparation for surgery Surgery following possible exploratory laporatomy today with possible bowel resection and ostomy formation Labs and medication were reviewed.. Continue same treatment. Continue with symptomatic treatment. Resume home medication. Monitor labs and vitals. DVT and GI prophylaxis. Further recommendations as per clinical course of the patient Dictation was produced using [employer] dictation software. please excuse any gr ammatical, word or spelling errors. Objective - Vital Signs Vital signs: Vital Signs Temp 98.3 F 10/18/24 06:48 Pulse 66 10/18/24 06:48 Resp 16 10/18/24 06:48 BP 133/82 10/18/24 06:48 Pulse Ox 98 10/18/24 06:48 FiO2 Intake & Output 10/17/24 10/18/24 10/18/24 18:59 06:59 18:59 Intake Total 2981.689 240 200 Output Total 1 Balance 2980.689 240 200 Intake: IV 200 Intake, IV Titration 51.689 Amount Heparin Sod,Pork in 0.45% 51.689 NaCl 25,000 unit In 0.45 % NaCl 1 250ml.bag @ 12 UNITS/KG/HR 7.62 mls/hr IV .Q24H ELVIS Rx#: [id number] Oral 2930 240 Output: Urine/Stool Mix 1 Other: Voiding Method Toilet Toilet Toilet # Voids 5 1 - Labs CBC & Chem 7: 10/18/24 06:24 10/18/24 06:24 Labs: Abnormal Lab Results - Last 24 Hours (Table) 10/17/24 10/17/24 10/17/24 Range/Units 10:47 10:47 18:13 RBC 4.36 L (4.40-5.60) 10*6/uL Hgb 12.0 L (13.0-17.0) g/dL Hct 37.5 L (39.6-50.0) % RDW 15.6 H (11.5-14.5) % PT 14.7 H (10.0-12.5) sec INR 1.4 H (<1.2) APTT 46.1 H (22.0-30.0) sec Carbon Dioxide (21.6-31.8) mmol/L Anion Gap (4.00-12.00) mmol/L BUN (9.0-27.0) mg/dL BUN/Creatinine Ratio (12.00-20.00) Ratio Glucose (70-110) mg/dL 10/18/24 10/18/24 10/18/24 Range/Units 06:24 06:24 06:24 RBC (4.40-5.60) 10*6/uL Hgb 12.7 L (13.0-17.0) g/dL Hct (39.6-50.0) % RDW 15.9 H (11.5-14.5) % PT 13.5 H (10.0-12.5) sec INR 1.3 H (<1.2) APTT (22.0-30.0) sec Carbon Dioxide 20.5 L (21.6-31.8) mmol/L Anion Gap 13.50 H (4.00-12.00) mmol/L BUN 5.3 L (9.0-27.0) mg/dL BUN/Creatinine Ratio 6.62 L (12.00-20.00) Ratio Glucose 152 H (70-110) mg/dL Microbiology - Last 24 Hours (Table) 10/12/24 13:03 Blood Culture - Final Blood
--- NOTE | 2024-10-19 14:25 | P.PN ---
Subjective Progress Note Date: 10/19/24 This is a 64 year old with medical history significant for atrial fibrillation, hypertension. Patient comes into the hospital with complaints of 1 week of abdominal pain thought initially it was a stomach bug was having multiple episodes of nausea and vomiting. He was having frequent stools but denied di arrhea. He was also passing gas and belching frequently. Does have a history of diverticulitis with abscess formation and follows a Dr. Chavez on an outpatient basis. Patient had a colonoscopy back in February 2024 and has not got results yet from [facility]. His initial blood work reveals a blood cell count 10.60, INR 4.1, BUN of 19 creatinine 0.56, sodium 140, potassium 3.9. Urinalysis is not suggestive of infection. Abdominal pelvis CT does reveal a thickened distal sigmoid colon the proximal sigmoid colon and descending colon is thickened wall. There is dilated loops of colon and prominent loops of small bowel filled with air. Scattered air-fluid filled levels are present. Correl ate for distal colonic stenosis or obstruction. Underlying neoplasm should be considered. Cholelithiasis. A periumbilical fat-containing hernia. Patient was admitted to the hospital under general surgery for the possible partial bowel obstruction. NG tube was placed for decompression. Patient will remain n.p.o. and continue with IV fluids. Warfarin has been placed on hold at this time. Medical reports have been requested from [facility] for and currently pending at this time. 10/13/2024 Patient remains in the medical floor NG tube in place. His repeat abdominal x- ray reveals dilated air-filled small bowel loops extending into the pelvis compatible with small bowel obstruction. This may be partial with more normal- appearing colonic bowel gas. His abdomen is less tender and does have increased bowel sounds today. He is feeling better. No BM yet. 10/14/2024 Patient eval today in follow-up on the medical floor. His NG tube accidentally was removed this morning. Had a follow-up abdominal x-ray shows small bowel loops remain prominent but diminished from comparison. Air is present within the colon there is some improvement from comparison. Labs today are showing a white blood cell count of 10.50, hemoglobin 11.6, sodium of 137 potassium of 4.0, BUN of 12.3 creatinine of 0.5, glucose of 125 10/15/24 Patient was seen and examined today. Patient tolerating clear liquid diet. Patient reported having loose bowel movements today, reported 4 loose small bowel movements today. Passing flatus. Denied any nausea or vomiting. Abdomen distended. Patient ambulating. Repeat abdominal x-ray showed increasing air- fluid loops of bowel. General surgery following, recommended to continue IV fluids, antibiotics, n.p.o. after midnight for possible OR tomorrow. Patient is afebrile, heart rate 66, respiratory rate 16, blood pressure 148/90, saturating 98% on room air. WBC 8.2 hemoglobin 11.8 platelet 285. INR trending down 3.3. BMP unremarkable with normal BUN/creatinine. 10/16. Patient seen and examined. Labs reviewed showing WBC 8.24, hemoglobin 12.8, platelet count 325, sodium 137, potassium 3.9, BUN 5.7, creatinine 0.8,. Currently n.p.o. X ray abdomin this morning showed persistent small bowel air- filled dilated loops Denies any abdominal pain. Denies any nausea or vomiting. Tolerating full liquid diet 10/17. Patient seen and examined. Patient does not feel much better from yesterday. Surgery planning exploratory laparotomy tomorrow, n.p.o. after m idnight. Patient to be initiated on heparin pharmacy to dose, heparin needs to be held at 4 AM in the morning tomorrow 10/18. Patient seen examined. Currently n.p.o., going for surgery today labs r eviewed WBC 6.5, hemoglobin 8.7, sodium 139, potassium 4.3, BUN 5.3, creatinine 0.8. 10/19. Patient seen and examined. Patient underwent Sigmoid colectomy with end colostomy, repair umbilical hernia, small bowel resection, appendectomy. Patient has ostomy output REVIEW OF SYSTEMS: CONSTITUTIONAL: No fever, no malaise,. CARDIOVASCULAR: No chest pain, no palpitations, no syncope. PULMONARY: No shortness of breath, no cough, GASTROINTESTINAL: As mentioned above NEUROLOGICAL: No headaches, no weakness, PHYSICAL EXAMINATION: GENERAL: The patient is alert and oriented x3, not in any acute distress. Well developed, well nourished. HEENT: Pupils are round and equally reacting to light. EOMI. No scleral icterus. No conjunctival pallor. Normocephalic, atraumatic. No pharyngeal erythema. No thyromegaly. CARDIOVASCULAR: S1 and S2 present. No murmurs, rubs, or gallops. PULMONARY: Chest is clear to auscultation, no wheezing or crackles. ABDOMEN: Soft, nontender, surgical incisions seen, ostomy seen MUSCULOSKELETAL: No joint swelling or deformity. EXTREMITIES: No cyanosis, clubbing, or pedal edema. NEUROLOGICAL: Gross neurological examination did not reveal any focal deficits. SKIN: No rashes. Assessment and plan Abdominal pain because of a colonic obstruction related to recurrent sigmoid diverticulitis; improving Leukocytosis History of atrial fibrillation paroxysmal anticoag with warfarin Supratherapeutic INR/Coagulopathy Hypertension Monitor vital signs Monitor CBC Monitor CMP Patient underwent Sigmoid colectomy with end colostomy, repair umbilical hernia, small bowel resection, appendectomy Continue IV Zosyn Continue D5 1/2 normal saline Continue Lopressor Surgery following Labs and medication were reviewed.. Continue same treatment. Continue with symptomatic treatment. Resume home medication. Monitor labs and vitals. DVT and GI prophylaxis. Further recommendations as per clinical course of the patient Dictation was produced using [employer] dictation software. please excuse any grammatical, word or spelling errors. Objective - Vital Signs Vital signs: Vital Signs Temp 98.4 F 10/19/24 07:41 Pulse 71 10/19/24 07:41 Resp 20 10/19/24 07:41 BP 133/77 10/19/24 07:41 Pulse Ox 97 10/19/24 07:41 FiO2 Intake & Output 10/18/24 10/19/24 10/19/24 18:59 06:59 18:59 Intake Total 2000 600 Output Total 900 700 400 Balance 1100 -100 -400 Intake: IV 1700 Oral 300 Other 600 Output: Urine 750 700 400 Uretheral (Briceño) 300 Estimated Blood Loss 150 Other: Voiding Method Toilet Indwelling Catheter - Labs CBC & Chem 7: 10/19/24 05:12 10/19/24 05:12 Labs: Abnormal Lab Results - Last 24 Hours (Table) 10/19/24 10/19/24 Range/Units 05:12 05:12 RBC 4.01 L (4.40-5.60) X 10*6/uL Hgb 11.2 L (13.0-17.0) g/dL Hct 35.4 L (39.6-50.0) % MCHC 31.6 L (32.0-37.0) g/dL RDW 15.6 H (11.5-14.5) % Lymphocytes # 0.51 L (0.90-5.00) X 10*3/uL Sodium 133 L (135-145) mmol/L BUN 8.2 L (9.0-27.0) mg/dL Glucose 136 H (70-110) mg/dL Calcium 8.3 L (8.7-10.3) mg/dL
--- NOTE | 2024-10-19 15:49 | P.PN ---
Subjective Progress Note Date: 10/19/24 Principal diagnosis: Bowel obstruction Patient doing well today. Says his pain is improved. Sitting up in chair. Had stool through the ostomy. Denies nausea or vomiting. White blood cell count 8.6, hemoglobin 11.2. Objective - Vital Signs Vital signs: Vital Signs Temp 98.1 F 10/19/24 12:45 Pulse 66 10/19/24 12:45 Resp 20 10/19/24 12:45 BP 125/71 10/19/24 12:45 Pulse Ox 96 10/19/24 12:45 FiO2 Intake & Output 10/18/24 10/19/24 10/19/24 18:59 06:59 18:59 Intake Total 2000 600 Output Total 900 700 400 Balance 1100 -100 -400 Intake: IV 1700 Oral 300 Other 600 Output: Urine 750 700 400 Uretheral (Briceño) 300 Estimated Blood Loss 150 Other: Voiding Method Toilet Indwelling Catheter # Voids 1 - Exam Abdomen: Soft, nondistended, dressing clean and dry, ostomy functioning already - Labs CBC & Chem 7: 10/19/24 05:12 10/19/24 05:12 Labs: Abnormal Lab Results - Last 24 Hours (Table) 10/19/24 10/19/24 Range/Units 05:12 05:12 RBC 4.01 L (4.40-5.60) X 10*6/uL Hgb 11.2 L (13.0-17.0) g/dL Hct 35.4 L (39.6-50.0) % MCHC 31.6 L (32.0-37.0) g/dL RDW 15.6 H (11.5-14.5) % Lymphocytes # 0.51 L (0.90-5.00) X 10*3/uL Sodium 133 L (135-145) mmol/L BUN 8.2 L (9.0-27.0) mg/dL Glucose 136 H (70-110) mg/dL Calcium 8.3 L (8.7-10.3) mg/dL Assessment and Plan (1) Bowel obstruction Narrative/Plan: Patient doing well today. He has had some bowel function through the ostomy. Will advance to clear liquid diet. Ambulate. Remove Briceño catheter. Continue antibiotics. Current Visit: Yes Status: Acute Code(s): K56.609 - UNSP INTESTNL OBST, UNSP TO PARTIAL VERSUS COMPLETE OBST SNOMED Code(s): 52004555
--- NOTE | 2024-10-19 17:02 | P.PN ---
Subjective Progress Note Date: 10/19/24 Principal diagnosis: Reason for follow-up is colitis Patient is a 64-year-old male with a past medical history significant for atrial fibrillation hypertension history of diverticulitis presenting to the hospital for evaluation of abdominal pain did have abnormal CT concerning for thickening of the sigmoid colon concern for possible obstruction and ileus. Patient was taken to the OR status post sigmoid colectomy with end colostomy repair of the umbilical hernia small bowel resection and appendectomy operative report did not mention any abscess. On today's evaluation that is 10/19/2024, patient has been afebrile, patient is breathing comfortably and is currently on room air, patient denies having any chest pain and cough, patient is up in the chair denies having any nausea abdominal pain is currently controlled he did have gas in his colostomy. The patient white count is 8.64, creatinine 0.6 Objective - Vital Signs Vital signs: Vital Signs Temp 98.1 F 10/19/24 12:45 Pulse 66 10/19/24 12:45 Resp 20 10/19/24 12:45 BP 125/71 10/19/24 12:45 Pulse Ox 96 10/19/24 12:45 FiO2 Intake & Output 10/18/24 10/19/24 10/19/24 18:59 06:59 18:59 Intake Total 2000 600 Output Total 900 700 400 Balance 1100 -100 -400 Intake: IV 1700 Oral 300 Other 600 Output: Urine 750 700 400 Uretheral (Briceño) 300 Estimated Blood Loss 150 Other: Voiding Method Toilet Indwelling Catheter Indwelling Catheter # Voids 1 - Exam GENERAL DESCRIPTION: Middle-age male lying in bed in no distress RESPIRATORY SYSTEM: Unlabored breathing , decreased breath sounds at bases HEART: S1 S2 regular rate and rhythm , ABDOMEN: Soft , no tenderness EXTREMITIES: No edema feet - Labs CBC & Chem 7: 10/19/24 05:12 10/19/24 05:12 Labs: Abnormal Lab Results - Last 24 Hours (Table) 10/19/24 10/19/24 Range/Units 05:12 05:12 RBC 4.01 L (4.40-5.60) X 10*6/uL Hgb 11.2 L (13.0-17.0) g/dL Hct 35.4 L (39.6-50.0) % MCHC 31.6 L (32.0-37.0) g/dL RDW 15.6 H (11.5-14.5) % Lymphocytes # 0.51 L (0.90-5.00) X 10*3/uL Sodium 133 L (135-145) mmol/L BUN 8.2 L (9.0-27.0) mg/dL Glucose 136 H (70-110) mg/dL Calcium 8.3 L (8.7-10.3) mg/dL Assessment and Plan (1) Diverticulitis Current Visit: Yes Status: Acute Code(s): K57.92 - DVTRCLI OF INTEST, PART UNSP, W/O PERF OR ABSCESS W/O BLEED SNOMED Code(s): 151419448 (2) Bowel obstruction Current Visit: Yes Status: Acute Code(s): K56.609 - UNSP INTESTNL OBST, UNSP TO PARTIAL VERSUS COMPLETE OBST SNOMED Code(s): 85586157 Plan: 1patient with initial presentation to hospital with abdominal pain in this patient who did have abnormal CT with mention thickening of the sigmoid colon possible colitis/diverticulitis as the patient did have a 2 colonoscopy last year in September as well as in February and did not show any signs of malignancy as reported by the patient and the patient seem to have shown clinical improvement but no significant improvement on the x-rays. 2patient status post laparotomy small bowel resection and colostomy operative report did not mention any abscess 3patient is currently being treated Zosyn and monitor clinical course closely and follow-up on the biopsy Dictation was produced using [employer] dictation software. please excuse any grammatical, word or spelling errors. Time with Patient: Less than 30
--- NOTE | 2024-10-19 17:02 | P.PN ---
Subjective Progress Note Date: 10/18/24 Principal diagnosis: Reason for follow-up is colitis Patient is a 64-year-old male with a past medical history significant for atrial fibrillation hypertension history of diverticulitis presenting to the hospital for evaluation of abdominal pain did have abnormal CT concerning for thickening of the sigmoid colon concern for possible obstruction and ileus. On today's evaluation that is Patient was taken to the OR status post sigmoid colectomy with end colostomy repair of the umbilical hernia small bowel resection and appendectomy operative report did not mention any abscess. On today's evaluation that is 10/18/2024, Patient is afebrile patient is currently on room air and denies having any shortness of breath, the patient denies any chest pain or cough, the patient has been complaining of abdominal pain postsurgery some nausea but no vomiting. Patient white count 6.50, creatinine 0.8 Objective - Vital Signs Vital signs: Vital Signs Temp 98.1 F 10/18/24 13:15 Pulse 71 10/18/24 14:30 Resp 16 10/18/24 13:15 BP 141/84 10/18/24 14:30 Pulse Ox 99 10/18/24 13:15 FiO2 Intake & Output 10/17/24 10/18/24 10/18/24 18:59 06:59 18:59 Intake Total 2981.795 917 7759 Output Total 1 400 Balance 2980.577 421 0948 Intake: IV 1700 Intake, IV Titration 51.689 Amount Heparin Sod,Pork in 0.45% 51.689 NaCl 25,000 unit In 0.45 % NaCl 1 250ml.bag @ 12 UNITS/KG/HR 7.62 mls/hr IV .Q24H ELVIS Rx#: [id number] Oral 2930 240 Output: Urine 250 Urine/Stool Mix 1 Estimated Blood Loss 150 Other: Voiding Method Toilet Toilet Toilet # Voids 5 1 - Exam GENERAL DESCRIPTION: Middle-age male lying in bed in no distress RESPIRATORY SYSTEM: Unlabored breathing , decreased breath sounds at bases HEART: S1 S2 regular rate and rhythm , ABDOMEN: Soft , no tenderness EXTREMITIES: No edema feet - Labs CBC & Chem 7: 10/19/24 05:12 10/19/24 05:12 Labs: Abnormal Lab Results - Last 24 Hours (Table) 10/17/24 10/18/24 10/18/24 Range/Units 18:13 06:24 06:24 Hgb 12.7 L (13.0-17.0) g/dL RDW 15.9 H (11.5-14.5) % PT 13.5 H (10.0-12.5) sec INR 1.3 H (<1.2) APTT 46.1 H (22.0-30.0) sec Carbon Dioxide (21.6-31.8) mmol/L Anion Gap (4.00-12.00) mmol/L BUN (9.0-27.0) mg/dL BUN/Creatinine Ratio (12.00-20.00) Ratio Glucose (70-110) mg/dL 10/18/24 Range/Units 06:24 Hgb (13.0-17.0) g/dL RDW (11.5-14.5) % PT (10.0-12.5) sec INR (<1.2) APTT (22.0-30.0) sec Carbon Dioxide 20.5 L (21.6-31.8) mmol/L Anion Gap 13.50 H (4.00-12.00) mmol/L BUN 5.3 L (9.0-27.0) mg/dL BUN/Creatinine Ratio 6.62 L (12.00-20.00) Ratio Glucose 152 H (70-110) mg/dL Microbiology - Last 24 Hours (Table) 10/12/24 13:03 Blood Culture - Final Blood Assessment and Plan (1) Diverticulitis Current Visit: Yes Status: Acute Code(s): K57.92 - DVTRCLI OF INTEST, PART UNSP, W/O PERF OR ABSCESS W/O BLEED SNOMED Code(s): 540708042 (2) Bowel obstruction Current Visit: Yes Status: Acute Code(s): K56.609 - UNSP INTESTNL OBST, UNSP TO PARTIAL VERSUS COMPLETE OBST SNOMED Code(s): 67963879 Plan: 1patient with initial presentation to hospital with abdominal pain in this patient who did have abnormal CT with mention thickening of the sigmoid colon possible colitis/diverticulitis as the patient did have a 2 colonoscopy last year in September as well as in February and did not show any signs of malignancy as reported by the patient and the patient seem to have shown clinical improvement but no significant improvement on the x-rays. 2patient status post laparotomy small bowel resection and colostomy operative report did not mention any abscess 3will keep the patient on Zosyn and monitor clinical course closely Dictation was produced using [employer] dictation software. please excuse any grammatical, word or spelling errors. Time with Patient: Less than 30
[2024-10-20 08:29] LABS: Basophils # (A) 0.02 10*3/uL (0.00-0.10); Basophils % (A) 0.3 %; Eosinophils # (A) 0.07 10*3/uL (0.04-0.35); Eosinophils % (A) 0.9 %; HCT 39.9 % (39.6-50.0); HGB 12.6 g/dL (13.0-17.0); Lymphocytes # (A) 0.54 10*3/uL (0.90-5.00); Lymphocytes % (A) 7.0 %; MCH 27.5 pg (27.0-32.0); MCHC 31.6 g/dL (32.0-37.0); MCV 86.9 fL (80.0-97.0); Monocytes # (A) 0.71 10*3/uL (0.20-1.00); Monocytes % (A) 9.2 %; Neutrophils # (A) 6.37 10*3/uL (1.80-7.70); Neutrophils % (A) 82.3 %; Platelet Count 220 10*3/uL (140-440); RBC 4.59 10*6/uL (4.40-5.60); RDW 15.9 % (11.5-14.5); WBC 7.73 10*3/uL (4.50-10.00)
--- NOTE | 2024-10-20 11:03 | P.PN ---
Subjective Progress Note Date: 10/20/24 This is a 64 year old with medical history significant for atrial fibrillation, hypertension. Patient comes into the hospital with complaints of 1 week of abdominal pain thought initially it was a stomach bug was having multiple episodes of nausea and vomiting. He was having frequent stools but denied di arrhea. He was also passing gas and belching frequently. Does have a history of diverticulitis with abscess formation and follows a Dr. Chavez on an outpatient basis. Patient had a colonoscopy back in February 2024 and has not got results yet from [facility]. His initial blood work reveals a blood cell count 10.60, INR 4.1, BUN of 19 creatinine 0.56, sodium 140, potassium 3.9. Urinalysis is not suggestive of infection. Abdominal pelvis CT does reveal a thickened distal sigmoid colon the proximal sigmoid colon and descending colon is thickened wall. There is dilated loops of colon and prominent loops of small bowel filled with air. Scattered air-fluid filled levels are present. Correl ate for distal colonic stenosis or obstruction. Underlying neoplasm should be considered. Cholelithiasis. A periumbilical fat-containing hernia. Patient was admitted to the hospital under general surgery for the possible partial bowel obstruction. NG tube was placed for decompression. Patient will remain n.p.o. and continue with IV fluids. Warfarin has been placed on hold at this time. Medical reports have been requested from [facility] for and currently pending at this time. 10/13/2024 Patient remains in the medical floor NG tube in place. His repeat abdominal x- ray reveals dilated air-filled small bowel loops extending into the pelvis compatible with small bowel obstruction. This may be partial with more normal- appearing colonic bowel gas. His abdomen is less tender and does have increased bowel sounds today. He is feeling better. No BM yet. 10/14/2024 Patient eval today in follow-up on the medical floor. His NG tube accidentally was removed this morning. Had a follow-up abdominal x-ray shows small bowel loops remain prominent but diminished from comparison. Air is present within the colon there is some improvement from comparison. Labs today are showing a white blood cell count of 10.50, hemoglobin 11.6, sodium of 137 potassium of 4.0, BUN of 12.3 creatinine of 0.5, glucose of 125 10/15/24 Patient was seen and examined today. Patient tolerating clear liquid diet. Patient reported having loose bowel movements today, reported 4 loose small bowel movements today. Passing flatus. Denied any nausea or vomiting. Abdomen distended. Patient ambulating. Repeat abdominal x-ray showed increasing air- fluid loops of bowel. General surgery following, recommended to continue IV fluids, antibiotics, n.p.o. after midnight for possible OR tomorrow. Patient is afebrile, heart rate 66, respiratory rate 16, blood pressure 148/90, saturating 98% on room air. WBC 8.2 hemoglobin 11.8 platelet 285. INR trending down 3.3. BMP unremarkable with normal BUN/creatinine. 10/16. Patient seen and examined. Labs reviewed showing WBC 8.24, hemoglobin 12.8, platelet count 325, sodium 137, potassium 3.9, BUN 5.7, creatinine 0.8,. Currently n.p.o. X ray abdomin this morning showed persistent small bowel air- filled dilated loops Denies any abdominal pain. Denies any nausea or vomiting. Tolerating full liquid diet 10/17. Patient seen and examined. Patient does not feel much better from yesterday. Surgery planning exploratory laparotomy tomorrow, n.p.o. after m idnight. Patient to be initiated on heparin pharmacy to dose, heparin needs to be held at 4 AM in the morning tomorrow 10/18. Patient seen examined. Currently n.p.o., going for surgery today labs r eviewed WBC 6.5, hemoglobin 8.7, sodium 139, potassium 4.3, BUN 5.3, creatinine 0.8. 10/19. Patient seen and examined. Patient underwent Sigmoid colectomy with end colostomy, repair umbilical hernia, small bowel resection, appendectomy. Patient has ostomy output 10/20. Patient seen and examined. States he had a rough night, continues to complain of pain at the incision site. Has good ostomy output. Tolerating clear liquid diet REVIEW OF SYSTEMS: CONSTITUTIONAL: No fever, no malaise,. CARDIOVASCULAR: No chest pain, no palpitations, no syncope. PULMONARY: No shortness of breath, no cough, GASTROINTESTINAL: As mentioned above NEUROLOGICAL: No headaches, no weakness, PHYSICAL EXAMINATION: GENERAL: The patient is alert and oriented x3, not in any acute distress. Well developed, well nourished. HEENT: Pupils are round and equally reacting to light. EOMI. No scleral icterus. No conjunctival pallor. Normocephalic, atraumatic. No pharyngeal erythema. No thyromegaly. CARDIOVASCULAR: S1 and S2 present. No murmurs, rubs, or gallops. PULMONARY: Chest is clear to auscultation, no wheezing or crackles. ABDOMEN: Soft, nontender, surgical incisions seen, ostomy seen MUSCULOSKELETAL: No joint swelling or deformity. EXTREMITIES: No cyanosis, clubbing, or pedal edema. NEUROLOGICAL: Gross neurological examination did not reveal any focal deficits. SKIN: No rashes. Assessment and plan Abdominal pain because of a colonic obstruction related to recurrent sigmoid diverticulitis; improving Leukocytosis History of atrial fibrillation paroxysmal anticoag with warfarin Supratherapeutic INR/Coagulopathy Hypertension Monitor vital signs Monitor CBC Monitor CMP Patient underwent Sigmoid colectomy with end colostomy, repair umbilical hernia, small bowel resection, appendectomy Continue D5 1/2 normal saline Continue clear liquid Continue Lopressor Surgery following Labs and medication were reviewed.. Continue same treatment. Continue with symptomatic treatment. Resume home medication. Monitor labs and vitals. DVT and GI prophylaxis. Further recommendations as per clinical course of the patient Dictation was produced using [employer] dictation software. please excuse any grammatical, word or spelling errors. Objective - Vital Signs Vital signs: Vital Signs Temp 98.4 F 10/20/24 07:05 Pulse 66 10/20/24 07:05 Resp 16 10/20/24 07:05 BP 160/75 10/20/24 07:05 Pulse Ox 100 10/20/24 07:05 FiO2 Intake & Output 10/19/24 10/20/24 10/20/24 18:59 06:59 18:59 Output Total 400 Balance -400 Output: Urine 400 Other: Voiding Method Indwelling Catheter Urinal # Voids 1 2 - Labs CBC & Chem 7: 10/20/24 05:24 10/19/24 05:12 Labs: Abnormal Lab Results - Last 24 Hours (Table) 10/20/24 Range/Units 05:24 Hgb 12.6 L (13.0-17.0) g/dL MCHC 31.6 L (32.0-37.0) g/dL RDW 15.9 H (11.5-14.5) % Lymphocytes # 0.54 L (0.90-5.00) 10*3/uL
--- NOTE | 2024-10-20 13:14 | P.PN ---
Subjective Progress Note Date: 10/20/24 SURGICAL PROGRESS NOTE CHIEF COMPLAINT: Abdominal pain HISTORY OF PRESENT ILLNESS: Postop day #2 status post sigmoid colectomy with end colostomy, repair umbilical hernia, small bowel resection and appendectomy. Patient did have pain at the incision site last night. Pain is better this morning. Ostomy is functioning. He denies any nausea or vomiting. He does complain of having difficulty sleeping at night because of the IV was beeping. Afebrile. WBC 7.73 Hgb 12.6 PHYSICAL EXAM: VITAL SIGNS: Reviewed. GENERAL: Well-developed in no acute distress. ABDOMEN: Soft. Incisional dressing clean dry and intact. Colostomy on the left with stool present in the bag NEUROLOGIC: Alert and oriented. Cranial nerves II through XII grossly intact. ASSESSMENT: 1. Small bowel obstruction, colon obstruction and umbilical hernia PLAN: -[place] added for oral pain medication -Continue clear liquid diet -Continue antibiotics -Encourage patient increase activity level -Encourage incentive spirometer use -Continue to hold Coumadin -DVT prophylaxis subcu heparin Physician Shot Grinder Operator note has been reviewed by physician. Signing provider agrees with the documented findings, assessment, and plan of care. I have personally seen and examined the patient, reviewed the BUILDING CLEANER /PAs history, exam and MDM and agree with the assessment and plan as written. Based on total visit time, I have performed more than 50% of the visit. As above: Patient doing well today. Still having stools. No nausea or vomiti ng. Will advance to full liquid diet. Ambulate. Objective - Vital Signs Vital signs: Vital Signs Temp 98.4 F 10/20/24 07:05 Pulse 66 10/20/24 07:05 Resp 16 10/20/24 07:05 BP 160/75 10/20/24 07:05 Pulse Ox 100 10/20/24 07:05 FiO2 Intake & Output 10/19/24 10/20/24 10/20/24 18:59 06:59 18:59 Output Total 400 Balance -400 Output: Urine 400 Other: Voiding Method Indwelling Catheter Urinal Urinal # Voids 1 2 - Labs CBC & Chem 7: 10/20/24 05:24 10/19/24 05:12 Labs: Abnormal Lab Results - Last 24 Hours (Table) 10/20/24 Range/Units 05:24 Hgb 12.6 L (13.0-17.0) g/dL MCHC 31.6 L (32.0-37.0) g/dL RDW 15.9 H (11.5-14.5) % Lymphocytes # 0.54 L (0.90-5.00) 10*3/uL
--- NOTE | 2024-10-20 15:45 | P.PN ---
Subjective Progress Note Date: 10/20/24 Principal diagnosis: Reason for follow-up is colitis Patient is a 64-year-old male with a past medical history significant for atrial fibrillation hypertension history of diverticulitis presenting to the hospital for evaluation of abdominal pain did have abnormal CT concerning for thickening of the sigmoid colon concern for possible obstruction and ileus. Patient was taken to the OR status post sigmoid colectomy with end colostomy repair of the umbilical hernia small bowel resection and appendectomy operative report did not mention any abscess. On today's evaluation that is 10/20/2024, Patient is afebrile this morning patient denies having any chest pain shortness of breath or cough, the patient is currently on room air, patient abdominal pain is better controlled some nausea but no vomiting. Patient white count 7.73 Objective - Vital Signs Vital signs: Vital Signs Temp 98.4 F 10/20/24 13:40 Pulse 70 10/20/24 13:40 Resp 19 10/20/24 13:40 BP 148/68 10/20/24 13:40 Pulse Ox 99 10/20/24 13:40 FiO2 Intake & Output 10/19/24 10/20/24 10/20/24 18:59 06:59 18:59 Intake Total 540 Output Total 400 Balance -400 540 Intake: Oral 540 Output: Urine 400 Other: Voiding Method Indwelling Catheter Urinal Urinal # Voids 1 2 - Exam GENERAL DESCRIPTION: Middle-age male lying in bed in no distress RESPIRATORY SYSTEM: Unlabored breathing , decreased breath sounds at bases HEART: S1 S2 regular rate and rhythm , ABDOMEN: Soft , no tenderness EXTREMITIES: No edema feet - Labs CBC & Chem 7: 10/20/24 05:24 10/19/24 05:12 Labs: Abnormal Lab Results - Last 24 Hours (Table) 10/20/24 Range/Units 05:24 Hgb 12.6 L (13.0-17.0) g/dL MCHC 31.6 L (32.0-37.0) g/dL RDW 15.9 H (11.5-14.5) % Lymphocytes # 0.54 L (0.90-5.00) 10*3/uL Assessment and Plan (1) Diverticulitis Current Visit: Yes Status: Acute Code(s): K57.92 - DVTRCLI OF INTEST, PART UNSP, W/O PERF OR ABSCESS W/O BLEED SNOMED Code(s): 628104171 (2) Bowel obstruction Current Visit: Yes Status: Acute Code(s): K56.609 - UNSP INTESTNL OBST, UNSP TO PARTIAL VERSUS COMPLETE OBST SNOMED Code(s): 17897672 Plan: 1patient with initial presentation to hospital with abdominal pain in this patient who did have abnormal CT with mention thickening of the sigmoid colon possible colitis/diverticulitis as the patient did have a 2 colonoscopy last year in September as well as in February and did not show any signs of malignancy as reported by the patient and the patient seem to have shown clinical improvement but no significant improvement on the x-rays. 2patient status post laparotomy small bowel resection and colostomy operative report did not mention any abscess 3patient is afebrile white count has been normal to continue Zosyn and monitor clinical course closely. Dictation was produced using [email or web address] dictation software. please excuse any grammatical, word or spelling errors. Time with Patient: Less than 30
[2024-10-20] MEDS: HYDROcodone/APAP 5-325MG 1 EACH TAB PO PRN (17:50)
--- NOTE | 2024-10-21 11:35 | P.PN ---
Subjective Progress Note Date: 10/21/24 SURGICAL PROGRESS NOTE CHIEF COMPLAINT: Abdominal pain HISTORY OF PRESENT ILLNESS: Postop day #3 status post sigmoid colectomy with end colostomy, repair umbilical hernia, small bowel resection and appendectomy. Patient's pain is controlled. He denies any nausea or vomiting. He tolerated full liquids. Ostomy is functioning. He received his ostomy teaching. He is to be seen by ostomy nurse again today. Afebrile. WBC 7.73 Hgb 12.6 PHYSICAL EXAM: VITAL SIGNS: Reviewed. GENERAL: Well-developed in no acute distress. ABDOMEN: Soft. Incisional dressing clean dry and intact. Colostomy on the left with stool present in the bag. Stoma beefy red NEUROLOGIC: Alert and oriented. Cranial nerves II through XII grossly intact. ASSESSMENT: 1. Small bowel obstruction, colon obstruction and umbilical hernia PLAN: -Advance diet to low fiber -Anticipate possible discharge tomorrow -Continue pain management -Continue antibiotics -Encourage patient increase activity level -Encourage incentive spirometer use -DVT prophylaxis subcu heparin Physician Director Of Collections And Archives note has been reviewed by physician. Signing provider agrees with the documented findings, assessment, and plan of care. I have personally seen and examined the patient, reviewed the FOLDING MACHINE SETTER /PAs history, exam and MDM and agree with the assessment and plan as written. Based on total visit time, I have performed more than 50% of the visit. As above: Patient doing well today. Anticipate discharge tomorrow. Change dressing prior to discharge. Outpatient home care arranged. Objective - Vital Signs Vital signs: Vital Signs Temp 97.5 F L 10/21/24 08:00 Pulse 78 10/21/24 09:27 Resp 18 10/21/24 08:00 BP 134/74 10/21/24 09:27 Pulse Ox 97 10/21/24 08:00 FiO2 Intake & Output 10/20/24 10/21/24 10/21/24 18:59 06:59 18:59 Intake Total 540 Output Total 150 Balance 540 -150 Intake: Oral 540 Output: Stool 150 Other: Voiding Method Urinal Urinal # Voids 3 - Labs CBC & Chem 7: 10/20/24 05:24 10/19/24 05:12
--- NOTE | 2024-10-21 13:49 | P.PN ---
Subjective Progress Note Date: 10/21/24 This is a 64 year old with medical history significant for atrial fibrillation, hypertension. Patient comes into the hospital with complaints of 1 week of abdominal pain thought initially it was a stomach bug was having multiple episodes of nausea and vomiting. He was having frequent stools but denied di arrhea. He was also passing gas and belching frequently. Does have a history of diverticulitis with abscess formation and follows a Dr. Chavez on an outpatient basis. Patient had a colonoscopy back in February 2024 and has not got results yet from [facility]. His initial blood work reveals a blood cell count 10.60, INR 4.1, BUN of 19 creatinine 0.56, sodium 140, potassium 3.9. Urinalysis is not suggestive of infection. Abdominal pelvis CT does reveal a thickened distal sigmoid colon the proximal sigmoid colon and descending colon is thickened wall. There is dilated loops of colon and prominent loops of small bowel filled with air. Scattered air-fluid filled levels are present. Correl ate for distal colonic stenosis or obstruction. Underlying neoplasm should be considered. Cholelithiasis. A periumbilical fat-containing hernia. Patient was admitted to the hospital under general surgery for the possible partial bowel obstruction. NG tube was placed for decompression. Patient will remain n.p.o. and continue with IV fluids. Warfarin has been placed on hold at this time. Medical reports have been requested from [facility] for and currently pending at this time. 10/13/2024 Patient remains in the medical floor NG tube in place. His repeat abdominal x- ray reveals dilated air-filled small bowel loops extending into the pelvis compatible with small bowel obstruction. This may be partial with more normal- appearing colonic bowel gas. His abdomen is less tender and does have increased bowel sounds today. He is feeling better. No BM yet. 10/14/2024 Patient eval today in follow-up on the medical floor. His NG tube accidentally was removed this morning. Had a follow-up abdominal x-ray shows small bowel loops remain prominent but diminished from comparison. Air is present within the colon there is some improvement from comparison. Labs today are showing a white blood cell count of 10.50, hemoglobin 11.6, sodium of 137 potassium of 4.0, BUN of 12.3 creatinine of 0.5, glucose of 125 10/15/24 Patient was seen and examined today. Patient tolerating clear liquid diet. Patient reported having loose bowel movements today, reported 4 loose small bowel movements today. Passing flatus. Denied any nausea or vomiting. Abdomen distended. Patient ambulating. Repeat abdominal x-ray showed increasing air- fluid loops of bowel. General surgery following, recommended to continue IV fluids, antibiotics, n.p.o. after midnight for possible OR tomorrow. Patient is afebrile, heart rate 66, respiratory rate 16, blood pressure 148/90, saturating 98% on room air. WBC 8.2 hemoglobin 11.8 platelet 285. INR trending down 3.3. BMP unremarkable with normal BUN/creatinine. 10/16. Patient seen and examined. Labs reviewed showing WBC 8.24, hemoglobin 12.8, platelet count 325, sodium 137, potassium 3.9, BUN 5.7, creatinine 0.8,. Currently n.p.o. X ray abdomin this morning showed persistent small bowel air- filled dilated loops Denies any abdominal pain. Denies any nausea or vomiting. Tolerating full liquid diet 10/17. Patient seen and examined. Patient does not feel much better from yesterday. Surgery planning exploratory laparotomy tomorrow, n.p.o. after m idnight. Patient to be initiated on heparin pharmacy to dose, heparin needs to be held at 4 AM in the morning tomorrow 10/18. Patient seen examined. Currently n.p.o., going for surgery today labs r eviewed WBC 6.5, hemoglobin 8.7, sodium 139, potassium 4.3, BUN 5.3, creatinine 0.8. 10/19. Patient seen and examined. Patient underwent Sigmoid colectomy with end colostomy, repair umbilical hernia, small bowel resection, appendectomy. Patient has ostomy output 10/20. Patient seen and examined. States he had a rough night, continues to complain of pain at the incision site. Has good ostomy output. Tolerating clear liquid diet 10/21. Patient seen and examined. States he is doing much better. Tolerating liquid diet REVIEW OF SYSTEMS: CONSTITUTIONAL: No fever, no malaise,. CARDIOVASCULAR: No chest pain, no palpitations, no syncope. PULMONARY: No shortness of breath, no cough, GASTROINTESTINAL: As mentioned above NEUROLOGICAL: No headaches, no weakness, PHYSICAL EXAMINATION: GENERAL: The patient is alert and oriented x3, not in any acute distress. Well developed, well nourished. HEENT: Pupils are round and equally reacting to light. EOMI. No scleral icterus. No conjunctival pallor. Normocephalic, atraumatic. No pharyngeal erythema. No thyromegaly. CARDIOVASCULAR: S1 and S2 present. No murmurs, rubs, or gallops. PULMONARY: Chest is clear to auscultation, no wheezing or crackles. ABDOMEN: Soft, nontender, surgical incisions seen, ostomy seen MUSCULOSKELETAL: No joint swelling or deformity. EXTREMITIES: No cyanosis, clubbing, or pedal edema. NEUROLOGICAL: Gross neurological examination did not reveal any focal deficits. SKIN: No rashes. Assessment and plan Abdominal pain because of a colonic obstruction related to recurrent sigmoid diverticulitis; improving Leukocytosis History of atrial fibrillation paroxysmal anticoag with warfarin Supratherapeutic INR/Coagulopathy Hypertension Monitor vital signs Monitor CBC Monitor CMP Patient underwent Sigmoid colectomy with end colostomy, repair umbilical hernia, small bowel resection, appendectomy Current full liquid diet Continue Lopressor Surgery following Labs and medication were reviewed.. Continue same treatment. Continue with symptomatic treatment. Resume home medication. Monitor labs and vitals. DVT and GI prophylaxis. Further recommendations as per clinical course of the patient Dictation was produced using [employer] dictation software. please excuse any grammatical, word or spelling errors. Objective - Vital Signs Vital signs: Vital Signs Temp 98.3 F 10/21/24 13:23 Pulse 65 10/21/24 13:23 Resp 18 10/21/24 13:23 BP 136/80 10/21/24 13:23 Pulse Ox 98 10/21/24 13:23 FiO2 Intake & Output 10/20/24 10/21/24 10/21/24 18:59 06:59 18:59 Intake Total 540 Output Total 150 Balance 540 -150 Intake: Oral 540 Output: Stool 150 Other: Voiding Method Urinal Urinal # Voids 3 - Labs CBC & Chem 7: 10/20/24 05:24 10/19/24 05:12
--- NOTE | 2024-10-21 14:37 | P.PN ---
Subjective Progress Note Date: 10/21/24 Principal diagnosis: Reason for follow-up is colitis Patient is a 64-year-old male with a past medical history significant for atrial fibrillation hypertension history of diverticulitis presenting to the hospital for evaluation of abdominal pain did have abnormal CT concerning for thickening of the sigmoid colon concern for possible obstruction and ileus. Patient was taken to the OR status post sigmoid colectomy with end colostomy repair of the umbilical hernia small bowel resection and appendectomy operative report did not mention any abscess. On today's evaluation that is 10/21/2024,the patient denies any fever or any chills, patient is breathing comfortably on room air, the patient denies chest pain shortness of breath and no significant cough, patient abdominal pain is currently controlled denies any nausea vomiting additional output in his colostomy. No new lab has been obtained today blood culture negative Objective - Vital Signs Vital signs: Vital Signs Temp 98.3 F 10/21/24 13:23 Pulse 65 10/21/24 13:23 Resp 18 10/21/24 13:23 BP 136/80 10/21/24 13:23 Pulse Ox 98 10/21/24 13:23 FiO2 Intake & Output 10/20/24 10/21/24 10/21/24 18:59 06:59 18:59 Intake Total 540 Output Total 150 Balance 540 -150 Intake: Oral 540 Output: Stool 150 Other: Voiding Method Urinal Urinal # Voids 3 - Exam GENERAL DESCRIPTION: Middle-age male lying in bed in no distress RESPIRATORY SYSTEM: Unlabored breathing , decreased breath sounds at bases HEART: S1 S2 regular rate and rhythm , ABDOMEN: Soft , no tenderness EXTREMITIES: No edema feet - Labs CBC & Chem 7: 10/20/24 05:24 10/19/24 05:12 Assessment and Plan (1) Diverticulitis Current Visit: Yes Status: Acute Code(s): K57.92 - DVTRCLI OF INTEST, PART UNSP, W/O PERF OR ABSCESS W/O BLEED SNOMED Code(s): 635229217 (2) Bowel obstruction Current Visit: Yes Status: Acute Code(s): K56.609 - UNSP INTESTNL OBST, UNSP TO PARTIAL VERSUS COMPLETE OBST SNOMED Code(s): 09561426 Plan: 1patient with initial presentation to hospital with abdominal pain in this patient who did have abnormal CT with mention thickening of the sigmoid colon possible colitis/diverticulitis as the patient did have a 2 colonoscopy last year in September as well as in February and did not show any signs of malignancy as reported by the patient and the patient seem to have shown clinical improvement but no significant improvement on the x-rays. 2patient status post laparotomy small bowel resection and colostomy operative report did not mention any abscess 3patient is afebrile white count has been normal has received adequate Zosyn will consider short course of oral Ceftin and Flagyl Dictation was produced using [employer] dictation software. please excuse any grammatical, word or spelling errors. Time with Patient: Less than 30
[2024-10-21] MEDS: metroNIDAZOLE 500 MG TAB PO SCH (16:14)
[2024-10-21] MEDS: CEFDINIR 300 MG CAP PO SCH (20:04)
[2024-10-22 07:54] VITALS: BP 175/78; PULSE 76; RESP 20; TEMP 97
--- NOTE | 2024-10-22 10:34 | P.PN ---
Subjective Progress Note Date: 10/22/24 This is a 64 year old with medical history significant for atrial fibrillation, hypertension. Patient comes into the hospital with complaints of 1 week of abdominal pain thought initially it was a stomach bug was having multiple episodes of nausea and vomiting. He was having frequent stools but denied di arrhea. He was also passing gas and belching frequently. Does have a history of diverticulitis with abscess formation and follows a Dr. Chavez on an outpatient basis. Patient had a colonoscopy back in February 2024 and has not got results yet from [facility]. His initial blood work reveals a blood cell count 10.60, INR 4.1, BUN of 19 creatinine 0.56, sodium 140, potassium 3.9. Urinalysis is not suggestive of infection. Abdominal pelvis CT does reveal a thickened distal sigmoid colon the proximal sigmoid colon and descending colon is thickened wall. There is dilated loops of colon and prominent loops of small bowel filled with air. Scattered air-fluid filled levels are present. Correl ate for distal colonic stenosis or obstruction. Underlying neoplasm should be considered. Cholelithiasis. A periumbilical fat-containing hernia. Patient was admitted to the hospital under general surgery for the possible partial bowel obstruction. NG tube was placed for decompression. Patient will remain n.p.o. and continue with IV fluids. Warfarin has been placed on hold at this time. Medical reports have been requested from [facility] for and currently pending at this time. 10/13/2024 Patient remains in the medical floor NG tube in place. His repeat abdominal x- ray reveals dilated air-filled small bowel loops extending into the pelvis compatible with small bowel obstruction. This may be partial with more normal- appearing colonic bowel gas. His abdomen is less tender and does have increased bowel sounds today. He is feeling better. No BM yet. 10/14/2024 Patient eval today in follow-up on the medical floor. His NG tube accidentally was removed this morning. Had a follow-up abdominal x-ray shows small bowel loops remain prominent but diminished from comparison. Air is present within the colon there is some improvement from comparison. Labs today are showing a white blood cell count of 10.50, hemoglobin 11.6, sodium of 137 potassium of 4.0, BUN of 12.3 creatinine of 0.5, glucose of 125 10/15/24 Patient was seen and examined today. Patient tolerating clear liquid diet. Patient reported having loose bowel movements today, reported 4 loose small bowel movements today. Passing flatus. Denied any nausea or vomiting. Abdomen distended. Patient ambulating. Repeat abdominal x-ray showed increasing air- fluid loops of bowel. General surgery following, recommended to continue IV fluids, antibiotics, n.p.o. after midnight for possible OR tomorrow. Patient is afebrile, heart rate 66, respiratory rate 16, blood pressure 148/90, saturating 98% on room air. WBC 8.2 hemoglobin 11.8 platelet 285. INR trending down 3.3. BMP unremarkable with normal BUN/creatinine. 10/16. Patient seen and examined. Labs reviewed showing WBC 8.24, hemoglobin 12.8, platelet count 325, sodium 137, potassium 3.9, BUN 5.7, creatinine 0.8,. Currently n.p.o. X ray abdomin this morning showed persistent small bowel air- filled dilated loops Denies any abdominal pain. Denies any nausea or vomiting. Tolerating full liquid diet 10/17. Patient seen and examined. Patient does not feel much better from yesterday. Surgery planning exploratory laparotomy tomorrow, n.p.o. after m idnight. Patient to be initiated on heparin pharmacy to dose, heparin needs to be held at 4 AM in the morning tomorrow 10/18. Patient seen examined. Currently n.p.o., going for surgery today labs r eviewed WBC 6.5, hemoglobin 8.7, sodium 139, potassium 4.3, BUN 5.3, creatinine 0.8. 10/19. Patient seen and examined. Patient underwent Sigmoid colectomy with end colostomy, repair umbilical hernia, small bowel resection, appendectomy. Patient has ostomy output 10/20. Patient seen and examined. States he had a rough night, continues to complain of pain at the incision site. Has good ostomy output. Tolerating clear liquid diet 10/21. Patient seen and examined. States he is doing much better. Tolerating liquid diet 10/22. Patient seen and examined. States he is doing much better, keen to be discharged today. patient can be discharged from medicine team perspective REVIEW OF SYSTEMS: CONSTITUTIONAL: No fever, no malaise,. CARDIOVASCULAR: No chest pain, no palpitations, no syncope. PULMONARY: No shortness of breath, no cough, GASTROINTESTINAL: As mentioned above NEUROLOGICAL: No headaches, no weakness, PHYSICAL EXAMINATION: GENERAL: The patient is alert and oriented x3, not in any acute distress. Well developed, well nourished. HEENT: Pupils are round and equally reacting to light. EOMI. No scleral icterus. No conjunctival pallor. Normocephalic, atraumatic. No pharyngeal erythema. No thyromegaly. CARDIOVASCULAR: S1 and S2 present. No murmurs, rubs, or gallops. PULMONARY: Chest is clear to auscultation, no wheezing or crackles. ABDOMEN: Soft, nontender, surgical incisions seen, ostomy seen MUSCULOSKELETAL: No joint swelling or deformity. EXTREMITIES: No cyanosis, clubbing, or pedal edema. NEUROLOGICAL: Gross neurological examination did not reveal any focal deficits. SKIN: No rashes. Assessment and plan Abdominal pain because of a colonic obstruction related to recurrent sigmoid diverticulitis; improving Leukocytosis History of atrial fibrillation paroxysmal anticoag with warfarin Supratherapeutic INR/Coagulopathy Hypertension Monitor vital signs Monitor CBC Monitor CMP Patient underwent Sigmoid colectomy with end colostomy, repair umbilical hernia, small bowel resection, appendectomy Currently low fiber diet Continue Lopressor Surgery following Currently on Omnicef and Flagyl per ID Patient is cleared from medicine team perspective for discharge Labs and medication were reviewed.. Continue same treatment. Continue with symptomatic treatment. Resume home medication. Monitor labs and vitals. DVT and GI prophylaxis. Further recommendations as per clinical course of the patient Dictation was produced using [employer] dictation software. please excuse any grammatical, word or spelling errors. Objective - Vital Signs Vital signs: Vital Signs Temp 97 F L 10/22/24 07:52 Pulse 76 10/22/24 07:52 Resp 20 10/22/24 07:52 BP 175/78 10/22/24 07:52 Pulse Ox 98 10/22/24 07:52 FiO2 Intake & Output 10/21/24 10/22/24 10/22/24 18:59 06:59 18:59 Intake Total 1665 120 Balance 1665 120 Intake: Intake, IV Titration 1125 Amount D5-0.45% NaCl with KCl 1125 20Meq/l 1,000 ml @ 125 mls/hr IV .Q8H ELVIS Rx#: [id number] Oral 540 120 Other: Voiding Method Urinal # Voids 2 3 - Labs CBC & Chem 7: 10/20/24 05:24 10/19/24 05:12
--- NOTE | 2024-10-22 11:05 | P.DS ---
Providers Date of admission: 10/12/24 11:47 Expected date of discharge: 10/22/24 Attending physician: Stoney Chavez Consults: 10/12/24 12:33 Consult Physician Urgent Consulting Provider: Angela Gonzalez Consult Reason/Comments: bowel obstruction Do you want consulting provider notified?: Yes 10/16/24 10:50 Consult Physician Routine Consulting Provider: Kate Roque Consult Reason/Comments: Recurrent diverticulitis Do you want consulting provider notified?: Yes Primary care physician: Physician Nonstaff Hospital Course: Discharge diagnosis 1. Small bowel obstruction, colon obstruction and umbilical hernia Hospital course This is a 64-year-old male who presented with abdominal pain and found evidence to have a partial colonic obstruction on CAT scan. Initially tried to manage patient conservatively. However, patient did require surgery he is status post sigmoid colectomy with end colostomy, repair of umbilical hernia and small bowel resection and an appendectomy. Patient has tolerated surgery well. His pain is controlled. His ostomy is functioning. He has been up and ambulating. He is tolerating diet. He is afebrile. He is stable for discharge. He will be discharged with Augmentin as recommended per ID service. Patient is stable for discharge. Please refer to chart for any further details. Physician Associate Professor Of Literacy note has been reviewed by physician. Signing provider agrees with the documented findings, assessment, and plan of care. Patient Condition at Discharge: Stable Plan - Discharge Summary Discharge Rx Participant: No New Discharge Prescriptions: New Amoxic-Pot Clav 875-125Mg [Augmentin 875-125] 1 tab PO Q12HR 7 Days #14 tab HYDROcodone/APAP 5-325MG [[place] 5-325] 1 tab PO Q6HR PRN 3 Days #12 tab PRN Reason: Pain Continue Magnesium Citrate and Oxide [Magnesium] 250 mg PO DAILY Vit C/E/Zn/Coppr/Lutein/Zeaxan [Preservision Areds 2 Softgel] 1 cap PO BID@799,1999 Cholecalciferol [Vitamin D3 (25 Mcg = 1000 Iu)] 50 mcg PO DAILY Metoprolol Tartrate [Lopressor] 25 mg PO BID@799,1999 Warfarin [Coumadin] 10 mg PO DAILY@1800 Discharge Medication List Cholecalciferol [Vitamin D3 (25 Mcg = 1000 Iu)] 50 mcg PO DAILY 09/13/23 [History] Magnesium Citrate and Oxide [Magnesium] 250 mg PO DAILY 09/13/23 [History] Metoprolol Tartrate [Lopressor] 25 mg PO BID@08,199909/13/23 [History] Vit C/E/Zn/Coppr/Lutein/Zeaxan [Preservision Areds 2 Softgel] 1 cap PO BID@0800,199910/12/24 [History] Warfarin [Coumadin] 10 mg PO DAILY@1800 10/12/24 [History] Amoxic-Pot Clav 875-125Mg [Augmentin 875-125] 1 tab PO Q12HR 7 Days #14 tab 10/22/24 [Rx] HYDROcodone/APAP 5-325MG [[place] 5-325] 1 tab PO Q6HR PRN 3 Days #12 tab 10/22/24 [Rx] Follow up Appointment(s)/Referral(s): [facility] [NON-STAFF] - 1 Week Brant Potts MD [REFERRING] - 1-2 days Stoney Chavez MD [Medical Doctor] - 1 Week Activity/Diet/Wound Care/Special Instructions: Ostomy: [place] 1 piece cut to fit #[id number] Change every 3 to 5 days and if leaking Empty when half full Last changed: 10/19/[address] while taking [place] No lifting over 10 pounds You may shower. No soaking or tub baths for 2 weeks Very light activity until you are reevaluated at your follow up appointment with your surgeon Discharge Disposition: HOME WITH HOME HEALTH SERVICES
--- NOTE | 2024-10-25 14:50 | P.PN ---
Subjective Progress Note Date: 10/22/24 Principal diagnosis: Reason for follow-up is colitis Patient is a 64-year-old male with a past medical history significant for atrial fibrillation hypertension history of diverticulitis presenting to the hospital for evaluation of abdominal pain did have abnormal CT concerning for thickening of the sigmoid colon concern for possible obstruction and ileus. Patient was taken to the OR status post sigmoid colectomy with end colostomy repair of the umbilical hernia small bowel resection and appendectomy operative report did not mention any abscess. On today's evaluation that is 10/22/2024,the patient remains to be afebrile, patient is on room air not requiring supplemental oxygen and denies any shortness of breath no chest pain or cough.Patient denies having any nausea or vomiting, abdominal pain has improved but did have output in his colostomy. No new lab has been obtained today Objective - Vital Signs Vital signs: Vital Signs Temp 97 F L 10/22/24 07:52 Pulse 76 10/22/24 07:52 Resp 20 10/22/24 07:52 BP 175/78 10/22/24 07:52 Pulse Ox 98 10/22/24 07:52 FiO2 Intake & Output 10/21/24 10/22/24 10/22/24 18:59 06:59 18:59 Intake Total 1665 120 Balance 1665 120 Intake: Intake, IV Titration 1125 Amount D5-0.45% NaCl with KCl 1125 20Meq/l 1,000 ml @ 125 mls/hr IV .Q8H ELVIS Rx#: [id number] Oral 540 120 Other: Voiding Method Urinal # Voids 2 3 - Exam GENERAL DESCRIPTION: Middle-age male lying in bed in no distress RESPIRATORY SYSTEM: Unlabored breathing , decreased breath sounds at bases HEART: S1 S2 regular rate and rhythm , ABDOMEN: Soft , no tenderness EXTREMITIES: No edema feet - Labs CBC & Chem 7: 10/20/24 05:24 10/19/24 05:12 Assessment and Plan (1) Diverticulitis Status: Acute Code(s): K57.92 - DVTRCLI OF INTEST, PART UNSP, W/O PERF OR ABSCESS W/O BLEED SNOMED Code(s): 916957467 (2) Bowel obstruction Status: Acute Code(s): K56.609 - UNSP INTESTNL OBST, UNSP TO PARTIAL VERSUS COMPLETE OBST SNOMED Code(s): 10456810 Plan: 1patient with initial presentation to hospital with abdominal pain in this patient who did have abnormal CT with mention thickening of the sigmoid colon possible colitis/diverticulitis as the patient did have a 2 colonoscopy last year in September as well as in February and did not show any signs of malignancy as reported by the patient and the patient seem to have shown clinical improvement but no significant improvement on the x-rays. 2patient status post laparotomy small bowel resection and colostomy operative report did not mention any abscess 3patient is afebrile white count has been normal has received adequate Zosyn, will consider short course of oral Augmentin on discharge discussed with the MANAGER CREDIT RISK for surgical team working on discharge Dictation was produced using [employer] dictation software. please excuse any g rammatical, word or spelling errors. Time with Patient: Less than 30
== END 2024-10-22 11:49 | disposition home health service (06) | DRG 330 ==
LOC: EC 09:34 → 4SSUR 11:47 → 5NMEDONC 19:56
PROVIDERS: ADMIT Surgery; ATTEND Surgery
PROC: 0D9670Z Drainage of Stomach with Drainage Device, Via Natural or Artificial Opening (ICD-10-PCS; 2024-10-12)
PROC: 0D1M0Z4 Bypass Descending Colon to Cutaneous, Open Approach (ICD-10-PCS; principal; 2024-10-18 08:00)
PROC: 0DTJ0ZZ Resection of Appendix, Open Approach (ICD-10-PCS; principal; 2024-10-18 08:00)
PROC: 0DB80ZZ Excision of Small Intestine, Open Approach (ICD-10-PCS; principal; 2024-10-18 08:00)
PROC: 0DTN0ZZ Resection of Sigmoid Colon, Open Approach (ICD-10-PCS; principal; 2024-10-18 08:00)
PROC: 0WQF0ZZ Repair Abdominal Wall, Open Approach (ICD-10-PCS; principal; 2024-10-18 08:00)
DX: K57.32 Diverticulitis of large intestine without perforation or abscess without bleeding (principal); K56.600 Partial intestinal obstruction, unspecified as to cause; I10 Essential (primary) hypertension; K56.7 Ileus, unspecified; I48.0 Paroxysmal atrial fibrillation; K42.9 Umbilical hernia without obstruction or gangrene; K52.9 Noninfective gastroenteritis and colitis, unspecified; R79.1 Abnormal coagulation profile; Z79.01 Long term (current) use of anticoagulants; Z79.899 Other long term (current) drug therapy; Z86.0100 Personal history of colon polyps, unspecified; Z87.891 Personal history of nicotine dependence
CPT/HCPCS: 36415; 74019; 74177; 80048; 80053; 81003; 82150; 83605; 83690; 83735; 85025; 85610; 85730; 87040; 88307; 96361; 96365; 96366; 96375; 99285